=== PATIENT | male | born 1955 | race Caucasian/White ===

== ENCOUNTER → 2018-05-07 17:16 | Outpatient (CLI) | payer MEDICAID, SELFPAY ==
[2018-05-07 18:16] LABS: Basophils # 0.1 K/mm3 (0-0.2); Eosinophils # 0.3 K/mm3 (0.0-0.4); Eosinophils % 3.4 % (0.1-12.0); Hematocrit 51.7 % (42.0-52.0); Hemoglobin 16.8 g/dL (14.1-18.0); Lymphocytes # 2.5 K/mm3 (0.7-4.5); Lymphocytes % 29.7 K/mm3 (10-50); Mean Corpuscular HGB Conc 32.5 g/dL (31.8-35.4); Mean Corpuscular Volume 92.3 fl (80-94); Mean Platelet Volume 8.3 fl (7.4-10.4); Monocytes # 0.5 K/mm3 (0.1-1.0); Monocytes % 5.8 % (1.7-9.3); Neutrophils # 4.9 K/mm3 (1.8-7.8); Platelet Count 200 K/mm3 (142-424); Red Blood Count 5.61 M/mm3 (4.60-6.20); White Blood Count 8.2 K/mm3 (4.8-10.8)
[2018-05-07 18:32] LABS: Alanine Aminotransferase 47 U/L (12-78); Albumin Level 3.7 gm/dL (3.4-5.0); Albumin/Globulin Ratio 1.1 (1.1-1.8); Alkaline Phosphatase 103 U/L (46-116); Anion Gap 15.2 mEq/L (5-15); Bilirubin,Total 0.3 mg/dL (0.2-1.0); Blood Urea Nitrogen 12 mg/dL (7-18); Calcium 8.4 mg/dL (8.5-10.1); Carbon Dioxide 25 mmol/L (21.0-32.0); Chloride 104 mmol/L (98-107); Chol/HDL Ratio 7.9 (1-3.5); Cholesterol 245 mg/dL (140-200); Creatinine,Serum 0.75 mg/dL (0.70-1.30); Estimated Glomerular Filt Rate 105 ml/min (>60); Free T4 (Free Thyroxine) 0.97 ng/dl (0.76-1.46); GFR (African American) 127 ML/MIN (>60); Globulin 3.4 gm/dl (1.3-3.2); Glucose 138 mg/dL (74-106); HDL Cholesterol 31 mg/dL (27-67); Sodium 140 mmol/L (136-145); Thyroid Stimulating Hormone 1.08 uIU/ml (0.358-3.740); Total Protein,Serum 7.1 gm/dL (6.4-8.2)
[2018-05-07 18:33] LABS: Potassium 4.2 mmoL/L (3.5-5.1); Triglycerides 492 mg/dL (30-200)
[2018-05-07 18:34] LABS: Aspartate Amino Transferase 27 U/L (15-37)
== END ==
PROVIDERS: PCP Emergency Medicine; Visit Provider Emergency Medicine
DX: R10.9 Unspecified abdominal pain (principal)
CPT/HCPCS: 80053; 80061; 83880; 84439; 84443; 85025

== ENCOUNTER → 2018-05-10 10:33 | Outpatient (CLI) | payer MEDICAID, SELFPAY ==
--- NOTE | 2018-05-10 10:39 | XR_ITS ---
XR chest 2V HISTORY: Cough, smoker ITS.REASON: abdominal pain ORDERING PHYSICIAN: David Domingo MD PATIENT AGE: 62 years COMPARISON: None FINDINGS: Unremarkable cardiovascular structures. There is evidence of old granulomatous disease. No lobar consolidation or collapse. No acute bony anomalies. IMPRESSION: Old granulomatous disease, no acute finding
== END ==
PROVIDERS: PCP Emergency Medicine; Visit Provider Emergency Medicine
DX: R10.9 Unspecified abdominal pain (principal)
CPT/HCPCS: 71046

== ENCOUNTER → 2018-05-13 11:49 | Outpatient (CLI) | payer MEDICAID, SELFPAY ==
--- NOTE | 2018-05-13 11:50 | NM_ITS ---
History and Indications: Coronary artery disease, history of [place], obesity, hyperlipidemia, chronic tobacco use, family history, chest pain, shortness of breath syncope palpitations and fatigue Procedure: Patient received a 0.4 mg of intravenous Lexiscan, resting heart rate was extreme 9 bpm resting blood pressure 119/76, with Lexiscan maximum heart rate achieved was 99 bpm is less than 85% of the maximum predicted heart rate and a blood pressure was 102/60. With Lexiscan patient complained of shortness of breath and nausea Electrocardiogram: Resting electrocardiogram showed sinus rhythm inferior infarct age indeterminate, with Lexiscan less than 1.[address] segment depression noted from the baseline EKG. Occasional premature ventricular complex seen. The EKG portion of the Lexiscan Myoview is nondiagnostic. Cardiac stress and resting SPECT images: Cardiac stress and resting SPECT images were obtained using technetium 99 Myoview 30.2 mCi stress and 9.9 mCi rest, gated SPECT further analysis of segmental wall motion and calculation of the ejection fraction also done. Cardiac stress and rest SPECT images show a moderate to large size area of fixed defect involving the anterior, anteroapical, apex, anteroseptal and inferoapical wall. This is consistent with area of myocardial scarring without significant brian-infarct ischemia, computer derived ejection fraction is 26%, mild hypo to akinesis involving the anterior, anteroapical, anteroseptal and inferior apical wall. Right ventricle is normal size and contractility. Conclusion: 1. The EKG portion of the Lexiscan Myoview is nondiagnostic. 2. Scintigraphic evidence of extensive myocardial scarring involving the anterior, anteroapical, anteroseptal and inferior apical wall without significant brian-infarct ischemia, computer derived ejection fraction is 26% with multiple segmental wall motion abnormality described above, right ventricle is normal size and contractility. 3. Abnormal Lexiscan Myoview study.
--- NOTE | 2018-05-13 11:50 | CA_ITS ---
PROCEDURE: 2-D M-mode and color Doppler study INDICATIONS FOR THE TEST: Chest painX COPD Heart Murmur Tobacco SmokingX Palpitations Fatigue Syncope Edema Hypertension Diabetes Mellitus Rheumatic Fever SOBXDOE ObesityXHyperlipidemia Family History HD Additional History H/O THROMBUS HEART APPROX 5 YRS AGO H/O CAD,[place], STENT PATIENT INFORMATION HEIGHT: 72 WEIGHT:271 GENDER: Male B/P:111/76 2-D/M-MODE INTERPRETATION: 2-D MEASUREMENTS OBSERVED VALUES IN CMS Right Ventricular Dimension (RVDd) 2.6 Interventricular Septum (Thickness)(IVsd) .7 Left Ventricular Internal Dimensions(LVIDd) 6.1 Left Ventricular Posterior Wall (Thickness)(LVPWd) 1.0 Aortic Root 3.1 Aortic Cusp Separation 1.8 Left Atrial Dimensions (LAD) 3.2 2D 1. Technically difficult study because of the patient's factor and poor acoustic windows 2. The left atrium is mildly enlarged, left ventricle is mildly dilated, reduced left ventricular systolic function, visually estimated ejection fraction approximately 30%, there is marked hypokinesis involving mid to distal septum, anterior, anteroapical and apical wall. There is echodense structure seen in the apex which is likely an left ventricular apical thrombus. 3. The right atrium and right ventricle are mildly dilated with normal contractility. 4. The aortic valve is thickened and calcified leaflet continue to display mobility. 5. The mitral and tricuspid valve leaflets are minimally thickened 6. The pulmonic valve is poorly visualized 7. No significant pericardial effusion noted. DOPPLER INTERROGATION: Doppler interrogation of the aortic, mitral and tricuspid valvular presence of mild mitral and tricuspid regurgitation, tricuspid regurgitation jet velocity is inadequate for calculation of the right ventricular systolic pressure, diastolic parameters are inconclusive. CONCLUSION: 1. Technically difficult study because of the patient's factor and poor acoustic windows 2. Mildly enlarged left atrium, dilated left ventricle, severely reduced left ventricular systolic function, visually estimated ejection fraction 30% with segmental wall motion abnormality described above, there is left ventricular apical thrombus seen. 3. Mild mitral and tricuspid regurgitation 4. No significant pericardial effusion noted.
--- NOTE | 2018-05-13 15:07 | HMH.ITSHM ---
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 []LIPITOR ASA
== END ==
PROVIDERS: PCP Emergency Medicine; Visit Provider Internal Medicine
DX: R01.1 Cardiac murmur, unspecified (principal); I20.9 Angina pectoris, unspecified; I25.110 Atherosclerotic heart disease of native coronary artery with unstable angina pectoris; I25.2 Old myocardial infarction; R06.09 Other forms of dyspnea; F17.200 Nicotine dependence, unspecified, uncomplicated
CPT/HCPCS: 78452; 93017; 93306; A9502; J2785

== ENCOUNTER → 2018-06-17 10:00 | Outpatient (CLI) | payer MEDICAID, SELFPAY ==
--- NOTE | 2018-06-17 10:02 | XR_ITS ---
XR chest 2V HISTORY: ITS.REASON: burning sensation with AICD, check lead placement ORDERING PHYSICIAN: Jovita León PATIENT AGE: 62 years COMPARISON: 06/04/2018 FINDINGS: The cardiomediastinal silhouette and pulmonary vascularity are within normal limits. There has been prior insertion of a bipolar pacemaker with AICD lead which appears to be in good position. The lungs are clear without infiltrates, suspicious nodules, or pleural effusions. No acute bony abnormalities. IMPRESSION: Cardiac pacemaker device remains in place, no change with no acute finding
== END ==
PROVIDERS: PCP Emergency Medicine; Visit Provider Nurse Practitioner Family
DX: Z95.810 Presence of automatic (implantable) cardiac defibrillator (principal)
CPT/HCPCS: 71046

== ENCOUNTER → 2018-08-09 14:53 | Outpatient (CLI) | payer MEDICAID, SELFPAY ==
[2018-08-09 15:48] LABS: Alanine Aminotransferase 40 U/L (12-78); Albumin Level 3.9 gm/dL (3.4-5.0); Albumin/Globulin Ratio 1.2 (1.1-1.8); Alkaline Phosphatase 100 U/L (46-116); Anion Gap 16.1 mEq/L (5-15); Aspartate Amino Transferase 18 U/L (15-37); Bilirubin,Total 0.7 mg/dL (0.2-1.0); Blood Urea Nitrogen 17 mg/dL (7-18); Calcium 8.9 mg/dL (8.5-10.1); Carbon Dioxide 24 mmol/L (21.0-32.0); Chloride 101 mmol/L (98-107); Chol/HDL Ratio 5.1 (1-3.5); Cholesterol 188 mg/dL (140-200); Creatinine,Serum 0.99 mg/dL (0.70-1.30); Estimated Glomerular Filt Rate 76 ml/min (>60); Free T4 (Free Thyroxine) 1.02 ng/dl (0.76-1.46); GFR (African American) 92 ML/MIN (>60); Globulin 3.2 gm/dl (1.3-3.2); Glucose 194 mg/dL (74-106); HDL Cholesterol 37 mg/dL (27-67); LDL Cholesterol 108 mg/dL (0-130); Potassium 4.1 mmoL/L (3.5-5.1); Sodium 137 mmol/L (136-145); Total Protein,Serum 7.1 gm/dL (6.4-8.2); Triglycerides 217 mg/dL (30-200); VLDL Cholesterol 43 mg/dL (0-40)
[2018-08-09 16:21] LABS: Basophils # 0.1 K/mm3 (0-0.2); Basophils % 0.9 % (0.1-2.0); Eosinophils # 0.2 K/mm3 (0.0-0.4); Eosinophils % 3.2 % (0.1-12.0); Hematocrit 48.8 % (42.0-52.0); Hemoglobin 16.5 g/dL (14.1-18.0); Lymphocytes % 27.5 % (10-50); Mean Corpuscular HGB Conc 33.8 g/dL (31.8-35.4); Mean Corpuscular Hemoglobin 30.2 pg (27.0-31.2); Mean Corpuscular Volume 89.5 fl (80-94); Mean Platelet Volume 8.3 fl (7.4-10.4); Monocytes # 0.5 K/mm3 (0.1-1.0); Monocytes % 6.6 % (1.7-9.3); Neutrophils # 4.5 K/mm3 (1.8-7.8); Neutrophils % 61.8 % (37.0-80.0); Platelet Count 175 K/mm3 (142-424); Red Blood Count 5.45 M/mm3 (4.60-6.20); Red Cell Distribution Width 13.5 % (11.5-17.5); White Blood Count 7.2 K/mm3 (4.8-10.8)
[2018-08-11 08:42] LABS: Vitamin D 25 Hydroxy 17.6 ng/mL (30.0-100.0)
== END ==
PROVIDERS: Visit Provider Emergency Medicine
DX: I25.10 Atherosclerotic heart disease of native coronary artery without angina pectoris (principal)
CPT/HCPCS: 80053; 80061; 82652; 84439; 84443; 85025

== ENCOUNTER → 2018-08-20 10:04 | Outpatient (CLI) | payer MEDICAID, SELFPAY ==
[2018-08-20 14:05] LABS: Hemoglobin A1C 7.7 % (0.0-7.0)
== END ==
PROVIDERS: Visit Provider Emergency Medicine
DX: R73.9 Hyperglycemia, unspecified (principal)
CPT/HCPCS: 36415; 83036

== ENCOUNTER → 2018-09-14 08:45 | Outpatient (CLI) | payer MEDICAID, SELFPAY | PROVIDERS: PCP Physician Assistant; Visit Provider Physician Assistant | DX: Z71.3 Dietary counseling and surveillance (principal); E11.9 Type 2 diabetes mellitus without complications | CPT/HCPCS: 97802 ==

== ENCOUNTER → 2018-10-26 11:47 | Outpatient (CLI) | payer MEDICAID, SELFPAY ==
--- NOTE | 2018-10-26 11:51 | CA_ITS ---
PROCEDURE: 2-D M-mode and color Doppler study INDICATIONS FOR THE TEST: Chest pain COPD Heart Murmur Tobacco Smoking+ Palpitations Fatigue Syncope Edema Hypertension+Diabetes Mellitus Rheumatic Fever SOB+MONGE Obesity+Hyperlipidemia+ Family History HD Additional History 10/22/18 LEFT ATRIAL APPENDAGE CLIP, LV THROMBUS, AFIB, AICD, PT FLAT ON BACK DUE TO RECENT SURGERY PATIENT INFORMATION HEIGHT: 72 WEIGHT:258 GENDER: Male B/P:109/60 2-D/M-MODE INTERPRETATION: 2-D MEASUREMENTS OBSERVED VALUES IN CMS Right Ventricular Dimension (RVDd) Interventricular Septum (Thickness)(IVsd) Left Ventricular Internal Dimensions(LVIDd) Left Ventricular Posterior Wall (Thickness)(LVPWd) Aortic Root 3.4 Aortic Cusp Separation 1.9 Left Atrial Dimensions (LAD) 4.0 2D 1. Technically difficult study because of the patient's factor and poor acoustic windows 2. Left atrium is mildly enlarged, left ventricle is mildly dilated, there is severely reduced left ventricular systolic function, visually estimated ejection fraction 25-30%, there is marked hypo to akinesis involving the mid to distal septum, anterior, anteroapical, apex and inferior apical bryant. There is left ventricle apical thrombus seen. 3. The right atrium and right ventricle are normal size and contractility. There is a AICD lead seen in the right ventricle. 4. The mitral and tricuspid valve leaflets are minimally thickened 5. The aortic valve is is minimally thickened and calcified leaflet continue to display mobility. 6. No significant pericardial effusion noted. DOPPLER INTERROGATION: Doppler interrogation of the aortic, mitral and tricuspid valvular presence of mild mitral and tricuspid regurgitation, tricuspid regurgitation jet velocity is inadequate for calculation of the right ventricular systolic pressure, diastolic parameters are inconclusive. CONCLUSION: 1. Technically difficult study because of the patient's factor and poor acoustic windows 2. Mildly enlarged left atrium, mildly dilated left ventricle, severely reduced left ventricular systolic function, visually estimated ejection fraction approximately 25-30% with multiple segmental wall motion abnormality described above, there is left ventricular apical thrombus seen. Diastolic parameters are inconclusive 3. Mild mitral and tricuspid regurgitation 4. No significant pericardial effusion noted.
--- NOTE | 2018-10-26 12:26 | XR_ITS ---
XR chest 2V HISTORY: ITS.REASON: dyspnea, S/P CASSANDRA procedure ORDERING PHYSICIAN: Santana Beyer MD PATIENT AGE: 63 years COMPARISON: 1221 and 18 FINDINGS: Bipolar pacer remains in place. There has been an interval left atrial appendage clipping. Consolidation is present in the lingula which has developed in the interval. There is also some atelectasis or infiltrate in the right mid lung along the major fissure. There is mild blunting of the left CP angle. IMPRESSION: 1. Interval left atrial appendage clipping. 2. Opacification within the lingula consistent with pneumonia and/or volume loss with thickening along the right major fissure and small left pleural effusion
== END ==
PROVIDERS: PCP Emergency Medicine; Visit Provider Internal Medicine
DX: R06.02 Shortness of breath (principal); I25.10 Atherosclerotic heart disease of native coronary artery without angina pectoris; I42.0 Dilated cardiomyopathy; I50.20 Unspecified systolic (congestive) heart failure; I48.0 Paroxysmal atrial fibrillation; E11.8 Type 2 diabetes mellitus with unspecified complications; E66.09 Other obesity due to excess calories; E78.5 Hyperlipidemia, unspecified; Z95.810 Presence of automatic (implantable) cardiac defibrillator
CPT/HCPCS: 36415; 71046; 83880; 93306

== ENCOUNTER → 2018-12-28 13:43 | Outpatient (CLI) | payer MEDICAID, SELFPAY ==
[2018-12-29 14:14] LABS: Basophils # 0.1 K/mm3 (0-0.2); Basophils % 1.1 % (0.1-2.0); Eosinophils # 0.2 K/mm3 (0.0-0.4); Eosinophils % 2.6 % (0.1-12.0); Hematocrit 53.7 % (42.0-52.0); Hemoglobin 16.8 g/dL (14.1-18.0); Lymphocytes # 2.4 K/mm3 (0.7-4.5); Lymphocytes % 27.5 % (10-50); Mean Corpuscular HGB Conc 31.2 g/dL (31.8-35.4); Mean Corpuscular Hemoglobin 29.6 pg (27.0-31.2); Mean Corpuscular Volume 94.8 fl (80-94); Monocytes # 0.6 K/mm3 (0.1-1.0); Neutrophils # 5.3 K/mm3 (1.8-7.8); Neutrophils % 61.8 % (37.0-80.0); Platelet Count 226 K/mm3 (142-424); Red Blood Count 5.67 M/mm3 (4.60-6.20); Red Cell Distribution Width 13.8 % (11.5-17.5); White Blood Count 8.6 K/mm3 (4.8-10.8)
[2018-12-29 14:37] LABS: Alanine Aminotransferase 42 U/L (12-78); Albumin Level 3.9 gm/dL (3.4-5.0); Albumin/Globulin Ratio 1.3 (1.1-1.8); Alkaline Phosphatase 105 U/L (46-116); Anion Gap 15.4 mEq/L (5-15); Aspartate Amino Transferase 27 U/L (15-37); Bilirubin,Total 0.5 mg/dL (0.2-1.0); Blood Urea Nitrogen 12 mg/dL (7-18); Calcium 8.8 mg/dL (8.5-10.1); Carbon Dioxide 25 mmol/L (21.0-32.0); Chloride 104 mmol/L (98-107); Chol/HDL Ratio 4.1 (1-3.5); Cholesterol 149 mg/dL (140-200); Creatinine,Serum 0.94 mg/dL (0.70-1.30); Estimated Glomerular Filt Rate 81 ml/min (>60); GFR (African American) 98 ML/MIN (>60); Glucose 94 mg/dL (74-106); HDL Cholesterol 36 mg/dL (27-67); LDL Cholesterol 87 mg/dL (0-130); Potassium 4.4 mmoL/L (3.5-5.1); Sodium 140 mmol/L (136-145); T4 (Thyroxine) 7.1 ug/dl (4.7-13.3); Thyroid Stimulating Hormone 1.04 uIU/ml (0.358-3.740); Total Protein,Serum 6.9 gm/dL (6.4-8.2); Triglycerides 128 mg/dL (30-200); VLDL Cholesterol 26 mg/dL (0-40)
[2019-01-17 23:09] LABS: 1,25-Dihydroxy, Vitamin D-2 37 pg/mL (.)
[2019-01-21 17:41] LABS: 1,25 Dihydroxy Vitamin D 59 pg/mL (.); 1,25-Dihydroxy, Vitamin D-3 22 pg/mL (.)
== END ==
PROVIDERS: Visit Provider Emergency Medicine
DX: E11.9 Type 2 diabetes mellitus without complications (principal)
CPT/HCPCS: 80053; 80061; 82652; 83036; 84436; 84443; 85025

== ENCOUNTER → 2018-12-30 10:58 | Outpatient (CLI) | payer MEDICAID, SELFPAY ==
--- NOTE | 2018-12-30 11:04 | XR_ITS ---
XR foot wt bearing LT 3V HISTORY: ITS.REASON: pain ORDERING PHYSICIAN: Evonne Chanel DPM PATIENT AGE: 63 years COMPARISON: None FINDINGS: Bone density, joint spaces and alignment are normal. There is no acute fracture. There are small plantar spur and linear calcification related to the distal Achilles tendon near the attachment to the calcaneus. Impression: No acute process. Plantar small calcaneal spur. Probable Achilles calcific tendinosis.
--- NOTE | 2018-12-30 11:04 | XR_ITS ---
XR foot wt bearing RT 3V HISTORY: ITS.REASON: pain ORDERING PHYSICIAN: Evonne Chanel DPM PATIENT AGE: 63 years COMPARISON: None FINDINGS: No fracture or dislocation. No lytic or blastic change. There is normal mineralization.. The joint spaces are well-preserved. No significant degenerative/arthritic changes. No erosive changes evident. There is a 2 mm plantar calcaneal spur. IMPRESSION: No acute process. Small plantar calcaneal spur.
== END ==
PROVIDERS: PCP Emergency Medicine; Visit Provider Podiatrist
DX: M79.672 Pain in left foot (principal); M79.671 Pain in right foot
CPT/HCPCS: 73630

== ENCOUNTER → 2019-01-10 10:17 | Outpatient (CLI) | payer MEDICAID, SELFPAY ==
--- NOTE | 2019-01-10 10:20 | US_ITS ---
US Arterial Lower Ext Rest History: Claudication, skin changes, smoker ORDERING PHYSICIAN: David Domingo MD PATIENT AGE: 63 years TECHNIQUE: Segmental pressures obtained of both right and left leg. These are compared to brachial blood pressure to yield index at each level sampled including summary NISHI. The data sheets from the procedure are available in PACS FINDINGS Rest study only performed today No prior studies available for comparison. Blood pressures reported are in millimeters mercury. RIGHT LEG NISHI = 1.3. RIGHT LEG TBI=.8 Brachial BP: 88 Thigh BP: 104 Calf BP: 112 Ankle PT: 126 Ankle DP : 125 Digit =81 LEFT LEG NISHI = .7 LEFT LEG TBI= .4 Brachial BPD: 99 Thigh BP: 112 Calf BP: 64 Ankle PT:66 Ankle DP: 73 Digit = 44 Pulses and waveforms: Decreased pulses and waveforms on the left IMPRESSION: 1. Normal right NISHI. 2. Low left NISHI of 0.7 consistent with moderate peripheral vascular disease. The drop in pressures between the thigh and calf suggesting a stenosis in the left SFA or popliteal artery which may be confirmed with CT angiogram if clinically desired..
[2019-01-12 14:41] LABS: Folate 7.9 ng/mL (>3.0)
[2019-01-12 14:44] LABS: Vitamin B12 603 pg/mL (232-1245)
== END ==
PROVIDERS: Physician Assistant; PCP Emergency Medicine; Visit Provider Emergency Medicine
DX: R09.89 Other specified symptoms and signs involving the circulatory and respiratory systems (principal); R53.83 Other fatigue; R68.89 Other general symptoms and signs
CPT/HCPCS: 36415; 82607; 82746; 93923

== ENCOUNTER → 2019-01-10 10:54 | Outpatient (CLI) | payer MEDICAID, SELFPAY | PROVIDERS: Visit Provider Physician Assistant | DX: R53.83 Other fatigue (principal) | CPT/HCPCS: 36415; 82607; 82746 ==

== ENCOUNTER → 2019-01-31 12:41 | Outpatient (CLI) | payer MEDICAID, SELFPAY ==
--- NOTE | 2019-01-31 12:50 | XR_ITS ---
XR chest 2V HISTORY: ITS.REASON: dyspnea/tachy ORDERING PHYSICIAN: Santana Beyer MD PATIENT AGE: 63 years COMPARISON: 10/26/2018 FINDINGS: The cardiomediastinal silhouette and pulmonary vascularity are within normal limits. Bipolar pacemaker is present from left subclavian approach. Prior atrial appendage clipping. Atelectatic or fibrotic changes are present in the left lung base. Previously noted lingular pneumonia has shown improvement. Mild atelectatic or fibrotic changes are present in the right midlung. No acute bony findings. IMPRESSION: Atelectasis or fibrosis in the left lung base and right midlung
[2019-01-31 12:58] LABS: Basophils # 0.1 K/mm3 (0-0.2); Basophils % 0.7 % (0.1-2.0); Eosinophils # 0.2 K/mm3 (0.0-0.4); Hematocrit 55.5 % (42.0-52.0); Hemoglobin 17.7 g/dL (14.1-18.0); Lymphocytes # 2.3 K/mm3 (0.7-4.5); Lymphocytes % 20.8 % (10-50); Mean Corpuscular Hemoglobin 28.9 pg (27.0-31.2); Mean Corpuscular Volume 90.4 fl (80-94); Mean Platelet Volume 7.6 fl (7.4-10.4); Monocytes # 0.8 K/mm3 (0.1-1.0); Monocytes % 7.2 % (1.7-9.3); Neutrophils # 7.5 K/mm3 (1.8-7.8); Neutrophils % 69.2 % (37.0-80.0); Platelet Count 251 K/mm3 (142-424); Red Blood Count 6.14 M/mm3 (4.60-6.20); Red Cell Distribution Width 13.4 % (11.5-17.5); White Blood Count 10.9 K/mm3 (4.8-10.8)
[2019-01-31 13:15] LABS: Anion Gap 11.4 mEq/L (5-15); Blood Urea Nitrogen 14 mg/dL (7-18); Calcium 9.4 mg/dL (8.5-10.1); Carbon Dioxide 31 mmol/L (21.0-32.0); Chloride 100 mmol/L (98-107); Creatinine,Serum 1.12 mg/dL (0.70-1.30); Estimated Glomerular Filt Rate 66 ml/min (>60); GFR (African American) 80 ML/MIN (>60); Glucose 131 mg/dL (74-106); Potassium 4.4 mmoL/L (3.5-5.1); Sodium 138 mmol/L (136-145); Troponin I < 0.02 ng/ml (0.00-0.06)
[2019-01-31 13:18] LABS: D-Dimer 464 ng/mL (0-400)
--- NOTE | 2019-01-31 13:55 | CA_ITS ---
PROCEDURE: 2-D M-mode and color Doppler study INDICATIONS FOR THE TEST: Chest pain X COPDX Heart Murmur Tobacco SmokingX Palpitations Fatigue Syncope Edema HypertensionXDiabetes Mellitus Rheumatic Fever SOBXDOEXObesityXHyperlipidemiaX Family History HD Additional History AICD,KNOWN LV THROMBUS,LA APPENDAGE CLIP,AF,CAD,CM PATIENT INFORMATION HEIGHT: 72 WEIGHT:247 GENDER: Male B/P:98/62 2-D/M-MODE INTERPRETATION: 2-D MEASUREMENTS OBSERVED VALUES IN CMS Right Ventricular Dimension (RVDd) 3.4 Interventricular Septum (Thickness)(IVsd) .9 Left Ventricular Internal Dimensions(LVIDd) 6.0 Left Ventricular Posterior Wall (Thickness)(LVPWd) .9 Aortic Root 3.0 Aortic Cusp Separation 1.8 Left Atrial Dimensions (LAD) 3.7 2D 1. Left atrium is mildly enlarged, left ventricle is mildly dilated, there is no concentric left ventricular hypertrophy, visually estimated 30%, there is marked hypo to akinesis involving mid to distal septum, anterior, anterior anteroapical and apical wall. 2. The right atrium and right ventricle are mildly enlarged with normal contractility, there is an AICD lead seen in the right ventricle. 3. The aortic valve is minimally thickened and fibrosed. 4. The mitral and tricuspid valve leaflets are minimally thickened. 5. The pulmonic valve is poorly visualized. 6. No significant pericardial effusion noted. DOPPLER INTERROGATION: Doppler interrogation of the aortic, mitral and tricuspid valvular presence of mild mitral and tricuspid regurgitation, tricuspid regurgitation jet velocity is inadequate for calculation of the right ventricular systolic pressure, diastolic parameters are inconclusive. CONCLUSION: 1. Mildly enlarged left atrium, mildly dilated left ventricle, there is no concentric left ventricular hypertrophy, visually estimated ejection fraction 30% with multiple segmental wall motion abnormality described above, diastolic parameters are inconclusive. 2. Mild mitral and tricuspid regurgitation. 3. No significant pericardial effusion noted.
== END ==
PROVIDERS: PCP Emergency Medicine; Visit Provider Internal Medicine
DX: R06.00 Dyspnea, unspecified (principal); I20.9 Angina pectoris, unspecified; R00.0 Tachycardia, unspecified
CPT/HCPCS: 36415; 71046; 80048; 83880; 84484; 85025; 85378; 93306

== ENCOUNTER → 2019-02-01 09:52 | Outpatient (CLI) | payer MEDICAID, SELFPAY ==
--- NOTE | 2019-02-01 09:56 | CT_ITS ---
CT chest wo con HISTORY: Shortness of air, smoker, tobacco use ITS.REASON: high resolution CT of the chest ORDERING PHYSICIAN: Santana Beyer MD PATIENT AGE: 63 years COMPARISON: None Technique: Axial images were obtained. Sagittal, and coronal reformatted images are also generated and reviewed. All CT scans at the facility use one or more dose reduction, viz: automated exposure control, ma/kV adjustment per patient size (including targeted exams where dose is matched to indication, i.e. head), or iterative reconstruction technique. FINDINGS: Coronary artery calcification and/or stents noted. Cardiac pacemaker device is present. Normal heart size. There is minimal thickening of the pericardium. There are few scattered small lymph nodes in the mediastinum and ezekiel some of which are calcified. Calcified granuloma is present in the right lower lobe. There are mild paraseptal emphysematous changes with some hyperinflation and mild bronchial thickening consistent with obstructive chronic bronchitis. No suspicious pulmonary nodules are evident. There are some scattered linear areas of fibrotic change noted in both upper lobes. High-resolution images DO NOT demonstrate interlobular septal thickening or evidence of diffuse pulmonary fibrosis. There is trace left-sided effusion. There has been prior left atrial appendage clipping. No acute bony findings. Upper abdominal images are unremarkable. IMPRESSION: 1. Mild paraseptal emphysematous change with obstructive chronic bronchitis and scattered areas of scarring/fibrotic change 2. No evidence of interstitial pneumonitis or diffuse pulmonary fibrosis. 3. Trace left-sided effusion
== END ==
PROVIDERS: PCP Emergency Medicine; Visit Provider Internal Medicine
DX: J84.10 Pulmonary fibrosis, unspecified (principal); R06.02 Shortness of breath; R07.9 Chest pain, unspecified; R93.89 Abnormal findings on diagnostic imaging of other specified body structures
CPT/HCPCS: 71250

== ENCOUNTER → 2019-02-22 11:28 | Outpatient (CLI) | payer MEDICAID, SELFPAY ==
[2019-02-22 11:50] VITALS: PULSE 69; PULSE 74
== END ==
PROVIDERS: PCP Emergency Medicine; Visit Provider Emergency Medicine
DX: J18.9 Pneumonia, unspecified organism (principal); J44.9 Chronic obstructive pulmonary disease, unspecified; R06.02 Shortness of breath; R09.1 Pleurisy
CPT/HCPCS: 94060; 94618; 94640

== ENCOUNTER → 2019-11-14 09:39 | Outpatient (CLI) | payer OTHER, SELFPAY ==
[2019-11-14 10:03] LABS: Basophils # 0.1 K/mm3 (0-0.2); Basophils % 0.7 % (0.1-2.0); Eosinophils # 0.3 K/mm3 (0.0-0.4); Eosinophils % 3.6 % (0.1-12.0); Hematocrit 49.1 % (42.0-52.0); Hemoglobin 16.5 g/dL (14.1-18.0); Lymphocytes # 2.1 K/mm3 (0.7-4.5); Lymphocytes % 29.3 % (10-50); Mean Corpuscular HGB Conc 33.6 g/dL (31.8-35.4); Mean Corpuscular Hemoglobin 29.2 pg (27.0-31.2); Mean Corpuscular Volume 86.9 fl (80-94); Mean Platelet Volume 7.2 fl (7.4-10.4); Monocytes # 0.6 K/mm3 (0.1-1.0); Neutrophils % 57.5 % (37.0-80.0); Platelet Count 189 K/mm3 (142-424); Red Blood Count 5.65 M/mm3 (4.60-6.20); Red Cell Distribution Width 13.4 % (11.5-17.5)
[2019-11-14 10:35] LABS: Alanine Aminotransferase 32 U/L (12-78); Albumin Level 4.2 g/dl (3.5-5.0); Albumin/Globulin Ratio 1.6 (1.1-1.8); Alkaline Phosphatase 97 U/L (38-126); Anion Gap 8.2 mEq/L (5-15); Aspartate Amino Transferase 29 U/L (17-59); Bilirubin,Total 0.6 mg/dl (0.2-1.3); Blood Urea Nitrogen 13 mg/dl (9-20); Calcium 9.6 mg/dl (8.4-10.2); Carbon Dioxide 27 mmol/L (22.0-30.0); Chloride 106 mmol/L (98-107); Chol/HDL Ratio 3.1 (1-3.5); Cholesterol 137 mg/dl (140-200); Estimated Glomerular Filt Rate 113 ml/min (>60); GFR (African American) 137 ML/MIN (>60); Globulin 2.7 g/dL (1.3-3.2); Glucose 144 mg/dl (74-100); HDL Cholesterol 44 mg/dl (40-60); Potassium 4.2 mmoL/L (3.5-5.1); Sodium 137 mmol/L (136-145); Total Protein,Serum 6.9 g/dl (6.3-8.2); Triglycerides 156 mg/dl (30-150); VLDL Cholesterol 31 mg/dL (0-40)
[2019-11-14 10:51] LABS: Free T4 (Free Thyroxine) 1.73 ng/dl (0.78-2.19)
[2019-11-14 10:58] LABS: Hemoglobin A1C 6.3 % (4.0-6.0)
[2019-11-14 11:06] LABS: Thyroid Stimulating Hormone < 0.02 uIU/mL (0.465-4.68)
[2019-11-15 15:23] LABS: Vitamin D 25 Hydroxy 35.4 ng/mL (30.0-100.0)
== END ==
PROVIDERS: Visit Provider Emergency Medicine
DX: E11.9 Type 2 diabetes mellitus without complications (principal); E55.9 Vitamin D deficiency, unspecified; E78.5 Hyperlipidemia, unspecified; J44.9 Chronic obstructive pulmonary disease, unspecified; R06.00 Dyspnea, unspecified; Z79.84 Long term (current) use of oral hypoglycemic drugs
CPT/HCPCS: 36415; 80053; 80061; 82652; 83036; 84439; 84443; 85025

== ENCOUNTER → 2019-12-01 08:30 | Outpatient (CLI) | payer MEDICARE, OTHER, SELFPAY ==
[2019-12-01 10:55] LABS: Thyroid Stimulating Hormone < 0.02 uIU/mL (0.465-4.68)
== END ==
PROVIDERS: Visit Provider Emergency Medicine
DX: R79.89 Other specified abnormal findings of blood chemistry (principal); Z79.899 Other long term (current) drug therapy
CPT/HCPCS: 36415; 84443

== ENCOUNTER → 2019-12-19 14:52 | Outpatient (CLI) | payer MEDICARE, OTHER, SELFPAY ==
[2019-12-21 11:14] LABS: Thyroid Peroxidase Antibodies 355 IU/mL (0-34)
[2019-12-22 10:13] LABS: Thyroid Stimulating Immunoglob 3.08 IU/L (0.00-0.55)
== END ==
PROVIDERS: Visit Provider Otolaryngology
DX: E05.90 Thyrotoxicosis, unspecified without thyrotoxic crisis or storm (principal)
CPT/HCPCS: 36415; 84445; 84481; 86376

== ENCOUNTER 2019-12-27 10:43 | Emergency (ER) | payer MEDICARE, OTHER, SELFPAY ==
[2019-12-27] VITALS (10 sets, daily range): BP systolic 80–102; BP diastolic 52–71; PULSE 64–83; RESP 16–18; TEMP 36.6; O2SAT 92–97; BMI 32.8
--- NOTE | 2019-12-27 10:39 | ECG_ITS ---
APPROVED REPORT Exam: Resting ECG HR:74 bpm ECG Measurements Heart Rate 74 AXES QRSd 88 QRS 56 QT 384 T 92 QTc 426 <Conclusion> Demand pacemaker, interpretation is based on intrinsic rhythm Atrial flutter with variable AV block with premature ventricular or aberrantly conducted complexes Low voltage QRS Cannot rule out Anterior infarct, age undetermined Abnormal ECG Electronically signed by : Timothy Mireles, 01/02/2020 12:08:22
--- NOTE | 2019-12-27 10:55 | XR_ITS ---
PROCEDURE: XR CHEST PORTABLE CLINICAL HISTORY: chest pain COMPARISON: [id number] XR chest portable from 06/04/2018 CXR2V XR chest 2V from 06/17/2018 CXR2V XR chest 2V from 06/25/[address] chest wo con from 02/01/2019 FINDINGS: There is a stable 8 millimeter calcified granuloma within the right midlung field. Multi lead trans venous pacemaker is present. Cardiac silhouette and soft tissues are intact IMPRESSION: Stable right mid lung field calcified granuloma, pacemaker Dictated by: Gamaliel Ramos 12/27/2019 11:19 Electronically signed by Gamaliel Ramos in [facility] 12/27/2019 11:19
--- NOTE | 2019-12-27 11:03 | PC.NURSE ---
Rad at bedside
[2019-12-27 11:14] LABS: Basophils # 0.1 K/mm3 (0-0.2); Basophils % 0.5 % (0.1-2.0); Eosinophils # 0.2 K/mm3 (0.0-0.4); Eosinophils % 2.1 % (0.1-12.0); Hematocrit 46.6 % (42.0-52.0); Hemoglobin 15.9 g/dL (14.1-18.0); Lymphocytes # 1.8 K/mm3 (0.7-4.5); Mean Corpuscular HGB Conc 34.1 g/dL (31.8-35.4); Mean Corpuscular Hemoglobin 30.3 pg (27.0-31.2); Mean Platelet Volume 7.8 fl (7.4-10.4); Monocytes # 0.9 K/mm3 (0.1-1.0); Monocytes % 9.4 % (1.7-9.3); Neutrophils # 6.2 K/mm3 (1.8-7.8); Platelet Count 186 K/mm3 (142-424); Red Blood Count 5.24 M/mm3 (4.60-6.20); Red Cell Distribution Width 12.8 % (11.5-17.5); White Blood Count 9.1 K/mm3 (4.8-10.8)
[2019-12-27 11:17] LABS: Chloride 97 mmol/L (98-107); Potassium 4.1 mmoL/L (3.5-5.1); Sodium 137 mmol/L (136-145)
[2019-12-27 11:20] LABS: Anion Gap 14.1 mEq/L (5-15); Blood Urea Nitrogen 17 mg/dl (9-20); Carbon Dioxide 30 mmol/L (22.0-30.0); Creatinine Clearance Estimated 114 mL/min (50-200); Estimated Glomerular Filt Rate 85 ml/min (>60); GFR (African American) 102 ML/MIN (>60); Glucose 183 mg/dl (74-100)
--- NOTE | 2019-12-27 11:22 | PC.NURSE ---
Pt states he generally has low blood pressure but not normally as low as it currently is. Riki Jordan, promotional representative is starting IV fluids at this time.
[2019-12-27 11:33] LABS: Troponin I 0.02 ng/ml (0.00-0.034)
--- NOTE | 2019-12-27 12:42 | PC.NURSE ---
Walter Esquivel at bedside
--- NOTE | 2019-12-27 12:52 | PC.NURSE ---
Walter Esquivel with pt at this time
--- NOTE | 2019-12-27 12:57 | PC.NURSE ---
Dr Linder at bedside
--- NOTE | 2019-12-27 13:03 | HMH.CNCARD ---
History of Present Illness Consult date: 12/27/19 Requesting physician: Rafita Linder Consult reason: chest pain Chief complaint: chest pain, left arm pain/numbness Additional Medical History:: 1. CAD A. History of STEMI, s/p ELAINE to LAD B. Cardiac cath, 05/2018, ANGIOGRAPHIC RESULTS: 1. The left main artery normal 2. The left anterior descending artery has very proximal mild aneurysmal dilatation followed by 20-30% stenoses. Distal to the first septal carbon paper interleafer and first diagonal artery stent is widely patent free of in-stent restenosis. Distal to the stent there is an anatomical step down with no focal stenosis greater than 20%. 3. The circumflex artery is nondominant yet still is rise to a large first obtuse marginal artery which is normal 4. The right coronary artery is a dominant vessel and has mild vascular ectasia throughout the proximal segment followed by a mid vessel smooth 20% stenosis. 5. The VIVEROS ventriculogram reveals left ventricular dilatation with a large anterior apical and inferior apical akinetic aneurysmal section estimated ejection fraction of 20% 6. The left ventricular end-diastolic pressure 20 mmHg IMPRESSION: 1. Akinetic anterior apical and inferior apical left ventricle likely from a previous STEMI which is supplied by a widely patent left anterior descending artery. 2. Severe left ventricular dysfunction with an estimated ejection fraction of 20% 3. Mildly elevated LVEDP PLAN: 1. Medical management for coronary disease 2. Standard therapy for systolic heart failure 3. Patient should be evaluated for an AICD and possible LIFEGUARD-D therapy if a candidate 2. DM 3. Ischemic cardiomyopathy A. [facility] AICD, implanted 06/04/2018 B. Chronic systolic CHF C. Echo, 01/2019, mildly enlarged left atrium, mild left ventricular dilatation, no concentric LVH. EF 30% with multiple segmental wall motion abnormalities (hypo-to akinesis involving mid to distal septum, anterior, anterior apical and apical bryant), diastolic parameters inconclusive. Mild MR and TR. 4. Hyperthyroidism, diagnosed, 11/[address] Dey, ENT, 12/2019 5. History of atrial fibrillation/atrial flutter A. History of left atrial appendage clipping 6. History of low BP due to med for ischemic cardiomyopathy 7. Hyperlipidemia 8. COPD 9. GERD History of present illness: 64-year-old white male with known history of ischemic cardiomyopathy and coronary artery disease with prior ST elevation [place] and coronary stenting many years ago presented to the emergency department for evaluation of left arm discomfort/numbness along with chest pain that has increased in intensity over the last 4 days. Patient does relate history of congestive heart failure and intermittent use of Lasix due to borderline low blood pressure. Due to the current symptoms he did take his Lasix for couple of days earlier this week without any change in his symptoms. The discomfort in his arm today increased to the point that he wanted to obtain further evaluation. Patient does relate taking 2 powdered aspirin earlier in the week without change in symptoms. Initial evaluation in the ER included a troponin which was normal and EKG showing underlying atrial fibrillation without acute ST segment changes. [facility] History Medical History: Reports:: Atrial Fibrillation, Cardiomyopathy, Congestive Heart Failure, Coronary Artery Disease, Gastroesophageal Reflux Disease(GERD), Hyperlipidemia, Hypertension, Internal Pacemaker, Myocardial Infarction, Pulmonary Embolism Denies:: Cancer, Diabetes Mellitus Type 1, Diabetes Mellitus Type 2, Kidney Stones, MRSA, Seizures *Have you ever received a pneumonia vaccine?: No *Have you received a flu vaccine this season?: Yes Other Medical History: Denies: Blood Transfusion Reaction Laterality Cases: Bilateral: Tonsillectomy, Other Other Surgeries: Yes: Cardiac Catheterization, Cardiac Surgery, Coronary Stent,
--- NOTE | 2019-12-27 13:47 | PC.NURSE ---
Pepito[employer] office staff at bedside interrogating pacemaker
--- NOTE | 2019-12-27 13:48 | PC.NURSE ---
Walter Esquivel at bedside again at this time.
--- NOTE | 2019-12-27 13:50 | CT_ITS ---
PROCEDURE: CT HEAD/BRAIN WO CON CLINICAL INDICATION: numbness in arm COMPARISON: No exams were available for comparison TECHNIQUE: Axial images obtained. All CT scans at the facility use one or more dose reduction, viz: automated exposure control, ma/kV adjustment per patient size (including targeted exams where dose is matched to indication, i.e. head), or iterative reconstruction technique. FINDINGS: No midline shift, mass effect, intracranial hemorrhage, hydrocephalus, or extra-axial fluid collection is evident. The calvarium has an unremarkable appearance. No mastoid effusion. No sinus air-fluid level. IMPRESSION: No acute intracranial finding. Note: If a subtle CVA is suspected than a MR scan recommended. Dictated by: Gamaliel Ramos 12/27/2019 15:08 Electronically signed by Gamaliel Ramos in [facility] 12/27/2019 15:08
--- NOTE | 2019-12-27 13:50 | CT_ITS ---
PROCEDURE: CT CERVICAL SPINE WO CON CLINICAL INDICATION: numbness in arm COMPARISON: No exams were available for comparison TECHNIQUE: Axial images obtained with sagittal and coronal reformats. All CT scans at the facility use one or more dose reduction, viz: automated exposure control, ma/kV adjustment per patient size (including targeted exams where dose is matched to indication, i.e. head), or iterative reconstruction technique. Axial spiral CT scanning performed of the cervical spine beginning at the base of the skull and continuing to the upper T-spine. 3-D multiplanar reconstruction with 3-D manipulation of volumetric data set in image rendering was completed by the radiologist and/or technologist with the supervision of the radiologist on independent workstation. FINDINGS: No fracture nor subluxation is evident. Normal prevertebral soft tissues. Facets, neural foramen and vertebral bodies intact and unremarkable. Normal C1/C2 relationships. Apices of lungs are clear with no acute findings. IMPRESSION: Cervical spine intact with no fracture nor subluxation. Dictated by: Gamaliel Ramos 12/27/2019 15:11 Electronically signed by Gamaliel Ramos in [facility] 12/27/2019 15:11
--- NOTE | 2019-12-27 13:59 | PC.NURSE ---
Pt to rad for CT
--- NOTE | 2019-12-27 14:24 | PC.NURSE ---
Pt returned from rad.
[2019-12-27 15:08] LABS: Troponin I 0.01 ng/ml (0.00-0.034)
--- NOTE | 2019-12-27 15:24 | HMH.EDCP ---
ED Disposition Clinical Impression: Atypical chest pain Disposition: Home, Self-Care Condition on Discharge: Good Referrals: David Domingo MD [Primary Care Provider] - - Critical Care Critical Care Time: No Attestation: On 12/27/19, the high probability of a clinically significant, sudden or life threatening deterioration of the following system(s) required my full and direct attention, intervention and personal management. The time I documented below is in addition to time spent performing reported procedures but includes the following listed in this critical care notation. Medical Decision Making - Medical Records Medical records reviewed: Yes: I reviewed the patient's medical records. - Sherman Inquiry Pt receiving controlled substance: No Vital Signs: 12/27/19 11:08 12/27/19 11:21 12/27/19 11:44 Pulse Rate [Right Radial] 80 73 68 Respiratory Rate 16 18 Blood Pressure [Right Arm] 92/53 L 80/52 L 96/62 L Blood Pressure Mean [Right Arm] 66 61 73 Blood Pressure Source [Right Arm] Automatic Cuff Manual Cuff/ Auscultation Automatic Cuff Blood Pressure Position [Right Arm] Sitting Sitting Sitting 02 Sat by Pulse Oximetry 92 L 95 93 L Oxygen Delivery Method Room Air Room Air 12/27/19 12:22 12/27/19 12:25 12/27/19 13:31 Pulse Rate [Right Radial] 70 65 65 Respiratory Rate Blood Pressure [Right Arm] 96/61 L 96/61 L 92/65 L Blood Pressure Mean [Right Arm] 72 72 74 Blood Pressure Source [Right Arm] Automatic Cuff Automatic Cuff Automatic Cuff Blood Pressure Position [Right Arm] Sitting Sitting Sitting 02 Sat by Pulse Oximetry 94 L 94 L 96 Oxygen Delivery Method Room Air Room Air Room Air 12/27/19 14:24 12/27/19 14:52 Pulse Rate [Right Radial] 73 67 Respiratory Rate Blood Pressure [Right Arm] 91/64 L 101/71 L Blood Pressure Mean [Right Arm] 73 81 Blood Pressure Source [Right Arm] Automatic Cuff Automatic Cuff Blood Pressure Position [Right Arm] Sitting Sitting 02 Sat by Pulse Oximetry 92 L 93 L Oxygen Delivery Method Room Air Room Air - Lab Data Lab results reviewed: Yes: I reviewed the patient's lab results. Lab Results 12/27/19 11:05: WBC 9.1, RBC 5.24, Hgb 15.9, Hct 46.6, MCV 89.0, MCH 30.3, MCHC 34.1, RDW 12.8, Plt Count 186, MPV 7.8, Neut % (Auto) 68.0, Lymph % (Auto) 20.0, [place] % (Auto) 9.4 H, Eos % (Auto) 2.1, Baso % (Auto) 0.5, Neut # (Auto) 6.2, Lymph # (Auto) 1.8, [place] # (Auto) 0.9, Eos # (Auto) 0.2, Baso # (Auto) 0.1 12/27/19 11:05: Sodium 137, Potassium 4.1, Chloride 97 L, Carbon Dioxide 30, Anion Gap 14.1, BUN 17, Creatinine 0.90, Estimated Creat Clear 114, Estimated GFR 85, Est GFR ( Amer) 102, Glucose 183 H, Calcium 9.0, Troponin I 0.02 12/27/19 14:27: Troponin I 0.01 Result diagrams: 12/27/19 11:05 12/27/19 11:05 Orders (Tests/Meds): ED MEDICATIONS Discontinued Medications Generic Name Dose Route Start Last Admin Trade Name Freq PRN Reason Stop Dose Admin Sodium Chloride 1,000 mls @ 999 mls/hr 12/27/19 11:40 12/27/19 11:40 Sod Chlor 0.9% 1000ml Bag IV 12/27/19 12:40 999 mls/hr .Q1H1M ONE Administration ORDERS Category Date Time Status Troponin I Q3H Lab 12/27/19 17:00 Ordered - CT Data CT Scan: Head, C-Spine, Chest Time Received: 13:[address] Reviewed: Yes: I have viewed the radiologist's interpretation Preliminary Findings: Normal/NAD - ECG Data Tracing #1 I reviewed this ECG and interpreted as documented below: Normal Sinus Rhythm: Yes - DAK[place] Score for Non-Stemi Age of Patient: 60-69 years old Heart Rate: 50-69 bpm Systolic Blood Pressure: 120-139 mmhg Serum Creatinine: <0.40 mg/dl CHF Kill[place] Class: I-No CHF Other Risk Factors: None Non-Stemi Risk Score: 96 Risk Stratification: 1-108 = Low Risk Chest Pain HPI - General Chief Complaint: Chest Pain Stated Complaint: chest pain Time Seen by Provider: 12/27/19 13:00 Source of Information: Patient - History of Present Illness MD complaint: chest pain
== END 2019-12-27 15:47 | disposition home or self-care (01) ==
PROVIDERS: Emergency Provider Family Medicine; PCP Emergency Medicine
DX: R07.89 Other chest pain (principal); E78.5 Hyperlipidemia, unspecified; I48.20 Chronic atrial fibrillation, unspecified; Z95.0 Presence of cardiac pacemaker; I10 Essential (primary) hypertension; I25.2 Old myocardial infarction; K21.9 Gastro-esophageal reflux disease without esophagitis; I25.10 Atherosclerotic heart disease of native coronary artery without angina pectoris; E05.90 Thyrotoxicosis, unspecified without thyrotoxic crisis or storm; Z90.09 Acquired absence of other part of head and neck; E11.65 Type 2 diabetes mellitus with hyperglycemia; F17.210 Nicotine dependence, cigarettes, uncomplicated; Z88.8 Allergy status to other drugs, medicaments and biological substances
CPT/HCPCS: 36415; 70450; 71045; 72125; 80048; 84484; 85025; 93005; 96365; 99283

== ENCOUNTER → 2019-12-28 12:55 | Outpatient (CLI) | payer MEDICARE, OTHER, SELFPAY ==
--- NOTE | 2019-12-28 12:55 | US_ITS ---
PROCEDURE: US THYROID CLINICAL INDICATION: hyperthyroid COMPARISON: No exams were available for comparison FINDINGS: Both thyroid glands are of normal size and echogenicity. The right thyroid gland measures 24 millimeters x 50 millimeters x 17 millimeters. There is a 13 millimeter x 14 millimeter X 11 millimeter complex nodule in the interpolar region. It is wider than tall and there are no microcalcifications. The left thyroid lobe measures 23 millimeters x 45 millimeters x 16 millimeters. There is a 14 millimeter X 9 millimeter complex nodule, wider than tall, in the interpolar region. There is a 9 millimeter X 10 millimeter X 6 millimeter solid nodule in the upper pole. The isthmus measures 2.8 millimeters. IMPRESSION: Bilateral TR 2 thyroid nodules Dictated by: Gamaliel Ramos 12/28/2019 14:05 Electronically signed by Gamaliel Ramos in [place] 12/28/2019 14:05
== END ==
PROVIDERS: PCP Emergency Medicine; Visit Provider Otolaryngology
DX: E05.90 Thyrotoxicosis, unspecified without thyrotoxic crisis or storm (principal)
CPT/HCPCS: 76536

== ENCOUNTER → 2020-06-28 08:20 | Outpatient (CLI) | payer MEDICARE, OTHER, SELFPAY ==
--- NOTE | 2020-06-28 08:21 | CA_ITS ---
APPROVED REPORT EXAM: Comprehensive 2D, Doppler, and color-flow Echocardiogram Nuts And Bolts Assembler: Allison Baum CRT Ht: 6 ft 0 in Wt: 251lbs BSA: 2.35 BP: 114/86 mmHg Indications: Chest Pain, COPD, Shortness of Breath, Diabetes, Obesity, Hyperlipidemia, Hypertension/HDD, AICD, known thrombus previously, CASSANDRA clip, AF, CAD, CM 2D Dimensions Aortic Root 3.42 cm LVOT 1.94 cm (M/F) 1.5-2.5 M-Mode Dimensions RVDd 4.09 cm (0.9-2.6) LA Diam 4.80 cm (1.9-4.0) LVDd 4.80 cm (3.5-5.7) Ao Diam 3.23 cm (2.0-3.7) LVDs 3.79 cm (3.5-5.7) IVSd 1.62 cm (0.6-1.1) PWd 0.97 cm (0.6-1.1) EF (Teich) 42.70% FS 21.00% EDV (Teich) 107.50 mL ESV (Teich) 61.60 mL Aortic Valve AO Peak GR. 3.00 mmHg Pulmonary Valve PV Peak Velocity 28.00 (50-150 cm/s) Tricuspid Valve TR P. Velocity 262.00 cm/s RAP Estimate 10.00 mmHg RVSP 37.40 mmHg Left Ventricle Technically very difficult study because of the patient factors and poor acoustic windows, a repeat study with Definity contrast is recommended. Left atrium is moderately enlarged, left ventricle is mildly dilated, severely reduced left ventricular systolic function, visually estimated ejection fraction approximately 25%, there is mild hypo to akinesis involving mid to distal septum, anterior, anterior apical and apical wall, possibility of apical thrombus cannot be excluded, a repeat study with contrast is recommended. Diastolic parameters are inconclusive. Right Ventricle Right atrium and right ventricle are moderately enlarged with normal contractility, there is an AICD lead seen in the right ventricle. Aortic Valve Aortic valve is minimally thickened and fibrosed. There is no aortic stenosis or aortic insufficiency. Mitral Valve Mitral valve leaflets are minimally thickened, there is mild mitral regurgitation Tricuspid Valve Tricuspid valve is grossly normal, there is mild tricuspid regurgitation, calculated right ventricular systolic pressure is 37 mmHg. Pulmonic Valve Pulmonic valve is poorly visualized. Great Vessels Aortic root is normal size. Pericardium No significant pericardial effusion noted. Conclusion 1. Technically very difficult study, repeat study with Definity contrast is recommended. 2. Biatrial enlargement, dilated left ventricle, severe reduced left ventricular systolic function, visually estimated ejection fraction 25% with multiple segmental wall motion abnormality described above, presence of apical thrombus cannot be excluded, repeat study with contrast is recommended. Diastolic parameters are inconclusive. 3. Moderately enlarged right ventricle with normal contractility. 4. Mild mitral and tricuspid regurgitation, calculated right ventricular systolic pressure 37 mmHg. 5. No significant pericardial effusion noted. Electronically signed by : Jesse Huitron, 06/28/2020 13:00:41
== END ==
PROVIDERS: PCP Emergency Medicine; Visit Provider Nurse Practitioner Family
DX: R06.02 Shortness of breath (principal)
CPT/HCPCS: 93306; 94060; 94618; 94726; 94729

== ENCOUNTER → 2020-07-18 07:13 | Outpatient (CLI) | payer MEDICARE, OTHER, SELFPAY ==
--- NOTE | 2020-07-18 | CA_ITS ---
APPROVED REPORT Exam: Pharmacologic Technologist: Lilly Daniel Ht: 6 ft 0 in Wt: 258 lbs BSA: 2.37 m2 HR: 63 bpm BP: 127/74 mmHg Indications: CAD Medical History Medications: Furosemide (LASIX),,,,, Aspirin,,,,, Pantoprazole,,,,, Atorvastatin,,,,, Albuterol,,,,, BisOPROLOL,,,,, Stress Test Details Test: LEXISCAN HR Resting HR: 48 bpm Max Heart Rate (APMHR): 155 bpm Max HR Achieved: 91 bpm Target HR (85% APMHR): 131 bpm % of APMHR: 58 Recovery HR: 58 bpm BP Resting BP: 127.0/74.0 mmHg Max BP: 127.0/74.0 mmHg Recovery BP: 106.0/72.0 mmHg ECG Clinical Exercise duration: 04:00 min Highest Stage Achieved: Stress ECG Conclusion Resting EKG: Demand pacemaker, Atrial fibrillation with PVCs vs aberrant beats, old anterior TN. Symptoms: Shortness of air, mild nausea, mild malaise. No chest pain. Arrhythmias/Ectopy: Some apparant atrial flutter with variable AV block. Occasional premature ventricular or aberrant beats. ST-T Changes: NS ST-T changes. Conclusion: Non-diagnostic lexiscan stress. Myoview images reported separately. Electronically signed by : Jesse Huitron, 07/19/2020 13:13:17
--- NOTE | 2020-07-18 07:13 | NM_ITS ---
APPROVED REPORT Exam: Nuclear Stress Test Indication: CAD, D.M, HYPERLIPIDEMIA, FM HX., C.P., SOB Patient Location: Outpatient Stress Tech: Lilly Daniel SC Tech:Debbie Miller, ARRT, RT (R)(N) Ht: 6 ft 0 in Wt: 242 lbs HR: 63 bpm BP: 127/74 mmHg BSA: 2.31 m2 History: CAD, D.M, HYPERLIPIDEMIA, FM HX., C.P., SOB Procedure: Patient received a 0.4 mg of intravenous Lexiscan, resting heart rate 63 bpm, resting blood pressure 127/74 mmHg, with Lexiscan maximum heart rate achived was 81 bpm which is Less than 85 % of the maximum predicted heart rate and blood pressure was 109/65 mmHg. With Lexiscan, patient denied any complaint of chest pain. Electrocardiogram Resting electrocardiogram showed atrial fibrillation anterior infarct age-indeterminate, with Lexiscan there is less than 1.[address] segment depression noted from the baseline EKG. The EKG portion of the Lexiscan is nondiagnostic. Cardiac Stress and Resting SPECT Images: Cardiac Stress and Resting SPECT images were obtained using technetium 99m Myoview 31.8 mCi stress and 10.93 mCi at rest. Gated SPECT for analysis of segmental wall motion and calculation of the ejection fraction also done. Prone images were also obtained. Cardiac stress and resting SPECT images show large sized area of severely reduced tracer activity involving the anterior, anterior apical, apex, anteroseptal and inferior apical wall in a fixed pattern consistent with extensive area of myocardial scarring without significant brian-infarct ischemia. Computer derived ejection fraction is 35% with marked hypokinesis involving the anterior, anterior apical, apex, anteroseptal and inferior apical wall. Left ventricle is dilated both stress and rest, right ventricle is mildly enlarged with normal contractility. Conclusion: 1. The EKG portion of the Lexiscan is nondiagnostic. 2. Scintigraphic evidence of extensive myocardial scarring involving the anterior, anterior apical, apex, anteroseptal and inferior apical wall. There is no significant brian-infarct ischemia. Computer derived ejection fraction is 35% with segmental wall motion abnormality described above, left ventricle is dilated with stress and rest, right ventricle is mildly enlarged with normal contractility. 3. Abnormal Lexiscan Myoview study. Electronically signed by : Jesse Huitron, 07/19/2020 13:18:00
--- NOTE | 2020-07-18 09:21 | CA_ITS ---
APPROVED REPORT EXAM: Limited 2D Echocardiogram Sports Therapist: Rosalina Jesus RVT Ht: 6 ft 0 in Wt: 242lbs BSA: 2.31 BP: 134/78 mmHg Indications: DEFINITY ONLY,PREVIOUS THROMBUS,LLA CLIP,A-FIB,CAD,CM,EF-25% Echo Enhancing Agent Indication: Rule out thrombus Agent(s) / Amount(s) Used: Definity cc Conclusion 1. Definity contrast study was performed to evaluate left ventricular systolic function as well as to evaluate for left ventricular thrombus. 2. Definity contrast study suboptimal, visually estimated ejection fraction is approximately 30%, there is marked hypokinesis involving mid to distal septum, anterior, anterior apical and apical wall. 3. There is a filling defect seen in the left ventricular apex which likely represents left ventricular apical thrombus. Electronically signed by : Jesse Huitron, 07/19/2020 14:48:48
== END ==
PROVIDERS: PCP Emergency Medicine; Visit Provider Nurse Practitioner Family
DX: E11.8 Type 2 diabetes mellitus with unspecified complications (principal); E66.09 Other obesity due to excess calories; E66.9 Obesity, unspecified; E78.2 Mixed hyperlipidemia; I11.0 Hypertensive heart disease with heart failure; I25.10 Atherosclerotic heart disease of native coronary artery without angina pectoris; I42.0 Dilated cardiomyopathy; I48.0 Paroxysmal atrial fibrillation; I50.20 Unspecified systolic (congestive) heart failure; I51.3 Intracardiac thrombosis, not elsewhere classified; J44.9 Chronic obstructive pulmonary disease, unspecified; R06.02 Shortness of breath; Z95.810 Presence of automatic (implantable) cardiac defibrillator; Z98.890 Other specified postprocedural states; Z68.33 Body mass index [BMI] 33.0-33.9, adult
CPT/HCPCS: 78452; 93017; 93308; A9502; J2785; Q9957

== ENCOUNTER → 2020-07-20 09:55 | Outpatient (CLI) | payer MEDICARE, OTHER, SELFPAY ==
[2020-07-20 10:00] LABS: Adenovirus F 40/41, stool Not Detected (NotDetected); Astrovirus Not Detected (NotDetected); Campylobacter Not Detected (NotDetected); Clostridium Difficile A/B, PCR Not Detected (NotDetected); Cryptosporidium Not Detected (NotDetected); Cyclospora Cayetanesis Not Detected (NotDetected); Entamoeba histolytica Not Detected (NotDetected); Enteroaggregative E coli Not Detected (NotDetected); Enteropathogenic E coli Not Detected (NotDetected); Enterotoxigenic E coli Not Detected (NotDetected); Giardia lamblia Not Detected (NotDetected); Norovirus Not Detected (NotDetected); Plesimonas Shigalloides, PCR Not Detected (NotDetected); Rotavirus A Not Detected (NotDetected); Salmonella, PCR Not Detected (NotDetected); Sapovirus Not Detected (NotDetected); Shiga-like toxin E coli Not Detected (NotDetected); Shigella Enterovasive E coli Not Detected (NotDetected); Vibrio Cholerae Not Detected (NotDetected); Vibrio, PCR Not Detected (NotDetected); Yersinia Entercolitica, PCR Not Detected (NotDetected)
[2020-07-20 10:33] LABS: Occult Blood,Stool Negative (Negative)
[2020-07-20 10:43] LABS: Basophils % 0.5 % (0.1-2.0); Eosinophils # 0.3 K/mm3 (0.0-0.4); Eosinophils % 3.3 % (0.1-12.0); Hematocrit 46.1 % (42.0-52.0); Hemoglobin 14.9 g/dL (14.1-18.0); Lymphocytes # 1.8 K/mm3 (0.7-4.5); Lymphocytes % 23.6 % (10-50); Mean Corpuscular HGB Conc 32.2 g/dL (31.8-35.4); Mean Corpuscular Hemoglobin 29.1 pg (27.0-31.2); Mean Corpuscular Volume 90.4 fl (80-94); Mean Platelet Volume 9.5 fl (7.4-10.4); Monocytes # 0.8 K/mm3 (0.1-1.0); Monocytes % 10.2 % (1.7-9.3); Neutrophils # 4.8 K/mm3 (1.8-7.8); Neutrophils % 62.3 % (37.0-80.0); Platelet Count 77 K/mm3 (142-424); Red Cell Distribution Width 15.4 % (11.5-17.5); White Blood Count 7.7 K/mm3 (4.8-10.8)
[2020-07-20 11:09] LABS: Chloride 106 mmol/L (98-107); Sodium 139 mmol/L (136-145)
[2020-07-20 11:12] LABS: Alanine Aminotransferase 23 U/L (12-78); Albumin Level 3.8 g/dl (3.5-5.0); Albumin/Globulin Ratio 1.2 (1.1-1.8); Alkaline Phosphatase 215 U/L (38-126); Aspartate Amino Transferase 39 U/L (17-59); Bilirubin,Total 1.9 mg/dl (0.2-1.3); Blood Urea Nitrogen 16 mg/dl (9-20); Calcium 9.3 mg/dl (8.4-10.2); Carbon Dioxide 25 mmol/L (22.0-30.0); Estimated Glomerular Filt Rate 135 ml/min (>60); GFR (African American) 164 ML/MIN (>60); Globulin 3.2 g/dL (1.3-3.2); Glucose 209 mg/dl (74-100); Lipase 91 U/L (23-300)
== END ==
PROVIDERS: Visit Provider Family Medicine
DX: R19.7 Diarrhea, unspecified
CPT/HCPCS: 36415; 80053; 82272; 83690; 85025; 87045; 87506; G0328

== ENCOUNTER → 2020-07-30 13:37 | Outpatient (CLI) | payer MEDICARE, OTHER, SELFPAY ==
--- NOTE | 2020-07-30 13:38 | CT_ITS ---
PROCEDURE: CT LUNG SCREENING CLINICAL INDICATION: LDCT Former smoker Quit 1 year ago 40 pack year smoking history chf No prior COMPARISON: CT CHESTWO CT chest wo con from 02/01/2019 TECHNIQUE: The exam was performed on a GE Light Speed [address] scanner using 2.90 mGy CTDI. A low dose helical CT CHEST was performed on a multi-detector scanner. All CT scans at the facility use one or more dose reduction, viz: automated exposure control, ma/kV adjustment per patient size (including targeted exams where dose is matched to indication, i.e. head), or iterative reconstruction technique. The LDCT was performed in a facility that meets the criteria for the screening program. Data regarding this exam was submitted to ACR which is an approved registry. The order for this exam indicates that it came as a result of a lung cancer screening counseling shard decision-making visit that included all the elements required of such a visit including smoking cessation. The radiologist interpreting this exam meets the CMS criteria for the LDCT lung cancer screening program. The exam is reported using the Lung-RADS classification scale and reported to the ACR registry. NOTE: This study was performed for the specific purposes of lung cancer screening and is not an alternative to diagnostic chest CT. RADIATION DOSE: CTDI vol(CT dose Index-volume) = 2.90mG DLP (Dose Length Product) = 106.03 mGcm FINDINGS: Artifact is present from pacemaker device. Paraseptal emphysematous changes with COPD. Calcified granuloma right lower lobe. No suspicious pulmonary nodules demonstrated. Trace right-sided pleural effusion. OTHER FINDINGS: There are scattered mildly prominent mediastinal lymph nodes some of which contain calcium. Coronary artery calcifications are present and there has been prior left atrial appendage clipping. There is a small amount of perihepatic and perisplenic fluid. IMPRESSION: Lung-RADS Category 1 Negative Follow-up: Continue annual screening with LDCT in 12 months Trace right pleural effusion with mild amount of perihepatic and perisplenic fluid Dictated by: Marv Duran MD 08/06/2020 06:52 Marv Duran MD in [place] 08/06/2020 06:52
== END ==
PROVIDERS: PCP Emergency Medicine; Visit Provider Internal Medicine Pulmonary Disease
DX: Z87.891 Personal history of nicotine dependence (principal); Z12.2 Encounter for screening for malignant neoplasm of respiratory organs
CPT/HCPCS: 71271

== ENCOUNTER → 2020-08-03 08:19 | Outpatient (CLI) | payer MEDICARE, OTHER, SELFPAY ==
--- NOTE | 2020-08-03 08:20 | CT_ITS ---
PROCEDURE: CT ABDOMEN PELVIS WO CON CLINICAL INDICATION: Abd pain with diarrhea x 5weeks Prior 01/31/18 COMPARISON: CT ABDPELW CT abdomen pelvis w con from 01/31/2018 TECHNIQUE: Axial images obtained with sagittal and coronal reformats. All CT scans at the facility use one or more dose reduction, viz: automated exposure control, ma/kV adjustment per patient size (including targeted exams where dose is matched to indication, i.e. head), or iterative reconstruction technique. FINDINGS: LOWER THORAX: There is trace right-sided effusion. Artifact is present from an RV pacemaker. ABDOMEN & PELVIS: There is some minimal nodular contour of the liver surface which may be seen with cirrhosis. There is a small amount of perihepatic and perisplenic fluid. No focal liver lesion is demonstrated on this unenhanced exam. The spleen, adrenal glands, and pancreas and gallbladder and kidneys all have an unremarkable unenhanced CT appearance. There is some mild haziness of the peritoneal fat nonspecific but may be seen with ascites/cirrhosis/portal hypertension. No intestinal obstruction or free air. No evidence of appendicitis. Colonic diverticulosis is present but no evidence of diverticulitis. There is a small amount fluid in the pelvis. There are small bilateral inguinal hernias containing fat and a small umbilical hernia containing fat. No acute bony findings. IMPRESSION: Nodular contour of the liver suggesting cirrhosis with small amount of ascites. Colonic diverticulosis without diverticulitis. Dictated by: Mrav Duran MD 08/04/2020 10:38 Marv Duran MD in [place] 08/04/2020 10:38
== END ==
PROVIDERS: PCP Emergency Medicine; Visit Provider Family Medicine
DX: R10.9 Unspecified abdominal pain (principal); R19.7 Diarrhea, unspecified
CPT/HCPCS: 74176

== ENCOUNTER 2020-10-17 09:04 | Emergency (ER) | payer MEDICARE, OTHER, SELFPAY ==
[2020-10-17 09:05] VITALS: BP 129/65; PULSE 102; RESP 18; TEMP 37.3; O2SAT 98; BMI 33.3
--- NOTE | 2020-10-17 09:14 | PC.NURSE ---
lab at bedside
--- NOTE | 2020-10-17 09:19 | PC.NURSE ---
Calling [facility] for records from EGD done on previous date.
--- NOTE | 2020-10-17 09:23 | HMH.EDGENADL ---
ED Disposition Clinical Impression: PUD (peptic ulcer disease) GI bleed Qualifiers: GI bleed type/associated pathology: unspecified gastrointestinal hemorrhage type Qualified Code(s): K92.2 - Gastrointestinal hemorrhage, unspecified Disposition: Home, Self-Care Condition on Discharge: Good Referrals: David Domingo MD [Primary Care Provider] - 3 days CaseAnirudh [Referring] - 10/18/20 Time of Disposition: 10:18 - Critical Care Critical Care Time: No Attestation: On 10/17/20, the high probability of a clinically significant, sudden or life threatening deterioration of the following system(s) required my full and direct attention, intervention and personal management. The time I documented below is in addition to time spent performing reported procedures but includes the following listed in this critical care notation. Medical Decision Making - Medical Records Medical records reviewed: Yes: I reviewed the patient's medical records. - Sherman Inquiry Pt receiving controlled substance: No Vital Signs: 10/17/20 09:05 Temperature 99.1 F Temperature Source Oral Pulse Rate [Left Radial] 102 H Respiratory Rate 18 Blood Pressure [Right Arm] 129/65 Blood Pressure Mean [Right Arm] 86 Blood Pressure Source [Right Arm] Automatic Cuff Blood Pressure Position [Right Arm] Sitting 02 Sat by Pulse Oximetry 98 Oxygen Delivery Method Room Air - Lab Data Lab results reviewed: Yes: I reviewed the patient's lab results. Lab Results 10/17/20 09:17: WBC 11.0 H, RBC 3.92 L, Hgb 11.2 L, Hct 35.0 L, MCV 89.3, MCH 28.5, MCHC 31.8, RDW 16.2, Plt Count 152, MPV 8.2, Neut % (Auto) 71.4, Lymph % (Auto) 19.5, [place] % (Auto) 6.9, Eos % (Auto) 1.8, Baso % (Auto) 0.5, Neut # (Auto) 7.8, Lymph # (Auto) 2.1, [place] # (Auto) 0.8, Eos # (Auto) 0.2, Baso # (Auto) 0.1 10/17/20 09:17: Sodium 142, Potassium 3.7, Chloride 109 H, Carbon Dioxide 25, Anion Gap 11.7, BUN 25 H, Creatinine 0.50 L, Estimated Creat Clear 115, Estimated GFR 166, Est GFR ( Amer) 201, Glucose 106 H, Calcium 8.8, Total Bilirubin 3.0 H, AST 40, ALT 23, Alkaline Phosphatase 150 H, Total Protein 6.1 L, Albumin 3.1 L, Globulin 3.0, Albumin/Globulin Ratio 1.0 L 10/17/20 09:55: Stool Occult Blood Positive A Result diagrams: 10/17/20 09:17 10/17/20 09:17 Orders (Tests/Meds): ORDERS Category Date Time Status Type and Screen Stat BBK 10/17/20 09:17 Results Medical Decision Narrative: 65yo M evaluated with concern for GI bleed. Patient has known peptic ulcer disease. Patient is in no acute distress on initial evaluation. His vital signs are unremarkable. Hemoccult was performed at bedside and is positive. Patient is very medically noncompliant. Reports has not been taking his medications as directed. I was able to contact the patient's sheriff officer in [place] who stated the patient could receive a dose of IV Protonix and they would call him to establish a follow-up appointment in the office tomorrow. General Adult HPI - General Stated complaint: blood in stool Time Seen by Provider: 10/17/20 09:23 Mode of Arrival: Ambulatory Source of Information: Patient - History of Present Illness HPI narrative: 65yo M presents to the emergency department secondary to mild abdominal pain with p.o. intake and black tarry stools. Patient also endorses occasional coffee-ground emesis. Patient has known peptic ulcer disease. He underwent upper endoscopy and colonoscopy on Thursday in [place]. Patient states his GI bleeding symptoms began yesterday evening. He denies any lightheadedness or shortness of breath. Patient states he has quit smoking. - Related Data Previous Rx's Medication Instructions Recorded aspirin 81 mg tablet,delayed 81 mg PO DAILY #90 tab 01/03/19 release atorvastatin 10 mg tablet 10 mg PO QHS #90 tab 11/23/19 furosemide 20 mg tablet 20 mg PO DAILY #30 tab 02/15/20 bisoprolol fumarate 10 mg tablet 10 mg PO DAILY #30 tab 05/14/20 al
[2020-10-17 09:42] LABS: Chloride 109 mmol/L (98-107); Sodium 142 mmol/L (136-145)
[2020-10-17 09:43] LABS: Potassium 3.7 mmoL/L (3.5-5.1)
[2020-10-17 09:45] LABS: Alanine Aminotransferase 23 U/L (12-78); Albumin Level 3.1 g/dl (3.5-5.0); Alkaline Phosphatase 150 U/L (38-126); Anion Gap 11.7 mEq/L (5-15); Aspartate Amino Transferase 40 U/L (17-59); Blood Urea Nitrogen 25 mg/dl (9-20); Calcium 8.8 mg/dl (8.4-10.2); Carbon Dioxide 25 mmol/L (22.0-30.0); Creatinine Clearance Estimated 115 mL/min (50-200); Estimated Glomerular Filt Rate 166 ml/min (>60); GFR (African American) 201 ML/MIN (>60); Glucose 106 mg/dl (74-100); Total Protein,Serum 6.1 g/dl (6.3-8.2)
[2020-10-17 09:48] LABS: Basophils # 0.1 K/mm3 (0-0.2); Basophils % 0.5 % (0.1-2.0); Eosinophils # 0.2 K/mm3 (0.0-0.4); Eosinophils % 1.8 % (0.1-12.0); Hemoglobin 11.2 g/dL (14.1-18.0); Lymphocytes # 2.1 K/mm3 (0.7-4.5); Lymphocytes % 19.5 % (10-50); Mean Corpuscular HGB Conc 31.8 g/dL (31.8-35.4); Mean Corpuscular Hemoglobin 28.5 pg (27.0-31.2); Mean Corpuscular Volume 89.3 fl (80-94); Mean Platelet Volume 8.2 fl (7.4-10.4); Monocytes # 0.8 K/mm3 (0.1-1.0); Monocytes % 6.9 % (1.7-9.3); Neutrophils # 7.8 K/mm3 (1.8-7.8); Neutrophils % 71.4 % (37.0-80.0); Platelet Count 152 K/mm3 (142-424); Red Blood Count 3.92 M/mm3 (4.60-6.20); Red Cell Distribution Width 16.2 % (11.5-17.5)
[2020-10-17 10:00] LABS: Occult Blood,Stool Positive (Negative)
[2020-10-17 10:32] VITALS: BP 112/70; PULSE 108; RESP 16; TEMP 37.3; O2SAT 98
== END 2020-10-17 10:35 | disposition home or self-care (01) ==
PROVIDERS: Emergency Provider Family Medicine; PCP Emergency Medicine
DX: K27.9 Peptic ulcer, site unspecified, unspecified as acute or chronic, without hemorrhage or perforation (principal); K92.2 Gastrointestinal hemorrhage, unspecified; I48.91 Unspecified atrial fibrillation; I50.9 Heart failure, unspecified; E11.9 Type 2 diabetes mellitus without complications; I25.2 Old myocardial infarction; K21.9 Gastro-esophageal reflux disease without esophagitis; E78.5 Hyperlipidemia, unspecified; I10 Essential (primary) hypertension; Z95.0 Presence of cardiac pacemaker; Z87.891 Personal history of nicotine dependence; Z79.899 Other long term (current) drug therapy
CPT/HCPCS: 80053; 82272; 85025; 86850; 96374; 99282; G0328

== ENCOUNTER → 2020-10-22 10:07 | Outpatient (CLI) | payer MEDICARE, OTHER, SELFPAY ==
[2020-10-22 11:08] LABS: Hematocrit 29.9 % (42.0-52.0); Hemoglobin 9.6 g/dL (14.1-18.0); Mean Corpuscular HGB Conc 32.2 g/dL (31.8-35.4); Mean Corpuscular Hemoglobin 29.3 pg (27.0-31.2); Platelet Count 162 K/mm3 (142-424); Red Blood Count 3.29 M/mm3 (4.60-6.20); White Blood Count 6.5 K/mm3 (4.8-10.8)
[2020-10-22 11:44] LABS: Chloride 103 mmol/L (98-107); Potassium 3.3 mmoL/L (3.5-5.1); Sodium 137 mmol/L (136-145)
[2020-10-22 11:46] LABS: Alanine Aminotransferase 15 U/L (12-78); Alkaline Phosphatase 149 U/L (38-126); Aspartate Amino Transferase 30 U/L (17-59); Bilirubin,Total 1.7 mg/dl (0.2-1.3); Blood Urea Nitrogen 14 mg/dl (9-20); Estimated Glomerular Filt Rate 135 ml/min (>60); GFR (African American) 163 ML/MIN (>60)
[2020-10-22 11:47] LABS: Albumin Level 2.9 g/dl (3.5-5.0); Anion Gap 9.3 mEq/L (5-15); Calcium 8.5 mg/dl (8.4-10.2); Carbon Dioxide 28 mmol/L (22.0-30.0); Globulin 2.9 g/dL (1.3-3.2); Glucose 154 mg/dl (74-100); Iron 37 ug/dL (49-181); Total Protein,Serum 5.8 g/dl (6.3-8.2)
[2020-10-22 11:56] LABS: Total Iron Binding Capacity 242 ug/dL (261-462)
[2020-10-22 12:22] LABS: Ferritin 313 ng/ml (17.9-464)
[2020-10-22 14:45] LABS: Prothrombin Time 15.1 seconds (10.1-12.5)
[2020-10-23 08:16] LABS: Hep B Core Ab, Total Negative (Negative); Hepatitis B Surface Antigen Negative (Negative)
[2020-10-23 12:33] LABS: AFP, Tumor Marker <0.9 ng/mL (0.0-8.3); Hep A Ab, Total Negative (Negative); Hepatitis B Surf Ab Quant <3.1 mIU/mL (Immunity>9.9)
[2020-10-23 17:06] LABS: Actin (Smooth Muscle) Antibody 6 Units (0-19); Immunoglobulin G, Qn 1118 mg/dL (603-1613); Liver-Kidney Microsomal Ab <1.0 Units (0.0-20.0); Mitochondrial (M2) Antibody <20.0 Units (0.0-20.0)
[2020-10-26 14:12] LABS: Alpha-1-Antitrypsin 232 mg/dL (101-187)
[2020-11-02 16:22] LABS: Antinuclear Antibodies (ANA) NEGATIVE
== END ==
PROVIDERS: Visit Provider Physician Assistant
DX: R10.30 Lower abdominal pain, unspecified (principal); K74.60 Unspecified cirrhosis of liver
CPT/HCPCS: 36415; 80053; 81256; 82103; 82104; 82105; 82728; 82784; 83540; 83550; 85014; 85018; 85048; 85049; 85610; 86038; 86225; 86235; 86255; 86256; 86376; 86704; 86706; 86708; 87340

== ENCOUNTER → 2020-10-25 15:38 | Outpatient (CLI) | payer MEDICARE, OTHER, SELFPAY ==
--- NOTE | 2020-10-25 15:40 | CA_ITS ---
APPROVED REPORT Bilateral Lower Extremity Venous Study for Colon Therapist: JANELL/REBEKAH Indications Shortness of breath History of Smoking CAD pain and swelling Risk Factors Cardiac Disease Current Smoker Vein Imaging CFV (L): compressive, spontaneous, phasic, augmentation FEM (L): compressive, spontaneous, phasic, augmentation POP (L): compressive, spontaneous, phasic, augmentation DFV (L): compressive, spontaneous, phasic, augmentation PTV (L): compressive, spontaneous, phasic, augmentation GSV (L): compressive, spontaneous, phasic, augmentation SSV (L): compressive, spontaneous, phasic, augmentation Peroneals (L):compressive, spontaneous, phasic, augmentation GAS (L): compressive, spontaneous, phasic, augmentation Findings Color flow duplex demonstrates no evidence of DVT of the following left lower extremity Veins:, Femoral Vein, Popliteal Vein, Posterior Tibial Veins, Peroneal Veins. No evidence of DVT or superficial thrombophlebitis in the veins scanned of the left lower extremity. Conclusion Color flow duplex demonstrates no evidence of DVT of the following left lower extremity Veins:, Femoral Vein, Popliteal Vein, Posterior Tibial Veins, Peroneal Veins. No evidence of DVT or superficial thrombophlebitis in the veins scanned of the left lower extremity. Electronically signed by : Marv Duran MD 10/25/2020 16:50:36
== END ==
PROVIDERS: PCP Emergency Medicine; Visit Provider Family Medicine
DX: R60.0 Localized edema (principal)
CPT/HCPCS: 93971

== ENCOUNTER → 2020-10-30 08:56 | Outpatient (CLI) | payer MEDICARE, OTHER, SELFPAY | PROVIDERS: PCP Emergency Medicine; Visit Provider Urology | DX: Z20.822 Contact with and (suspected) exposure to COVID-19 (principal) | CPT/HCPCS: U0003 ==

== ENCOUNTER 2020-10-31 08:38 | Day surgery (SDC) | payer MEDICARE, OTHER, SELFPAY ==
[2020-10-31] VITALS (13 sets, daily range): BP systolic 97–120; BP diastolic 57–77; PULSE 60–80; RESP 16–20; TEMP 36.7; O2SAT 93–96; BMI 33.6
--- NOTE | 2020-10-31 07:08 | IR_ITS ---
APPROVED REPORT Patient Location: Outpatient [place] Attendant: ERNIE Lozano RT (R) PROCEDURES Right heart catheterization Left heart catheterization Left ventriculogram Selective coronary angiogram INDICATION High risk abnormal Myoview, Systolic congestive heart failure ejection fraction 35%, Pulmonary hypertension, Informed consent was obtained prior to the procedure. COMPLICATIONS None Estimated Blood Loss: Less than 10 mls TECHNIQUE One percent lidocaine used to anesthetize the right anterior aspect of the wrist. The right radial artery was accessed via the Seldinger technique. A 6 [place] sheath was placed in the right radial artery. 2.5 mg of verapamil, 800 mcg of nitroglycerin, 1mg Lidocaine and 5000 U Heparin were given through the arterial sheath. The trap catheter was also used to perform left heart catheterization, left ventriculogram and selective coronary angiogram. 1% lidocaine was used anesthetize the right anterior aspect of the neck and the right internal jugular vein was accessed via the Salinger technique. A 7 [place] sheath was placed in the right internal jugular vein. A [place] catheter was then floated into the pulmonary artery and right heart catheterization was performed. At the end of the procedure the apparatus was removed the patient was transferred to the postop holding in stable addition for sheath removal ANGIOGRAPHIC RESULTS The left main artery Normal The left anterior descending artery Has stents in the proximal segment which is widely patent free of in-stent restenosis. Transitioning tapers into a 30% mid LAD stenosis. ESTELLA II flow was present down the LAD The circumflex artery Is a nondominant yet still large vessel with mild luminal irregularities nothing greater than 10% The right coronary artery Is a dominant vessel with mild mid vessel 10% luminal irregularities The VIVEROS ventriculogram reveals Not performed The left ventricular end-diastolic pressure Not measured Right atrial pressure 30 mmHg Pulmonary artery pressure 60/32 mmHg Pulmonary occlusion pressure 28 mmHg Right atrial saturation 62% Pulmonary artery saturation 65% IMPRESSION Adequate coronary artery revascularization as described above Severe pulmonary hypertension Severely elevated intracardial pulmonary filling pressures consistent with biventricular heart failure PLAN 1. Patient requires additional diuretics 2. Medical management for coronary disease 3. If QRS is widened greater than 120 ms consider cardiac resynchronization therapy Electronically signed by : Santana Beyer, 10/31/2020 12:36:45
[2020-10-31 09:49] LABS: Basophils # 0.1 K/mm3 (0-0.2); Basophils % 0.9 % (0.1-2.0); Chloride 101 mmol/L (98-107); Eosinophils # 0.4 K/mm3 (0.0-0.4); Hematocrit 33.3 % (42.0-52.0); Hemoglobin 10.4 g/dL (14.1-18.0); Lymphocytes # 1.4 K/mm3 (0.7-4.5); Lymphocytes % 15.6 % (10-50); Mean Corpuscular HGB Conc 31.2 g/dL (31.8-35.4); Mean Corpuscular Hemoglobin 28.7 pg (27.0-31.2); Mean Corpuscular Volume 92.2 fl (80-94); Mean Platelet Volume 8.1 fl (7.4-10.4); Monocytes # 0.7 K/mm3 (0.1-1.0); Monocytes % 7.6 % (1.7-9.3); Neutrophils # 6.2 K/mm3 (1.8-7.8); Neutrophils % 70.9 % (37.0-80.0); Platelet Count 238 K/mm3 (142-424); Potassium 3.3 mmoL/L (3.5-5.1); Red Blood Count 3.62 M/mm3 (4.60-6.20); Red Cell Distribution Width 17.1 % (11.5-17.5); Sodium 136 mmol/L (136-145); White Blood Count 8.7 K/mm3 (4.8-10.8)
[2020-10-31 09:52] LABS: Anion Gap 10.3 mEq/L (5-15); Blood Urea Nitrogen 14 mg/dl (9-20); Carbon Dioxide 28 mmol/L (22.0-30.0); Creatinine Clearance Estimated 116 mL/min (50-200); Estimated Glomerular Filt Rate 135 ml/min (>60); GFR (African American) 163 ML/MIN (>60)
[2020-10-31 09:53] LABS: Calcium 8.5 mg/dl (8.4-10.2); Glucose 111 mg/dl (74-100)
[2020-10-31 15:03] LABS: CATHL Arterial O2 SAT 65 % (90-100); CATHL Venous O2 SAT 62 % (75-80)
== END 2020-10-31 15:14 | disposition home or self-care (01) ==
LOC: CATHLAB 08:40
PROVIDERS: PCP Emergency Medicine; Visit Provider Internal Medicine
DX: I25.118 Atherosclerotic heart disease of native coronary artery with other forms of angina pectoris (principal); I11.0 Hypertensive heart disease with heart failure; I50.20 Unspecified systolic (congestive) heart failure; R06.00 Dyspnea, unspecified; R94.30 Abnormal result of cardiovascular function study, unspecified; Z95.810 Presence of automatic (implantable) cardiac defibrillator; Z98.890 Other specified postprocedural states; E78.2 Mixed hyperlipidemia; I27.20 Pulmonary hypertension, unspecified; I42.0 Dilated cardiomyopathy; R42 Dizziness and giddiness; E11.9 Type 2 diabetes mellitus without complications; J44.9 Chronic obstructive pulmonary disease, unspecified; I48.20 Chronic atrial fibrillation, unspecified; I42.9 Cardiomyopathy, unspecified; F17.210 Nicotine dependence, cigarettes, uncomplicated; Z82.49 Family history of ischemic heart disease and other diseases of the circulatory system; Z88.8 Allergy status to other drugs, medicaments and biological substances
CPT/HCPCS: 80048; 82810; 85025; 93460; 99152; C1725; C1760; C1769; C1894; J1644; Q9967

== ENCOUNTER → 2020-11-07 14:48 | Outpatient (CLI) | payer MEDICARE, OTHER, SELFPAY ==
[2020-11-07 15:18] LABS: Basophils # 0.1 K/mm3 (0-0.2); Basophils % 1.1 % (0.1-2.0); Eosinophils # 0.5 K/mm3 (0.0-0.4); Eosinophils % 5.2 % (0.1-12.0); Lymphocytes # 1.4 K/mm3 (0.7-4.5); Mean Corpuscular HGB Conc 30.6 g/dL (31.8-35.4); Mean Corpuscular Volume 91.3 fl (80-94); Monocytes # 0.8 K/mm3 (0.1-1.0); Monocytes % 8.8 % (1.7-9.3); Neutrophils # 6.1 K/mm3 (1.8-7.8); Neutrophils % 68.9 % (37.0-80.0); Platelet Count 219 K/mm3 (142-424); Red Blood Count 3.94 M/mm3 (4.60-6.20); Red Cell Distribution Width 16.4 % (11.5-17.5); White Blood Count 8.8 K/mm3 (4.8-10.8)
[2020-11-07 15:46] LABS: Blood Urea Nitrogen 10 mg/dl (9-20); Calcium 8.8 mg/dl (8.4-10.2); Carbon Dioxide 34 mmol/L (22.0-30.0); Chloride 100 mmol/L (98-107); Estimated Glomerular Filt Rate 97 ml/min (>60); GFR (African American) 117 ML/MIN (>60); Glucose 101 mg/dl (74-100); Sodium 138 mmol/L (136-145)
== END ==
PROVIDERS: Urology; Visit Provider Nurse Practitioner Family
DX: R06.00 Dyspnea, unspecified; R94.30 Abnormal result of cardiovascular function study, unspecified; E66.9 Obesity, unspecified; E78.5 Hyperlipidemia, unspecified; I11.9 Hypertensive heart disease without heart failure; I27.20 Pulmonary hypertension, unspecified; I42.9 Cardiomyopathy, unspecified; J44.9 Chronic obstructive pulmonary disease, unspecified; R10.9 Unspecified abdominal pain; R60.0 Localized edema; Z98.890 Other specified postprocedural states; I48.91 Unspecified atrial fibrillation; I50.20 Unspecified systolic (congestive) heart failure; Z95.810 Presence of automatic (implantable) cardiac defibrillator
CPT/HCPCS: 36415; 80048; 85025

== ENCOUNTER → 2020-11-30 13:54 | Outpatient (CLI) | payer MEDICARE, OTHER, SELFPAY | PROVIDERS: PCP Emergency Medicine; Visit Provider Nurse Practitioner Family | DX: G47.33 Obstructive sleep apnea (adult) (pediatric) (principal) | CPT/HCPCS: G0399 ==

== ENCOUNTER → 2020-12-18 09:47 | Outpatient (CLI) | payer MEDICARE, OTHER, SELFPAY ==
[2020-12-18 10:50] LABS: Basophils # 0.1 K/mm3 (0-0.2); Basophils % 1.1 % (0.1-2.0); Eosinophils # 0.4 K/mm3 (0.0-0.4); Eosinophils % 5.3 % (0.1-12.0); Hematocrit 39.4 % (42.0-52.0); Hemoglobin 12.5 g/dL (14.1-18.0); Lymphocytes # 1.5 K/mm3 (0.7-4.5); Lymphocytes % 21.6 % (10-50); Mean Corpuscular HGB Conc 31.6 g/dL (31.8-35.4); Mean Corpuscular Hemoglobin 27.5 pg (27.0-31.2); Mean Platelet Volume 8.8 fl (7.4-10.4); Monocytes # 0.8 K/mm3 (0.1-1.0); Neutrophils # 4.2 K/mm3 (1.8-7.8); Neutrophils % 61.1 % (37.0-80.0); Platelet Count 153 K/mm3 (142-424); Red Blood Count 4.53 M/mm3 (4.60-6.20); Red Cell Distribution Width 15.5 % (11.5-17.5); White Blood Count 6.9 K/mm3 (4.8-10.8)
[2020-12-18 11:46] LABS: Alanine Aminotransferase 14 U/L (12-78); Albumin/Globulin Ratio 1.1 (1.1-1.8); Alkaline Phosphatase 182 U/L (38-126); Anion Gap 14.2 mEq/L (5-15); Aspartate Amino Transferase 28 U/L (17-59); Bilirubin,Total 1.6 mg/dl (0.2-1.3); Blood Urea Nitrogen 17 mg/dl (9-20); Calcium 9.3 mg/dl (8.4-10.2); Carbon Dioxide 22 mmol/L (22.0-30.0); Chloride 106 mmol/L (98-107); Chol/HDL Ratio 3.9 (1-3.5); Cholesterol 117 mg/dl (140-200); Estimated Glomerular Filt Rate 135 ml/min (>60); GFR (African American) 163 ML/MIN (>60); Globulin 3.6 g/dL (1.3-3.2); Glucose 108 mg/dl (74-100); HDL Cholesterol 30 mg/dl (40-60); Potassium 4.2 mmoL/L (3.5-5.1); Sodium 138 mmol/L (136-145); Total Protein,Serum 7.6 g/dl (6.3-8.2); Triglycerides 54 mg/dl (30-150); VLDL Cholesterol 11 mg/dL (0-40)
[2020-12-18 11:57] LABS: Direct LDL Cholesterol 72.24 mg/dL (100-129)
[2020-12-18 12:02] LABS: Free T4 (Free Thyroxine) 3.46 ng/dl (0.78-2.19)
[2020-12-18 12:18] LABS: Prostate Specific Ag Screen 0.8 ng/ml (0.0-4.0); Thyroid Stimulating Hormone < 0.02 uIU/mL (0.465-4.68)
== END ==
PROVIDERS: Visit Provider Emergency Medicine
DX: E11.9 Type 2 diabetes mellitus without complications (principal); Z12.5 Encounter for screening for malignant neoplasm of prostate; E55.9 Vitamin D deficiency, unspecified
CPT/HCPCS: 36415; 80053; 80061; 82306; 84439; 84443; 85025; G0103

== ENCOUNTER → 2020-12-26 07:43 | Outpatient (CLI) | payer MEDICARE, OTHER, SELFPAY ==
--- NOTE | 2020-12-26 07:45 | US_ITS ---
PROCEDURE: US GALLBLADDER CLINICAL INDICATION: abdominal pain COMPARISON: CT CT ABDOMEN PELVIS WO CON from 08/03/2020 FINDINGS: Pancreas: Unremarkable slightly increased echogenicity suggesting mild infiltration. Liver: There is slight nodularity of the lower contour there is overall slightly increased echogenicity and the consistent with mild cirrhosis and fatty infiltration. There is a moderate amount of ascitic fluid around the lobe of the liver similar in amount to the previous CT scan abdomen pelvis 119 2020. There is appropriate direction of blood flow within a non dilated portal vein. Right kidney: The right kidney measures 11.3 x 5.5 x 5.4 cm and appears sonographically normal. Gallbladder: There is mild distention of the gallbladder no definite gallstones. There may be a trace amount of biliary sludge along the dependent wall. The common bile duct measures 0.6 cm. IMPRESSION: Findings consistent with mild cirrhosis of the liver with small to moderate amount abdominal ascites and mildly distended gallbladder with questionable trace biliary sludge, no gallstones are seen Dictated by: Dr. Mikie Dupree MD 12/26/2020 08:48 Dr. Mikie Dupree MD in [place] 12/26/2020 08:48
== END ==
PROVIDERS: PCP Emergency Medicine; Visit Provider Emergency Medicine
DX: R10.11 Right upper quadrant pain (principal)
CPT/HCPCS: 76705

== ENCOUNTER → 2021-04-01 17:37 | Outpatient (CLI) | payer MEDICARE, OTHER, SELFPAY ==
[2021-04-01 18:52] LABS: Basophils # 0.1 K/mm3 (0-0.2); Basophils % 1.1 % (0.1-2.0); Eosinophils # 0.4 K/mm3 (0.0-0.4); Eosinophils % 5.9 % (0.1-12.0); Hemoglobin 13.7 g/dL (14.1-18.0); Lymphocytes # 1.5 K/mm3 (0.7-4.5); Lymphocytes % 20.7 % (10-50); Mean Corpuscular HGB Conc 31.1 g/dL (31.8-35.4); Mean Corpuscular Hemoglobin 27.9 pg (27.0-31.2); Mean Corpuscular Volume 89.6 fl (80-94); Mean Platelet Volume 9.2 fl (7.4-10.4); Monocytes # 0.7 K/mm3 (0.1-1.0); Monocytes % 10.2 % (1.7-9.3); Neutrophils # 4.4 K/mm3 (1.8-7.8); Neutrophils % 62.1 % (37.0-80.0); Platelet Count 184 K/mm3 (142-424); Red Blood Count 4.91 M/mm3 (4.60-6.20); Red Cell Distribution Width 16.3 % (11.5-17.5); White Blood Count 7.1 K/mm3 (4.8-10.8)
[2021-04-01 18:55] LABS: Chloride 106 mmol/L (98-107); Potassium 4.6 mmoL/L (3.5-5.1); Sodium 141 mmol/L (136-145)
[2021-04-01 18:58] LABS: Alanine Aminotransferase 16 U/L (12-78); Albumin Level 3.8 g/dl (3.5-5.0); Albumin/Globulin Ratio 1.1 (1.1-1.8); Alkaline Phosphatase 159 U/L (38-126); Anion Gap 14.6 mEq/L (5-15); Aspartate Amino Transferase 38 U/L (17-59); Bilirubin,Total 1.1 mg/dl (0.2-1.3); Blood Urea Nitrogen 12 mg/dl (9-20); Carbon Dioxide 25 mmol/L (22.0-30.0); Cholesterol 125 mg/dl (140-200); Estimated Glomerular Filt Rate 166 ml/min (>60); GFR (African American) 201 ML/MIN (>60); Globulin 3.5 g/dL (1.3-3.2); Total Protein,Serum 7.3 g/dl (6.3-8.2); Triglycerides 57 mg/dl (30-150); VLDL Cholesterol 11 mg/dL (0-40)
[2021-04-01 18:59] LABS: Calcium 9.1 mg/dl (8.4-10.2); Glucose 96 mg/dl (74-100); HDL Cholesterol 31 mg/dl (40-60)
[2021-04-01 19:09] LABS: Direct LDL Cholesterol 74.08 mg/dL (100-129)
[2021-04-01 19:17] LABS: T4 (Thyroxine) 12.4 ug/dl (5.53-11.0)
[2021-04-01 19:20] LABS: 25-OH Vitamin D, Total 53.7 ng/mL (30-100)
[2021-04-01 19:29] LABS: Thyroid Stimulating Hormone < 0.02 uIU/mL (0.465-4.68)
[2021-04-01 22:22] LABS: Prostate Specific Ag, Diagnost 0.955 ng/ml (0.0-4.0)
== END ==
PROVIDERS: Visit Provider Emergency Medicine
DX: E11.9 Type 2 diabetes mellitus without complications (principal); G47.9 Sleep disorder, unspecified; E55.9 Vitamin D deficiency, unspecified; E05.90 Thyrotoxicosis, unspecified without thyrotoxic crisis or storm; R31.9 Hematuria, unspecified; K74.60 Unspecified cirrhosis of liver
CPT/HCPCS: 80053; 80061; 82306; 83036; 84153; 84436; 84443; 85025

== ENCOUNTER → 2021-05-15 09:36 | Outpatient (CLI) | payer MEDICARE, MEDICAID, SELFPAY ==
[2021-05-15 10:51] LABS: Anion Gap 13.2 mEq/L (5-15); Blood Urea Nitrogen 17 mg/dl (9-20); Calcium 9.3 mg/dl (8.4-10.2); Carbon Dioxide 26 mmol/L (22.0-30.0); Chloride 106 mmol/L (98-107); Estimated Glomerular Filt Rate 166 ml/min (>60); GFR (African American) 201 ML/MIN (>60); Glucose 126 mg/dl (74-100); Potassium 4.2 mmoL/L (3.5-5.1); Sodium 141 mmol/L (136-145)
== END ==
PROVIDERS: Urology; Visit Provider Internal Medicine
DX: E78.5 Hyperlipidemia, unspecified (principal); I20.9 Angina pectoris, unspecified; I42.9 Cardiomyopathy, unspecified; I48.91 Unspecified atrial fibrillation; I50.20 Unspecified systolic (congestive) heart failure; R06.00 Dyspnea, unspecified; R94.30 Abnormal result of cardiovascular function study, unspecified; Z95.810 Presence of automatic (implantable) cardiac defibrillator; Z98.890 Other specified postprocedural states; I11.0 Hypertensive heart disease with heart failure
CPT/HCPCS: 36415; 80048

== ENCOUNTER → 2021-05-21 10:03 | Outpatient (CLI) | payer MEDICARE, MEDICAID, SELFPAY ==
--- NOTE | 2021-05-21 10:04 | CA_ITS ---
APPROVED REPORT Carousel Operator: ITZEL Laterality: Bilateral Indications: Positive Bruit, dizziness, SOB, pacemaker, afib, CAD, hx CM Risk Factors Hypertension: Hyperlipidemia Doppler Spectral Velocity Analysis ECA (R) 104.50/16.30 cm/s ECA (L) 95.70/16.60 cm/s dICA (R) 75.70/28.30 cm/s dICA (L) 63.20/26.60 cm/s Geoffrey (R) 75.60/27.20 cm/s Geoffrey (L) 77.40/24.10 cm/s pICA (R) 68.80/24.50 cm/s pICA (L) 70.70/25.00 cm/s dCCA (R) 90.00/24.80 cm/s dCCA (L) 97.30/25.00 cm/s pCCA (R) 97.30/24.60 cm/s pCCA (L) 91.70/23.10 cm/s Vert (R) 57.40/15.40 cm/s Vert (L) 32.80/12.00 cm/s ICA/CCA 0.84 ICA/CCA 0.79 Findings Duplex evaluation demonstrates stenosis of the right proximal internal carotid artery <20% with PSV <140 cm/sec, EDV <100 cm/sec, and IC/CC Ratio <4.0. Duplex evaluation demonstrates stenosis of the left proximal internal carotid artery <20% with PSV <140 cm/sec, EDV <100 cm/sec, and IC/CC Ratio <4.0. Conclusion Duplex evaluation demonstrates stenosis of the right proximal internal carotid artery <20% with PSV <140 cm/sec, EDV <100 cm/sec, and IC/CC Ratio <4.0. Duplex evaluation demonstrates stenosis of the left proximal internal carotid artery <20% with PSV <140 cm/sec, EDV <100 cm/sec, and IC/CC Ratio <4.0. Electronically signed by : Marv Duran MD 05/22/2021 19:41:23
== END ==
PROVIDERS: PCP Emergency Medicine; Visit Provider Emergency Medicine
DX: R09.89 Other specified symptoms and signs involving the circulatory and respiratory systems (principal)
CPT/HCPCS: 93880

== ENCOUNTER → 2021-06-04 12:56 | Outpatient (CLI) | payer MEDICARE, MEDICAID, SELFPAY ==
--- NOTE | 2021-06-04 13:00 | XR_ITS ---
PROCEDURE: XR SHOULDER RT MIN 2V CLINICAL INDICATION: RT shoulder pain COMPARISON: No exams were available for comparison FINDINGS: No fracture or dislocation. No lytic or blastic change. There is normal mineralization. There mild osteoarthritic changes at the joint. There is mild subacromial stenosis. Minimal osteoarthritic change of the AC joint. Other findings:Cardiac pacemaker device is present IMPRESSION: Mild osteoarthritic change with mild subacromial stenosis Dictated by: Marv Duran MD 06/04/2021 19:34 Marv Duran MD in [place] 06/04/2021 19:34
== END ==
PROVIDERS: PCP Emergency Medicine; Visit Provider Orthopaedic Surgery
DX: M25.511 Pain in right shoulder (principal)
CPT/HCPCS: 73030

== ENCOUNTER → 2022-11-20 06:33 | Outpatient (CLI) | payer MEDICARE, MEDICAID, SELFPAY ==
[2022-11-20 08:07] LABS: Basophils % 0.4 % (0.1-2.0); Eosinophils # 0.3 K/mm3 (0.0-0.4); Eosinophils % 3.2 % (0.1-12.0); Hemoglobin 16.4 g/dL (14.1-18.0); Mean Corpuscular HGB Conc 33.6 g/dL (31.8-35.4); Mean Corpuscular Hemoglobin 30.3 pg (27.0-31.2); Mean Corpuscular Volume 90.2 fl (80-94); Mean Platelet Volume 8.5 fl (7.4-10.4); Monocytes # 0.8 K/mm3 (0.1-1.0); Neutrophils # 5.2 K/mm3 (1.8-7.8); Neutrophils % 62.5 % (37.0-80.0); Platelet Count 159 K/mm3 (142-424); Red Blood Count 5.43 M/mm3 (4.60-6.20); Red Cell Distribution Width 12.8 % (11.5-17.5); White Blood Count 8.2 K/mm3 (4.8-10.8)
[2022-11-20 08:36] LABS: Alanine Aminotransferase 33 U/L (12-78); Albumin Level 3.8 g/dl (3.5-5.0); Albumin/Globulin Ratio 1.4 (1.1-1.8); Alkaline Phosphatase 116 U/L (38-126); Anion Gap 14.8 mEq/L (5-15); Aspartate Amino Transferase 35 U/L (17-59); Bilirubin,Total 1.1 mg/dl (0.2-1.3); Blood Urea Nitrogen 13 mg/dl (9-20); Calcium 8.8 mg/dl (8.4-10.2); Carbon Dioxide 28 mmol/L (22.0-30.0); Chloride 99 mmol/L (98-107); Chol/HDL Ratio 3.5 (1-3.5); Cholesterol 122 mg/dl (140-200); Estimated Glomerular Filt Rate 134 ml/min (>60); GFR (African American) 162 ML/MIN (>60); Globulin 2.7 g/dL (1.3-3.2); Glucose 158 mg/dl (74-100); HDL Cholesterol 35 mg/dl (40-60); Potassium 4.8 mmoL/L (3.5-5.1); Sodium 137 mmol/L (136-145); Total Protein,Serum 6.5 g/dl (6.3-8.2); Triglycerides 72 mg/dl (30-150); VLDL Cholesterol 14 mg/dL (0-40)
[2022-11-20 08:46] LABS: Direct LDL Cholesterol 78.18 mg/dL (100-129)
[2022-11-20 09:07] LABS: Thyroid Stimulating Hormone < 0.02 uIU/mL (0.465-4.68)
--- NOTE | 2022-11-20 14:30 | CA_ITS ---
FINAL REPORT TECHNIQUE: Ultrasound images of the deep venous system were obtained from the left groin to the calf veins. CLINICAL HISTORY: Left lower extremity pain/cramping with ambulation, swelling COMPARISON: none FINDINGS: The deep venous system is normally compressible. Normal flow is identified. Moderate sized popliteal cyst is noted. IMPRESSION: No evidence of left lower extremity DVT. Reviewed, Interpreted and Dictated by Jose Manuel Rivera III, MD Transcribed by Leisa Pickett Authenticated and [facility]
== END ==
PROVIDERS: PCP Emergency Medicine; Visit Provider Emergency Medicine
DX: E55.9 Vitamin D deficiency, unspecified; E78.2 Mixed hyperlipidemia; I25.10 Atherosclerotic heart disease of native coronary artery without angina pectoris; I42.0 Dilated cardiomyopathy; I50.20 Unspecified systolic (congestive) heart failure; M79.605 Pain in left leg; R06.02 Shortness of breath; E11.9 Type 2 diabetes mellitus without complications
CPT/HCPCS: 36415; 80053; 80061; 82306; 84439; 84443; 85025; 93971

== ENCOUNTER → 2022-12-03 08:08 | Outpatient (CLI) | payer MEDICARE, MEDICAID, SELFPAY ==
[2022-12-03 10:50] LABS: Hemoglobin A1C 7.4 % (4.0-6.0)
== END ==
PROVIDERS: PCP Emergency Medicine; Visit Provider Physician Assistant
DX: E11.9 Type 2 diabetes mellitus without complications (principal)
CPT/HCPCS: 36415; 83036

== ENCOUNTER → 2022-12-08 10:32 | Outpatient (CLI) | payer MEDICARE, MEDICAID, SELFPAY | PROVIDERS: PCP Emergency Medicine; Visit Provider Nurse Practitioner | DX: E78.2 Mixed hyperlipidemia (principal); I25.10 Atherosclerotic heart disease of native coronary artery without angina pectoris; I42.0 Dilated cardiomyopathy; I50.20 Unspecified systolic (congestive) heart failure; R06.02 Shortness of breath | CPT/HCPCS: 93306 ==

== ENCOUNTER 2023-01-22 10:23 | Day surgery (SDC) | payer MEDICARE, MEDICAID, SELFPAY ==
[2023-01-22] VITALS (7 sets, daily range): BP systolic 109–131; BP diastolic 48–82; PULSE 59–84; RESP 18–20; TEMP 36.7; O2SAT 93–96; BMI 34.8
--- NOTE | 2023-01-22 | IR_ITS ---
APPROVED REPORT Patient Location: Outpatient Drama Therapist: ERNIE Gatica RT (R) PROCEDURES 1. Pocket Revision 2. Placement of left ventricular sensing pacing lead into the coronary sinus. 3. Permanent cardiac resynchronization therapy with ICD implantation/biventricular pacemaker. INDICATION [place] Heart Association class III heart failure, Paroxysmal Atrial fibrillation, Pacemaker induced cardiomyopathy, Systolic congestive heart failure ejection fraction less than 35% Informed consent was obtained prior to the procedure. COMPLICATIONS None Estimated Blood Loss: Less than 10 ml TECHNIQUE 1% lidocaine with epinephrine used to anesthetize the left anterior aspect of the chest. Scalpel was used to make the initial cutaneous incision and to dissect down into the fascia. The generator was removed from the existing pocket. Digital manipulation was required along with intermittent usage of scalpel in order to revise the pocket. The leads were removed from the old generator. The patient was then placed in Trendelenburg position and the subclavian vein was accessed 1 time via the Selinger technique. A 9.5 [place] sheath was placed under fluoroscopic guidance into the subclavian vein. The dilator was removed from the sheath. Under fluoroscopic guidance the coronary sinus was cannulated and confirmed with an injection of contrast. An 0.014 wire was then placed distally in the inferior posterior segment of the left ventricle via the coronary sinus and the left ventricular lead was advanced. After achieving excellent thresholds and interrogation numbers the sheath was then peeled away and the lead was then secured into place using silk suture. Ancef was used to flush the pocket and the 3 leads were attached to the CRYSTAL CALIBRATOR-D generator. The generator was then secured into place by heavy silk suture. Monocryl was used to close the subcutaneous layers while tracie were used to close the subcutaneous layers while tracie were used to close the cutaneous layer. A pressure dressing was placed and the patient was transferred to the postop holding area in stable condition for postoperative care. INTERROGATION Generator Model number: [id number] Generator Serial number: [id number] Chronic Atrial lead model number:[id number] Chronic Atrial lead serial number: [id number] Chronic Right Ventricular lead model number: [id number] Chronic Right Ventricular lead serial number: [id number] Left Ventricular lead model number: [id number]/86 Left Ventricular lead serial number: [id number] R-wave: 20.5 mV Impedence: 2000 Ohms Threshold: 3.5 V Pacing Parameters: Mode: DDD Base/Max Track: 60/110 bpm ICD Rate Cutoffs: VT: 175 bpm. 2.5 sec, ATP, 41Jx8 VT-1: 155 mpb 2.5 sec Monitor only VF: 220 bpm 1.0 sec Quick convert, 41 J x 8 No diaphragmatic stimulation at 10 volts. IMPRESSION 1. Successful pocket revision for biventricular pacemaker generator with cardiac resynchronization/defibrillator therapy. 2. Successful placement of left ventricular sensing pacing lead via the coronary sinus. 3. Successful permanent cardiac resynchronization plus AICD generator device. PLAN 1. Post Op Wound Care Electronically signed by : Santana Beyer MD 01/30/2023 09:15:55
[2023-01-22 10:55] LABS: Anion Gap 11.2 mEq/L (5-15); Blood Urea Nitrogen 10 mg/dl (9-20); Carbon Dioxide 25 mmol/L (22.0-30.0); Chloride 107 mmol/L (98-107); Creatinine Clearance Estimated 117 mL/min (50-200); Estimated Glomerular Filt Rate 134 ml/min (>60); GFR (African American) 162 ML/MIN (>60); Glucose 118 mg/dl (74-100); Potassium 4.2 mmoL/L (3.5-5.1); Sodium 139 mmol/L (136-145)
--- NOTE | 2023-01-22 12:28 | SUR.PREOP ---
Called lab for update on CBC and they stated it was sent out and awaiting results
[2023-01-22 12:43] LABS: Hemoglobin 14.3 g/dL (14.1-18.0); Red Blood Count 5.06 M/mm3 (4.60-6.20); White Blood Count 6.2 K/mm3 (4.8-10.8)
[2023-01-22 12:44] LABS: Basophils # 0.1 K/mm3 (0-0.2); Eosinophils # 0.3 K/mm3 (0.0-0.4); Eosinophils % 4.7 % (0.1-12.0); Lymphocytes # 1.3 K/mm3 (0.7-4.5); Lymphocytes % 20.5 % (10-50); Mean Corpuscular HGB Conc 33.3 g/dL (31.8-35.4); Mean Corpuscular Hemoglobin 28.3 pg (27.0-31.2); Mean Platelet Volume 10.7 fl (7.4-10.4); Monocytes # 0.9 K/mm3 (0.1-1.0); Monocytes % 13.4 % (1.7-9.3); Neutrophils # 3.7 K/mm3 (1.8-7.8); Neutrophils % 60.2 % (37.0-80.0); Platelet Count 144 K/mm3 (142-424); Red Cell Distribution Width 14.6 % (11.5-17.5)
--- NOTE | 2023-01-22 14:59 | XR_ITS ---
FINAL REPORT CLINICAL HISTORY: post aicd FINDINGS: A portable view of the chest was obtained. A prior from 12/27/2019 was used for comparison. There has been interval placement of a new left AICD. The heart is mildly enlarged but stable. The lungs are clear. There is no pleural effusion or pneumothorax. IMPRESSION: Revised left AICD. No acute cardiac or pulmonary abnormality. Reviewed, Interpreted and Dictated by Racheal Cole MD Transcribed by Morales Webber Authenticated and [facility]
--- NOTE | 2023-01-22 15:11 | EXP.ANES.CKL ---
[facility] Disclaimer: The information contained in this section may have been updated after the patient was seen, as this information can be updated by other users. Medical History Chest pain Daytime somnolence Hyperlipidemia (~05/10/18) Left leg pain Left ventricular apical thrombus Restless sleeper Vitamin D deficiency Family History (Updated 01/22/23 @ 11:20 by Sandi Dumont RN) Other No significant family history Social History (Updated 01/22/23 @ 11:21 by Sandi Dumont RN) Smoking Status: Former smoker second hand exposure: No alcohol intake: never substance use type: denies use current occupational status: retired Travel in the last 8 weeks: Inside the [place] household members: none housing: house current occupational exposures/hazards: No caffeine: No [facility] Anesthesia Checklist Patient Identification Patient Identification: Arm Band and Family Structural Data Admitted From: Home Planned Operative Procedure/s: [place] upgrade pacemaker Consent for Planned Operative Procedure(s) Verified: Yes Verified Documents: Surgical Consent, History and Physical and Cardiac Clearance NPO Status Verified Time NPO: 00:00 Additional verifications Patient : No Anesthesia Reactions: No Hx Blood Transfusions: No Blood Transfusion Reaction: No Cephalosporin Allergy: No Previous Colonoscopy: No Airway Assessment C-Spine Mobility Assessed: Yes TMJ Mobility Assessed: Yes Dentition: Edentulous Neurological Assessment Level of Consciousness: Awake, Alert, Appropriate and Follows Commands Hx Seizures: No Numbness or tingling in extremities: No Anesthesia Plan Anesthesia Risk discussed: Yes ASA Class: III Anesthesia Type: MAC Preoperative Comments Pre-Operative Comments: Hypertension. Obesity. Shortness of breath. Stomach ulcers.
--- NOTE | 2023-01-22 15:17 | ECG_ITS ---
APPROVED REPORT Exam: Resting ECG HR:68 bpm ECG Measurements Heart Rate 68 AXES AK 84 P -64 QRSd 60 QRS 223 QT 382 T -34 QTc 399 Conclusion ELECTRONIC ATRIAL PACEMAKER Abnl ecg UNCONFIRMED REPORT Electronically signed by : Timothy Mireles MD 01/22/2023 21:21:53
== END 2023-01-22 16:04 | disposition home or self-care (01) ==
PROVIDERS: PCP Emergency Medicine; Visit Provider Internal Medicine
DX: E11.9 Type 2 diabetes mellitus without complications (principal); I48.0 Paroxysmal atrial fibrillation; E55.9 Vitamin D deficiency, unspecified; I42.8 Other cardiomyopathies; E78.5 Hyperlipidemia, unspecified; Z79.899 Other long term (current) drug therapy; I11.0 Hypertensive heart disease with heart failure; Z79.84 Long term (current) use of oral hypoglycemic drugs; Z45.02 Encounter for adjustment and management of automatic implantable cardiac defibrillator; I50.22 Chronic systolic (congestive) heart failure
CPT/HCPCS: 33225; 33264; 36415; 71045; 80048; 85025; 93005; C1769; C1882; C1900; J2704; Q9967

== ENCOUNTER 2023-01-24 12:43 | Emergency (ER) | payer MEDICARE, MEDICAID, SELFPAY ==
--- NOTE | 2023-01-24 12:48 | ECG_ITS ---
APPROVED REPORT Exam: Resting ECG HR:91 bpm ECG Measurements Heart Rate 91 AXES QRSd 95 QRS 62 QT 356 T 106 QTc 405 Conclusion Pacer spikes noted, but do not appear to be consistently triggering conduction. Underlying supraventricular rhythm noted LOW QRS VOLTAGE IN PRECORDIAL LEADS [QRS DEFLECTION < 1.0 mV IN CHEST LEADS] POSSIBLE ANTERIOR MYOCARDIAL INFARCTION , PROBABLY OLD [30 ms Q WAVE IN V3/V4, OR R < 0.2 mV IN V4] ABNORMAL RHYTHM ECG UNCONFIRMED REPORT Electronically signed by : Timothy Mireles MD 01/25/2023 08:48:17
[2023-01-24 12:53] VITALS: BP 143/76; PULSE 84; RESP 20; TEMP 37.2; O2SAT 95; BMI 34.7
--- NOTE | 2023-01-24 12:59 | XR_ITS ---
PROCEDURE INFORMATION: Exam: XR Chest Exam date and time: 01/24/2023 1:31 PM Age: 67 years old Clinical indication: Other: Chest discomfort; Additional info: Palpitations, defibrillator placed - feels thumping sensation in chest, FX in right ribs that is causing pain TECHNIQUE: Imaging protocol: Radiologic exam of the chest. Views: 1 view. COMPARISON: CR XR CHEST PORTABLE 01/22/2023 3:15 PM FINDINGS: Tubes, catheters and devices: Cardiac device with overlying skin tracie. Pacer leads stable. Lungs: Unremarkable. No consolidation. Pleural spaces: Unremarkable. No pleural effusion. No pneumothorax. Heart/Mediastinum: Unremarkable. No cardiomegaly. Bones/joints: Unremarkable. IMPRESSION: No acute findings.
--- NOTE | 2023-01-24 13:01 | HMH.EDGENADL ---
Discharge Plan Disposition Patient Disposition: Home, Self-Care Condition: Good Prescriptions Prescriptions: New oxycodone 10 mg tablet 10 mg PO Q6H PRN (Reason: pain (scale score 7-10)) Qty: 12 0RF No Action pantoprazole [Protonix] 40 mg tablet,delayed release (DR/EC) 40 mg PO DAILY PRN (Reason: GERD) 90 Days Qty: 90 0RF atorvastatin 10 mg tablet 10 mg PO DAILY Qty: 30 0RF (DME) blood-glucose meter Kit See Rx Instructions .ROUTE .MEDSUPPLY Qty: 1 0RF Rx Instructions: As directedor 1x a day What ever insurance will pay for with lancets and strips aspirin 81 MG tablet,delayed release (DR/EC) 81 mg PO DAILY metformin 500 mg tablet 500 mg PO DAILY metoprolol succinate [Toprol XL] 50 mg tablet extended release 24 hr 50 mg PO DAILY Referrals Follow up/Referrals: David Domingo MD [Primary Care Provider] - See instructions Activity Restrictions/Add. Instructions Additional Instructions/Restrictions: Dr. Beyer wants you to increase your metoprolol. Take a second metoprolol pill tonight. Also take 2 doses of tomorrow. This will total 100 mg daily. Take Tylenol if needed for pain. If this is not controlling your pain, take the prescribed oxycodone as directed. Follow-up with cardiology on Thursday. They will contact you for an appointment time. Return to the emergency department with any new or worsening symptoms. Clinical Impressions Clinical Impression: Heart palpitations Discharge ED Provider: [facility] Adult HPI General Chief complaint: Arrhythmia/Palpitations Stated complaint: Post op 01/22 SOA, neck pain, fast heartbeat Time Seen by Provider: 01/24/23 12:52 Mode of Arrival: Ambulatory Source of Information: Patient Limitations: No Limitations Description of Symptoms (Recalled from ER Triage Doc. by RN): pt to ed c/o intermittent SOA, pain at surgical site and chest wall spasms. pt states he had a defib placed x2 days ago. History of Present Illness HPI narrative: This 67-year-old male with a history of CAD, pacemaker, hyperlipidemia, hypothyroid presents to the emergency department with concerns of palpitations and squeezing left-sided chest discomfort. Patient had pacemaker exchange with Dr. Beyer earlier this week. He states he attempted to call the office yesterday but did not hear back before closing hours. He states he does not specifically have chest pain, but he does have left-sided neck and shoulder pain which she has had since the surgery. Palpitations did not start until yesterday. Patient states otherwise postoperative course has been okay and he generally feels otherwise well. Related Data Home Medications Medication Instructions Recorded Confirmed aspirin 81 mg tablet,delayed 81 mg PO DAILY heart health 10/31/20 01/08/23 release metformin 500 mg tablet 500 mg PO DAILY bs 01/22/23 metoprolol succinate 50 mg 50 mg PO DAILY htn 01/22/23 tablet,extended release 24 hr (Toprol XL) Previous Rx's Medication Instructions Recorded pantoprazole 40 mg tablet,delayed 40 mg PO DAILY PRN GERD 90 days 11/24/22 release (Protonix) #90 tabs atorvastatin 10 mg tablet 10 mg PO DAILY Diabetes #30 tabs 12/11/22 blood-glucose meter #1 ea 12/11/22 oxycodone 10 mg tablet 10 mg PO Q6H PRN pain (scale score 01/24/23 7-10) #12 tabs Allergies Allergy/AdvReac Type Severity Reaction Status Date / Time lisinopril AdvReac Severe Verified 01/22/23 11:29 [facility] Disclaimer: The information contained in this section may have been updated after the patient was seen, as this information can be updated by other users. Medical History Chest pain Daytime somnolence Hyperlipidemia (~05/10/18) Left leg pain Left ventricular apical thrombus Restless sleeper Vitamin D deficiency Family History (Updated 01/22/23 @ 11:20 by Sandi Dumont RN) Other No significant family h
--- NOTE | 2023-01-24 13:16 | PC.NURSE ---
spoke with Dr Beyer who then spoke with the rep for pt's defibrillator. Rep called and requested transmission of defibrillator. Rep states he will call back with report.
--- NOTE | 2023-01-24 13:38 | PC.NURSE ---
on with Dr Beyer again
[2023-01-24 13:57] VITALS: BP 122/64; PULSE 78; RESP 16; TEMP 37.2; O2SAT 95
== END 2023-01-24 14:52 | disposition home or self-care (01) ==
PROVIDERS: Emergency Provider Emergency Medicine; PCP Emergency Medicine
DX: R00.2 Palpitations (principal); M54.2 Cervicalgia; R06.02 Shortness of breath; I25.10 Atherosclerotic heart disease of native coronary artery without angina pectoris; E78.5 Hyperlipidemia, unspecified; E03.9 Hypothyroidism, unspecified; I49.3 Ventricular premature depolarization
CPT/HCPCS: 71045; 93005; 99284

== ENCOUNTER → 2023-01-27 09:16 | Outpatient (CLI) | payer MEDICARE, MEDICAID, SELFPAY ==
--- NOTE | 2023-01-27 09:23 | CT_ITS ---
FINAL REPORT TECHNIQUE: Thin section axial CT with contrast with multiplanar reconstruction CLINICAL HISTORY: to rule out PE, soa. fx in right side of ribs, defibrillator implanted last FINDINGS: Pulmonary vessels enhance in normal fashion without evidence of embolism. Thoracic aorta shows no aneurysm. Cannot evaluate for dissection due to contrast timing. No pulmonary mass or infiltrate is present. Emphysema. There is no significant pleural effusion. There is no significant pericardial effusion. No mediastinal or hilar adenopathy is present. IMPRESSION: 1. No evidence of pulmonary embolism Reviewed, Interpreted and Dictated by Dmitri Rosales MD Transcribed by Vito Mcnamara Authenticated and [facility]
== END ==
PROVIDERS: PCP Emergency Medicine; Visit Provider Nurse Practitioner
DX: E78.5 Hyperlipidemia, unspecified (principal); I25.10 Atherosclerotic heart disease of native coronary artery without angina pectoris; I27.20 Pulmonary hypertension, unspecified; I42.8 Other cardiomyopathies; I48.91 Unspecified atrial fibrillation; I50.20 Unspecified systolic (congestive) heart failure; J44.9 Chronic obstructive pulmonary disease, unspecified; R00.2 Palpitations; R06.02 Shortness of breath; R07.89 Other chest pain; Z95.810 Presence of automatic (implantable) cardiac defibrillator; I11.0 Hypertensive heart disease with heart failure
CPT/HCPCS: 71275; Q9967

== ENCOUNTER 2023-02-14 08:22 | Inpatient (IN) | payer MEDICARE, MEDICAID, SELFPAY ==
[2023-02-14] VITALS (11 sets, daily range): BP systolic 97–127; BP diastolic 51–84; PULSE 89–125; RESP 15–30; TEMP 36.3–37.3; O2SAT 92–99; BMI 32.5; BMI 40.5
--- NOTE | 2023-02-14 08:22 | ECG_ITS ---
APPROVED REPORT Exam: Resting ECG HR:126 bpm ECG Measurements Heart Rate 126 AXES QRSd 98 QRS 61 QT 272 T 93 QTc 347 Conclusion ATRIAL FIBRILLATION WITH RAPID VENTRICULAR RESPONSE WITH ABERRANT CONDUCTION OR VENTRICULAR PREMATURE COMPLEXES LOW QRS VOLTAGE IN PRECORDIAL LEADS [QRS DEFLECTION < 1.0 mV IN CHEST LEADS] ANTERIOR MYOCARDIAL INFARCTION , PROBABLY OLD [40+ ms Q WAVE AND/OR ST/T ABNORMALITY IN V3/V4] ABNORMAL ECG UNCONFIRMED REPORT Electronically signed by : Timothy Mireles MD 02/14/2023 12:41:50
--- NOTE | 2023-02-14 08:41 | PC.NURSE ---
performed bedside ultrasound
--- NOTE | 2023-02-14 08:42 | CT_ITS ---
PROCEDURE INFORMATION: Exam: CT Chest With Contrast; Diagnostic Exam date and time: 02/14/2023 9:20 AM Age: 67 years old Clinical indication: Other: Infection at pacemaker site; Additional info: Pacemaker site infection TECHNIQUE: Imaging protocol: Diagnostic computed tomography of the chest with contrast. Radiation optimization: All CT scans at this facility use at least one of these dose optimization techniques: automated exposure control; mA and/or kV adjustment per patient size (includes targeted exams where dose is matched to clinical indication); or iterative reconstruction. Contrast material: ISOVUE; Contrast volume: 75 ml; Contrast route: IV; REPORTING DATA: Count of CT and Cardiac NM exams in prior 12 months: This patient has received [address] and 0 known cardiac nuclear medicine studies in the 12 months prior to the current study. COMPARISON: CT ANGIO CHEST PE PROTOCOL 01/27/2023 10:04 AM FINDINGS: Tubes, catheters and devices: There is a partially visualized fluid collection surrounding the left chest pacemaker generator, measuring up to 5 cm in axial diameter, 3.5 cm in julia posterior dimension, and up to 9 cm in craniocaudal dimension, although the superior most aspect of the fluid collection is not included in the field of view. Lungs: Calcified pulmonary granuloma in right lower lobe. Subtle ground-glass opacification in the medial aspect of the right middle lobe, concerning for pneumonia (series 2, image 44). Pleural spaces: Unremarkable. No pneumothorax. No pleural effusion. Heart: Unremarkable. No cardiomegaly. No pericardial effusion. Lymph nodes: Unremarkable. No enlarged lymph nodes. Vasculature: Unremarkable. No aortic aneurysm. Liver: Nodular, cirrhotic liver. Bones/joints: Unremarkable. No acute fracture. Soft tissues: Bilateral gynecomastia. IMPRESSION: 1. There is a partially visualized fluid collection surrounding the left chest pacemaker generator, measuring up to 5 cm in axial diameter, 3.5 cm in anteroposterior dimension, and up to 9 cm in craniocaudal dimension, although the superior most aspect of the fluid collection is not included in the field of view. Findings are most consistent with an infectious process. 2. Nodular, cirrhotic liver. 3. Subtle ground-glass opacification in the medial aspect of the right middle lobe, concerning for pneumonia.
[2023-02-14 08:54] LABS: Chloride 100 mmol/L (98-107); Potassium 3.7 mmoL/L (3.5-5.1); Sodium 134 mmol/L (136-145)
[2023-02-14 08:56] LABS: Blood Urea Nitrogen 23 mg/dl (9-20)
[2023-02-14 08:57] LABS: Alanine Aminotransferase 44 U/L (12-78); Albumin Level 3.6 g/dl (3.5-5.0); Alkaline Phosphatase 179 U/L (38-126); Anion Gap 15.7 mEq/L (5-15); Aspartate Amino Transferase 49 U/L (17-59); Bilirubin,Total 1.6 mg/dl (0.2-1.3); Calcium 9.7 mg/dl (8.4-10.2); Carbon Dioxide 22 mmol/L (22.0-30.0); Creatinine Clearance Estimated 109 mL/min (50-200); Estimated Glomerular Filt Rate 84 ml/min (>60); GFR (African American) 102 ML/MIN (>60); Globulin 3.6 g/dL (1.3-3.2); Glucose 227 mg/dl (74-100); Total Protein,Serum 7.2 g/dl (6.3-8.2)
--- NOTE | 2023-02-14 08:59 | PC.NURSE ---
ice chips provided. Pt updated on plan of care. No further complaints at this time. Family remains at bedside.
--- NOTE | 2023-02-14 09:02 | PC.NURSE ---
Per pharmacy, awaiting on lab work prior to verifying Vancomycin dose.
[2023-02-14 09:03] LABS: Basophils # 0.1 K/mm3 (0-0.2); Basophils % 0.4 % (0.1-2.0); Eosinophils % 0.1 % (0.1-12.0); Hematocrit 50.9 % (42.0-52.0); Hemoglobin 16.3 g/dL (14.1-18.0); Lymphocytes # 0.5 K/mm3 (0.7-4.5); Lymphocytes % 4.2 % (10-50); Mean Corpuscular Hemoglobin 27.7 pg (27.0-31.2); Mean Corpuscular Volume 86.4 fl (80-94); Mean Platelet Volume 9.8 fl (7.4-10.4); Monocytes # 0.8 K/mm3 (0.1-1.0); Monocytes % 6.7 % (1.7-9.3); Neutrophils % 88.5 % (37.0-80.0); Platelet Count 79 K/mm3 (142-424); Red Blood Count 5.89 M/mm3 (4.60-6.20); Red Cell Distribution Width 14.4 % (11.5-17.5); White Blood Count 12.4 K/mm3 (4.8-10.8)
[2023-02-14 09:04] LABS: MANUAL DIFFERENTIAL MANUAL DIFFERENTIAL (MANUAL DIFF)
--- NOTE | 2023-02-14 09:05 | PC.NURSE ---
notified of ct order, kidney function labs are resulted
[2023-02-14 09:06] LABS: NT Pro Brain Natriuretic Pep. 8100 pg/mL (0-125)
[2023-02-14 09:07] LABS: Lactic Acid 4.3 mmol/L (0.7-2.1)
--- NOTE | 2023-02-14 09:07 | PC.NURSE ---
critical lactic acid result given to RUSS WILKS at this time.
[2023-02-14 09:09] LABS: Troponin I 0.06 ng/ml (0.00-0.034)
--- NOTE | 2023-02-14 09:10 | EXP.PHA.CONS ---
Pharmacy Consult Date: 02/14/23 Time: 09:10 Referring provider: DR. ROBLES Reason for Consult:: VANCOMYCIN DOSING Allergies Allergy/AdvReac Type Severity Reaction Status Date / Time lisinopril AdvReac Severe Verified 02/03/23 11:42 Home Medications Medication Instructions Recorded Confirmed Type aspirin 81 mg tablet,delayed 81 mg PO DAILY heart health 10/31/20 02/03/23 History release pantoprazole 40 mg tablet,delayed 40 mg PO DAILY PRN GERD 90 days 11/24/22 02/03/23 Rx release (Protonix) #90 tabs atorvastatin 10 mg tablet 10 mg PO DAILY Diabetes #30 tabs 12/11/22 02/03/23 Rx blood-glucose meter #1 ea 12/11/22 02/03/23 Rx metformin 500 mg tablet 500 mg PO DAILY bs 01/22/23 02/03/23 History oxycodone 10 mg tablet 10 mg PO Q6H PRN pain (scale score 01/24/23 02/03/23 Rx 7-10) #12 tabs furosemide 40 mg tablet (Lasix) 40 mg PO DAILY #30 tabs 01/27/23 02/03/23 Rx metoprolol succinate 50 mg 50 mg PO BID htn 01/27/23 02/03/23 History tablet,extended release 24 hr (Toprol XL) New Prescriptions to Start Prescriptions: Height: 1.83 m Weight: 108.862 kg Laboratory Results:: Laboratory Results - last 24 hr 02/14/23 08:25: WBC 12.4 H, RBC 5.89, Hgb 16.3, Hct 50.9, MCV 86.4, MCH 27.7, MCHC 32.0, RDW 14.4, Plt Count 79 L, MPV 9.8, Neut % (Auto) 88.5 H, Lymph % (Auto) 4.2 L, Donley % (Auto) 6.7, Eos % (Auto) 0.1, Baso % (Auto) 0.4, Neut # (Auto) 11.0 H, Lymph # (Auto) 0.5 L, Donley # (Auto) 0.8, Eos # (Auto) 0.0, Baso # (Auto) 0.1, Sodium 134 L, Potassium 3.7, Chloride 100, Carbon Dioxide 22, Anion Gap 15.7 H, BUN 23 H, Creatinine 0.90, Estimated Creat Clear 109, Estimated GFR 84, Est GFR ( Amer) 102, Glucose 227 H, Lactate 4.3 H, Calcium 9.7, Total Bilirubin 1.6 H, AST 49, ALT 44, Alkaline Phosphatase 179 H, NT-Pro-B Natriuret Pep 8100 H, Total Protein 7.2, Albumin 3.6, Globulin 3.6 H, Albumin/Globulin Ratio 1.0 L Medical History: Medical History (Updated 01/24/23 @ 13:48 by El Ventura MD) Chest pain Daytime somnolence Hyperlipidemia (~05/10/18) Left leg pain Left ventricular apical thrombus Restless sleeper Vitamin D deficiency Assessment and Plan Assessment and plan all Dx Assessment and Plan for all problems:: Pharmacokinetic dosing service Objective: Patient: Floor: Age: 67 yo Serum creatinine: 0.90 mg/dL Height: 72.0 Inches Weight (kg): 109 Assessment: IBW (kg): 77.60 Dosing wt(kg): 109 Estimated Creatinine clearance (ml/min): 86.2 CRCL method: Cockcroft and Gault using ibw(default). Drug selected: Vancomycin Loading dose (mg): Vd (liters): 87.2 (factor used: 0.8 L/kg) Alden (hr-1): 0.076 Half life (hrs): 9.12 CLvanco=?? 6.627 L/hr Recommended dose: 1750 mg Interval: 12 hrs Infusion time (hrs): 2.0 Predicted peak (mcg/mL): 31.1 Predicted trough (mcg/mL): 14.54 Total body weight is being used for vancomycin dosing. Recommendations: Give Vancomycin 1750 mg q 12 hrs with an expected Cpeak of 31.1 mcg/ml and an expected Ctrough of 14.54 mcg/ml AUC 0-24 /ALEYDA Data: ALEYDA 0.5 mcg/mL:?? AUC/ALEYDA:? 1056.3 ALEYDA 1.0 mcg/mL:?? AUC/ALEYDA:? 528.1 --------- ALEYDA 1.5 mcg/mL:?? AUC/ALEYDA:? 352.1 ALEYDA 2.0 mcg/mL:?? AUC/ALEYDA:? 264.1 Thank you for the consult, will continue to follow. -ELVIA ALBERTS, MARTAD
--- NOTE | 2023-02-14 09:15 | PC.NURSE ---
To CT. notified of c/o headache. Awaiting new orders.
[2023-02-14 09:16] LABS: Lymphocytes % 2 % (10-50); Monocytes % 4 % (2-9); Neutrophils % 87 % (42-76); Platelet Estimate Moderate Decrease; RBC Morphology Normal; Total Cells Counted 100
[2023-02-14 09:17] LABS: Toxic Granulation 1+
--- NOTE | 2023-02-14 09:26 | HMH.EDGENADL ---
Discharge Plan Disposition Patient Disposition: Admitted Condition: Fair Clinical Impressions Clinical Impression: Cellulitis of chest wall Sepsis Qualifiers: Sepsis type: sepsis due to unspecified organism Sepsis acute organ dysfunction status: without acute organ dysfunction Qualified Code(s): A41.9 - Sepsis, unspecified organism Implanted cardiac defibrillator infection Qualifiers: Encounter type: initial encounter Qualified Code(s): T82.7XXA - Infection and inflammatory reaction due to other cardiac and vascular devices, implants and grafts, initial encounter Discharge ED Provider: Scott Ly I General Adult HPI General Chief complaint: Headache Stated complaint: chest pain, headache, chills Time Seen by Provider: 02/14/23 08:41 Mode of Arrival: Ambulatory Source of Information: Patient Limitations: No Limitations Description of Symptoms (Recalled from ER Triage Doc. by RN): Presents via POV d/t peristent headache without vision changes x 5 days, nausea, and intermittent chills. S/P impanted pacemake x 10d ago by Dr. Beyer. Warmth and swelling noted to site. History of Present Illness HPI narrative: Patient is a 67-year-old male, history of CAD with prior UT, AICD in place, A-fib, COPD, CHF, pulmonary hypertension, HLD with recent pacemaker replacement 01/22 presenting to the emergency department with 3-day history of fever, chills, headache, nausea and worsening redness at the pacemaker insertion site. History was conducted with the patient as well as the son at bedside. He reports that he has been symptomatic for the past 3 days with severe headaches as well as nausea, decreased appetite. He has also had intermittent chills and fever but reports that he took an oral temperature at home that was low . He denies any episodes of vomiting. Denies cough, congestion, runny nose, abdominal pain, diarrhea, constipation. They noted that he has had increasing redness of the left upper chest where his pacemaker was replaced 2 days ago. Related Data Home Medications Medication Instructions Recorded Confirmed aspirin 81 mg tablet,delayed 81 mg PO DAILY heart health 10/31/20 02/03/23 release metformin 500 mg tablet 500 mg PO DAILY bs 01/22/23 02/03/23 metoprolol succinate 50 mg 50 mg PO BID htn 01/27/23 02/03/23 tablet,extended release 24 hr (Toprol XL) Previous Rx's Medication Instructions Recorded pantoprazole 40 mg tablet,delayed 40 mg PO DAILY PRN GERD 90 days 11/24/22 release (Protonix) #90 tabs atorvastatin 10 mg tablet 10 mg PO DAILY Diabetes #30 tabs 12/11/22 blood-glucose meter #1 ea 12/11/22 oxycodone 10 mg tablet 10 mg PO Q6H PRN pain (scale score 01/24/23 7-10) #12 tabs furosemide 40 mg tablet (Lasix) 40 mg PO DAILY #30 tabs 01/27/23 Allergies Allergy/AdvReac Type Severity Reaction Status Date / Time lisinopril AdvReac Severe Verified 02/03/23 11:42 [facility] Disclaimer: The information contained in this section may have been updated after the patient was seen, as this information can be updated by other users. Medical History Chest pain Daytime somnolence Hyperlipidemia (~05/10/18) Left leg pain Left ventricular apical thrombus Restless sleeper Vitamin D deficiency Family History Other No significant family history Social History Smoking Status: Smoker, status unknown tobacco type: cigarettes packs per day: 1 second hand exposure: No alcohol intake: never substance use type: denies use current occupational status: retired Travel in the last 8 weeks: Inside the [place] household members: none housing: house current occupational exposures/hazards: No caffeine: No ROS Obtained: Yes All systems reviewed & no additional complaints except as documented Constitutional Constitutional: Repo
--- NOTE | 2023-02-14 09:33 | PC.NURSE ---
From CT. Light turned off to assist with headache. Pt updated on plan of care. Family remains at bedside.
--- NOTE | 2023-02-14 10:01 | PC.NURSE ---
packing machine operator paging dr. franks
--- NOTE | 2023-02-14 10:02 | PC.NURSE ---
RUSS WILKS speaking with Dr. Villalpando.
--- NOTE | 2023-02-14 10:11 | PC.NURSE ---
RUSS WILKS spoke with Dr. Parrish
--- NOTE | 2023-02-14 10:13 | PC.NURSE ---
waiting safety companion back from housekeeping department worker
--- NOTE | 2023-02-14 10:17 | EXP.HP ---
History of Present Illness *Admission Date: 02/14/23 *Reason for visit:: Fever, chills, redness at pacemaker site. *History of present illness: Mr. Wilhelm is a 67-year-old male with history of CAD, AICD, A-fib, COPD, heart failure with reduced ejection fraction, pulmonary hypertension, hyperlipidemia, and diabetes who presented to the ER with 5 days of fever, chills, headache, nausea. His brother convinced him to come to the ER today after having worsening swelling and redness of his pacemaker pocket, accompanied by systemic symptoms since approximately last . Patient had his REVIEWER SALES-D replaced on 01/22 and was seen last week with removal of tracie from pocket incision. Had been doing well until last when he noticed some tenderness and redness at the site. Over the course the weekend has had worsening headaches, nausea, decreased appetite. Denies any marlen chest pain, vomiting, syncope, dizziness. No reported cough or shortness of breath, URI symptoms. States he has been sleeping in a chair because it is more comfortable mainly from a previous rib fracture. Denies any orthopnea. On arrival to the ER, found to be tachycardic, tachypneic. Labs obtained showing elevated lactate of 4.3, leukocytosis of 12.4. CT of chest obtained showing fluid collection at implanted device. ER initiated sepsis protocol with fluid resuscitation, cultures, antibiotics. Medicine consulted for admission. Case discussed with cardiology upon admission. After arriving to the floor, patient's heart rate is improved to the low 100s. He appears comfortable and in no acute distress. Stable on room air. States that his headache is better after receiving some pain medication in the ER. Brother is at bedside. Patient is ill but nontoxic-appearing [facility] Disclaimer: The information contained in this section may have been updated after the patient was seen, as this information can be updated by other users. Medical History Chest pain CHF (congestive heart failure) Daytime somnolence GERD (gastroesophageal reflux disease) HTN (hypertension) Hyperlipidemia (~05/10/18) Left leg pain Left ventricular apical thrombus Restless sleeper Vitamin D deficiency Surgical History H/O cardiac catheterization History of tonsillectomy Family History Bladder tumor Hyperlipidemia Family history of renal failure Hypertension Stroke Social History Smoking Status: Former smoker second hand exposure: No alcohol intake: current substance use type: denies use current occupational status: retired Travel in the last 8 weeks: Inside the [place] household members: none housing: house current occupational exposures/hazards: No caffeine: No Review of Systems Review of Systems Review of systems (narrative): Review of system *Neurologic Neurologic: Reports system reviewed and no additional complaints, except as documented Meds Home Medications and Allergies Home Medications Medication Instructions Recorded Confirmed Type aspirin 81 mg tablet,delayed 81 mg PO DAILY heart health 10/31/20 02/14/23 History release blood-glucose meter #1 ea 12/11/22 02/14/23 Rx metformin 500 mg tablet 500 mg PO DAILY Diabetes 01/22/23 02/14/23 History furosemide 40 mg tablet (Lasix) 40 mg PO DAILY #30 tabs 01/27/23 02/14/23 Rx metoprolol succinate 50 mg 50 mg PO BID High Blood Pressure 01/27/23 02/14/23 History tablet,extended release 24 hr (Toprol XL) atorvastatin 10 mg tablet 10 mg PO DAILY Cholesterol 02/14/23 02/14/23 History pantoprazole 40 mg tablet,delayed 40 mg PO DAILYP PRN Reflux Symptoms 02/14/23 02/14/23 History release New Prescriptions to Start Prescriptions: Allergies Allergy/AdvReac Type Severity Reaction Status
--- NOTE | 2023-02-14 10:17 | PC.NURSE ---
Patient updated on plan of care. Admission; awaiting room assignment.
--- NOTE | 2023-02-14 10:28 | PC.NURSE ---
notified laborer powerhouse of admission
[2023-02-14 10:30] LABS: Hemoglobin A1C 6.2 % (4.0-6.0)
--- NOTE | 2023-02-14 10:42 | PC.NURSE ---
Report provided to OPAL Luna
--- NOTE | 2023-02-14 10:43 | PC.NURSE ---
Pt updated on plan of care; report called and patient will be transported soon
--- NOTE | 2023-02-14 10:44 | PC.NURSE ---
report taken from OPAL Corcoran in ER, notified REBECCA Reyes to go get pt from ER at this time and pt will be admitted to 209
--- NOTE | 2023-02-14 10:48 | HMH.PHAINT1 ---
Pharmacy Intervention Comments: MEDICATION RECONCILIATION COMPLETED ON PATIENT USING EXTERNAL FILL HISTORY FROM PHARMACY AND LIST FROM CARDIOLOGY OFFICE. -ELVIA ALBERTS, MARTAD
--- NOTE | 2023-02-14 11:11 | PC.NURSE ---
pt admitted to 209 from ER via stretcher
[2023-02-14 11:29] LABS: POC Glucose,Bedside 207 (70-110)
--- NOTE | 2023-02-14 12:14 | EXP.SEPSISRE ---
[facility] Tissue Perfusion Eval Sepsis Re-Evaluation Performed: Yes Date Performed: 02/14/23 Time Performed: 11:48
[2023-02-14 12:24] LABS: Troponin I 0.07 ng/ml (0.00-0.034)
[2023-02-14 12:38] LABS: C-Reactive Protein 200.2 mg/L (0-4)
[2023-02-14 12:41] LABS: Reflex Lactic Add Lactic Reflex
[2023-02-14 14:48] LABS: Lactic Acid Follow Up (RFLX 1) 2.7 mmol/L (0.7-2.1)
[2023-02-14 15:00] LABS: Troponin I 0.05 ng/ml (0.00-0.034)
[2023-02-14 16:06] LABS: POC Glucose,Bedside 167 (70-110)
[2023-02-14 16:37] LABS: Reflex Lactic (2 hrs) Add Lactic Reflex
[2023-02-14 17:18] LABS: Lactic Acid Follow up (RFLX 2) 3.5 mmol/L (0.7-2.1)
[2023-02-14 19:16] LABS: Chloride 99 mmol/L (98-107); Sodium 134 mmol/L (136-145)
[2023-02-14 19:17] LABS: Potassium 3.3 mmoL/L (3.5-5.1)
[2023-02-14 19:19] LABS: Blood Urea Nitrogen 27 mg/dl (9-20); Creatinine Clearance Estimated 136 mL/min (50-200); Estimated Glomerular Filt Rate 74 ml/min (>60); GFR (African American) 90 ML/MIN (>60)
[2023-02-14 19:20] LABS: Anion Gap 14.3 mEq/L (5-15); Calcium 9.1 mg/dl (8.4-10.2); Carbon Dioxide 24 mmol/L (22.0-30.0); Glucose 204 mg/dl (74-100)
[2023-02-14 20:13] LABS: POC Glucose,Bedside 176 (70-110)
[2023-02-15] VITALS (8 sets, daily range): BP systolic 93–126; BP diastolic 52–90; PULSE 55–101; RESP 16–18; TEMP 36.4–37.1; O2SAT 93–97; BMI 39.9
[2023-02-15 06:37] LABS: POC Glucose,Bedside 150 (70-110)
--- NOTE | 2023-02-15 07:28 | PC.NURSE ---
0728 dr franks called and requests cathlab team be paged and have pt ready for pacemaker removal 07 cath lab radiological technologist team paged [phone] enid rn returned page and notified [phone] evelyn rn returned page [phone] amado, radiology returned page
[2023-02-15 07:33] LABS: Basophils % 0.3 % (0.1-2.0); Eosinophils # 0.1 K/mm3 (0.0-0.4); Hematocrit 45.9 % (42.0-52.0); Lymphocytes # 0.5 K/mm3 (0.7-4.5); Lymphocytes % 6.3 % (10-50); Mean Corpuscular HGB Conc 31.7 g/dL (31.8-35.4); Mean Corpuscular Hemoglobin 27.3 pg (27.0-31.2); Mean Platelet Volume 9.7 fl (7.4-10.4); Monocytes # 0.5 K/mm3 (0.1-1.0); Monocytes % 5.9 % (1.7-9.3); Neutrophils % 86.6 % (37.0-80.0); Platelet Count 54 K/mm3 (142-424); Red Blood Count 5.34 M/mm3 (4.60-6.20); Red Cell Distribution Width 14.7 % (11.5-17.5)
[2023-02-15 07:34] LABS: Alanine Aminotransferase 31 U/L (12-78); Albumin/Globulin Ratio 0.9 (1.1-1.8); Alkaline Phosphatase 127 U/L (38-126); Anion Gap 15.1 mEq/L (5-15); Aspartate Amino Transferase 48 U/L (17-59); Bilirubin,Total 1.7 mg/dl (0.2-1.3); Blood Urea Nitrogen 28 mg/dl (9-20); Calcium 8.9 mg/dl (8.4-10.2); Carbon Dioxide 22 mmol/L (22.0-30.0); Chloride 102 mmol/L (98-107); Creatinine Clearance Estimated 134 mL/min (50-200); Estimated Glomerular Filt Rate 84 ml/min (>60); GFR (African American) 102 ML/MIN (>60); Globulin 3.3 g/dL (1.3-3.2); Glucose 165 mg/dl (74-100); Magnesium 1.9 mg/dl (1.6-2.3); Potassium 4.1 mmoL/L (3.5-5.1); Sodium 135 mmol/L (136-145); Total Protein,Serum 6.3 g/dl (6.3-8.2)
[2023-02-15 07:43] LABS: Hemoglobin 14.6 g/dL (14.1-18.0)
[2023-02-15 07:44] LABS: MANUAL DIFFERENTIAL MANUAL DIFFERENTIAL (MANUAL DIFF)
[2023-02-15 07:48] LABS: C-Reactive Protein 250.3 mg/L (0-4)
--- NOTE | 2023-02-15 08:07 | IR_ITS ---
APPROVED REPORT Patient Location: Inpatient PROCEDURES Explantation of cardiac resynchronization therapy with defibrillator Explantation of left ventricular coronary sinus lead Debriding of large pustulant pocket at the pacemaker site Sterile gauze packing of the pacemaker site INDICATION GENETIC PHYSICIAN-D abscess/staph infection, Systolic congestive heart failure Informed consent was obtained prior to the procedure. COMPLICATIONS None Estimated Blood Loss: Less than 10 ML TECHNIQUE Patient was taken to the Assistant Activities Director and sterilely prepped. Anesthesia was provided and 1% lidocaine was used to anesthetize the cutaneous area. A scalpel was used to remove the old incision and a scalpel was then used to dissect into the pocket. A large amount of pustulant fluid was immediately extracted and the soft fluctuant area evacuated. Screwdriver was used to remove all 3 leads from the generator and the generator was removed. Under fluoroscopic guidance the left coronary sinus lead was extracted manually. A scalpel was then used to remove the rubber sleeves on the chronic leads. The chronic leads in the atrium and right ventricle were unscrewed and a small amount of manual extraction was applied which failed to easily dislodge the leads therefore no additional attempt to remove the leads were undertaken. The pocket was flushed with copious saline and numerous gauze pads were used to manually debride the pocket. 1 g of vancomycin was then flushed into the pocket. 10 Ray-Elizabeth were then placed into the pocket and Tegaderm was then used to cover the area. Patient tolerated the procedure well hemodynamically IMPRESSION Successful explantation of GENETIC PHYSICIAN-D device Successful explantation of left coronary sinus lead Successful debridement and packing of an abscess pocket site PLAN 1. Continue IV antibiotics 2. Transfer to [facility] for laser extraction of chronic atrial and right ventricular lead 3. Further care to be determined [facility] Electronically signed by : Santana Beyer MD 02/15/2023 11:09:58
[2023-02-15 08:15] LABS: Lactic Acid 2.2 mmol/L (0.7-2.1)
--- NOTE | 2023-02-15 08:18 | EXP.DC.SUM ---
General Admission date:: 02/14/23 Discharge date: 02/15/23 HPI HPI HPI: Mr. Wilhelm is a 67-year-old male with history of CAD, AICD, A-fib, COPD, heart failure with reduced ejection fraction, pulmonary hypertension, hyperlipidemia, and diabetes who presented to the ER with 5 days of fever, chills, headache, nausea. His brother convinced him to come to the ER today after having worsening swelling and redness of his pacemaker pocket, accompanied by systemic symptoms since approximately last . Patient had his MIDDLEWARE SOLUTIONS ARCHITECT-D replaced on 01/22 and was seen last week with removal of tracie from pocket incision. Had been doing well until last when he noticed some tenderness and redness at the site. Over the course the weekend has had worsening headaches, nausea, decreased appetite. Denies any marlen chest pain, vomiting, syncope, dizziness. No reported cough or shortness of breath, URI symptoms. States he has been sleeping in a chair because it is more comfortable mainly from a previous rib fracture. Denies any orthopnea. On arrival to the ER, found to be tachycardic, tachypneic. Labs obtained showing elevated lactate of 4.3, leukocytosis of 12.4. CT of chest obtained showing fluid collection at implanted device. ER initiated sepsis protocol with fluid resuscitation, cultures, antibiotics. Medicine consulted for admission. Case discussed with cardiology upon admission. After arriving to the floor, patient's heart rate is improved to the low 100s. He appears comfortable and in no acute distress. Stable on room air. States that his headache is better after receiving some pain medication in the ER. Brother is at bedside. Patient is ill but nontoxic-appearing Initial pacer defibrillator placed in 2017. 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 Hospital Course Hospital Course Hospital Course: 67-year-old male with multiple comorbidities, heart failure with reduced ejection fraction and MIDDLEWARE SOLUTIONS ARCHITECT-D in place. Presented to the ER with symptoms consistent with septic shock including tachycardia, tachypnea, leukocytosis, infection with abscess at pacemaker pocket. Lactate 4.3. Initiated on IV bolus with normal saline, Zosyn and vancomycin started in the ER. Patient admitted to medicine for management overnight. Patient remained hemodynamically stable, tachycardia improving but still frankly tachycardic above 90. Lactate improved with fluid resuscitation. Blood cultures, positive at 12 to 14 hours (staph with MEC a gene). Taken to Computer Installer on 02/15 for explantation of pacemaker and source control. Unfortunately patient has wires that have been in place since 2018. These will necessitate removal that we are unable to perform at our institution. Transfer requested for for further management. Graciously excepted, transferring to CCU. Problems addressed as follows: Septic shock Chest wall abscess/cellulitis Staph bacteremia Infected hardware -Septic shock criteria: Leukocytosis 12.4, tachycardia greater than 90, tachypnea greater than 20, infection site left chest wall, lactic 4.3. Blood cultures obtained that returned positive at 12 to 14 hours for Staph aureus, MEC-a positive. Cardiology was consulted. Given patient's sepsis, source of infection, decision made to perform explantation of BiV pacer/MIDDLEWARE SOLUTIONS ARCHITECT-D on 02/14. See the report for full details. Generator and LV wire removed at this time. Significant brown purulent material removed from pocket. Pocket was packed with sterile gauze. Morning labs showed improvement in white cell count from 12.4-8. Lactate 2.2 morning of 02/15. Patient remained afebrile during hospitalization. In light of his bacteremia, sepsis, source of infection and concern for seeded hardware needing removal outside our capacity, transfer was requested. Continuing vancomycin and Zosyn at this time. Heart failure with reduced ejection A-
[2023-02-15 08:37] LABS: Lymphocytes % 5 % (10-50); Monocytes % 7 % (2-9); Neutrophils % 88 % (42-76); Total Cells Counted 100
[2023-02-15 08:41] LABS: Platelet Estimate Moderate Decrease
[2023-02-15 08:44] LABS: RBC Morphology Normal; Toxic Granulation 1+
[2023-02-15 11:23] LABS: Reflex Lactic Add Lactic Reflex
== END 2023-02-15 11:50 | disposition short-term general hospital (02) | DRG 260 ==
LOC: ER 10:15 → 2ND 10:39
PROVIDERS: Internal Medicine; Admitting Provider Internal Medicine Adolescent Medicine; Emergency Provider Emergency Medicine; Visit Provider Internal Medicine Adolescent Medicine
PROC: 02PA3MZ Removal of Cardiac Lead from Heart, Percutaneous Approach (ICD-10-PCS; principal; 2023-02-15 08:00)
DX: T82.7XXA Infection and inflammatory reaction due to other cardiac and vascular devices, implants and grafts, initial encounter (principal); A41.9 Sepsis, unspecified organism; I21.A1 Myocardial infarction type 2; R65.21 Severe sepsis with septic shock; L02.213 Cutaneous abscess of chest wall; L03.313 Cellulitis of chest wall; Z68.41 Body mass index [BMI] 40.0-44.9, adult; I50.22 Chronic systolic (congestive) heart failure; I48.91 Unspecified atrial fibrillation; J44.9 Chronic obstructive pulmonary disease, unspecified; E66.9 Obesity, unspecified; E11.8 Type 2 diabetes mellitus with unspecified complications; I25.10 Atherosclerotic heart disease of native coronary artery without angina pectoris; Z79.4 Long term (current) use of insulin; I27.20 Pulmonary hypertension, unspecified; K21.9 Gastro-esophageal reflux disease without esophagitis; D69.6 Thrombocytopenia, unspecified; Y83.1 Surgical operation with implant of artificial internal device as the cause of abnormal reaction of the patient, or of later complication, without mention of misadventure at the time of the procedure; F17.210 Nicotine dependence, cigarettes, uncomplicated; I11.0 Hypertensive heart disease with heart failure
CPT/HCPCS: 33241; 33272; 36415; 71260; 80048; 80053; 82962; 83036; 83605; 83735; 83880; 84484; 85007; 85025; 86140; 87040; 87077; 87186; 93005; 99152; 99153; 99291; J2543; Q9967

== ENCOUNTER → 2023-03-06 08:42 | Outpatient (CLI) | payer MEDICARE, MEDICAID, SELFPAY ==
[2023-03-06 08:57] LABS: Basophils # 0.1 K/mm3 (0-0.2); Basophils % 1.4 % (0.1-2.0); Eosinophils # 0.3 K/mm3 (0.0-0.4); Eosinophils % 6.4 % (0.1-12.0); Hematocrit 45.2 % (42.0-52.0); Hemoglobin 14.6 g/dL (14.1-18.0); Lymphocytes # 1.4 K/mm3 (0.7-4.5); Lymphocytes % 27.8 % (10-50); Mean Corpuscular HGB Conc 32.3 g/dL (31.8-35.4); Mean Corpuscular Hemoglobin 27.8 pg (27.0-31.2); Mean Corpuscular Volume 86.2 fl (80-94); Mean Platelet Volume 7.8 fl (7.4-10.4); Monocytes # 0.4 K/mm3 (0.1-1.0); Monocytes % 7.8 % (1.7-9.3); Neutrophils # 2.9 K/mm3 (1.8-7.8); Neutrophils % 56.6 % (37.0-80.0); Platelet Count 180 K/mm3 (142-424); Red Blood Count 5.24 M/mm3 (4.60-6.20); Red Cell Distribution Width 15.6 % (11.5-17.5); White Blood Count 5.2 K/mm3 (4.8-10.8)
[2023-03-06 09:21] LABS: Alanine Aminotransferase 31 U/L (12-78); Albumin Level 3.8 g/dl (3.5-5.0); Alkaline Phosphatase 159 U/L (38-126); Anion Gap 16.9 mEq/L (5-15); Aspartate Amino Transferase 44 U/L (17-59); Bilirubin,Direct 0.1 mg/dl (0.0-0.4); Bilirubin,Indirect 0.7 mg/dL (0.0-0.9); Bilirubin,Total 0.8 mg/dl (0.2-1.3); Bilirubin,Unconjugated 0.7 mg/dL (0.0-1.1); Blood Urea Nitrogen 15 mg/dl (9-20); Carbon Dioxide 20 mmol/L (22.0-30.0); Chloride 106 mmol/L (98-107); Chol/HDL Ratio 3.3 (1-3.5); Cholesterol 139 mg/dl (140-200); Estimated Glomerular Filt Rate 96 ml/min (>60); GFR (African American) 116 ML/MIN (>60); Glucose 117 mg/dl (74-100); HDL Cholesterol 42 mg/dl (40-60); Magnesium 1.7 mg/dl (1.6-2.3); Potassium 3.9 mmoL/L (3.5-5.1); Sodium 139 mmol/L (136-145); Total Protein,Serum 7.8 g/dl (6.3-8.2); Triglycerides 102 mg/dl (30-150); VLDL Cholesterol 20 mg/dL (0-40)
[2023-03-06 09:30] LABS: NT Pro Brain Natriuretic Pep. 1800 pg/mL (0-125)
[2023-03-06 09:31] LABS: Direct LDL Cholesterol 71.04 mg/dL (100-129)
[2023-03-06 09:37] LABS: Free T4 (Free Thyroxine) 2.76 ng/dl (0.78-2.19)
[2023-03-06 09:52] LABS: Thyroid Stimulating Hormone < 0.02 uIU/mL (0.465-4.68)
== END ==
PROVIDERS: PCP Emergency Medicine; Visit Provider Physician Assistant
DX: E66.9 Obesity, unspecified; I11.0 Hypertensive heart disease with heart failure; I25.10 Atherosclerotic heart disease of native coronary artery without angina pectoris; I27.20 Pulmonary hypertension, unspecified; I50.20 Unspecified systolic (congestive) heart failure; I63.9 Cerebral infarction, unspecified; J44.9 Chronic obstructive pulmonary disease, unspecified; Z95.810 Presence of automatic (implantable) cardiac defibrillator; E11.9 Type 2 diabetes mellitus without complications; Z68.31 Body mass index [BMI] 31.0-31.9, adult; R06.09 Other forms of dyspnea
CPT/HCPCS: 36415; 80048; 80061; 80076; 83735; 83880; 84439; 84443; 85025

== ENCOUNTER 2023-03-26 15:30 | Outpatient (RCR) | payer MEDICARE, MEDICAID, SELFPAY | END 2023-03-26 15:35 | disposition home or self-care (01) | LOC: PT 15:30 | PROVIDERS: PCP Internal Medicine; Visit Provider Internal Medicine | DX: L08.9 Local infection of the skin and subcutaneous tissue, unspecified (principal); A41.02 Sepsis due to Methicillin resistant Staphylococcus aureus | CPT/HCPCS: 97163; 97597; 97605 ==

== ENCOUNTER → 2023-05-06 23:38 | Outpatient (CLI) | payer MEDICARE, MEDICAID, SELFPAY ==
[2023-05-06 20:52] LABS: Free Thyroxine Index 5.1 ug/dL (5.93-13.13); T4 (Thyroxine) 12.8 ug/dl (5.53-11.0); Triiodothryronine (T3) Uptake 40 % (23.5-40.5)
[2023-05-06 21:06] LABS: Prostate Specific Ag Screen 1.4 ng/ml (0.0-4.0); Thyroid Stimulating Hormone < 0.02 uIU/mL (0.465-4.68)
== END ==
PROVIDERS: PCP Emergency Medicine; Visit Provider Emergency Medicine
DX: I11.9 Hypertensive heart disease without heart failure (principal); Z12.5 Encounter for screening for malignant neoplasm of prostate; Z87.891 Personal history of nicotine dependence; E05.90 Thyrotoxicosis, unspecified without thyrotoxic crisis or storm
CPT/HCPCS: 84436; 84443; 84479; G0103

== ENCOUNTER 2023-10-21 07:18 | Outpatient (CLI) | payer MEDICARE, MEDICAID, SELFPAY ==
[2023-10-21 07:47] LABS: Basophils # 0.2 K/mm3 (0-0.2); Basophils % 1.9 % (0.1-2.0); Eosinophils # 0.3 K/mm3 (0.0-0.4); Eosinophils % 4.2 % (0.1-12.0); Hematocrit 53.9 % (42.0-52.0); Hemoglobin 17.8 g/dL (14.1-18.0); Lymphocytes # 2.3 K/mm3 (0.7-4.5); Lymphocytes % 28.6 % (10-50); Mean Corpuscular Hemoglobin 30.6 pg (27.0-31.2); Mean Corpuscular Volume 92.5 fl (80-94); Mean Platelet Volume 8.2 fl (7.4-10.4); Monocytes # 0.7 K/mm3 (0.1-1.0); Monocytes % 8.8 % (1.7-9.3); Neutrophils # 4.6 K/mm3 (1.8-7.8); Neutrophils % 56.4 % (37.0-80.0); Platelet Count 148 K/mm3 (142-424); Red Blood Count 5.83 M/mm3 (4.60-6.20); Red Cell Distribution Width 13.8 % (11.5-17.5); White Blood Count 8.1 K/mm3 (4.8-10.8)
[2023-10-21 08:12] LABS: Chloride 108 mmol/L (98-107); Potassium 4.3 mmoL/L (3.5-5.1); Sodium 138 mmol/L (136-145)
[2023-10-21 08:14] LABS: Alanine Aminotransferase 32 U/L (12-78); Alkaline Phosphatase 101 U/L (38-126); Aspartate Amino Transferase 38 U/L (17-59); Blood Urea Nitrogen 22 mg/dl (9-20); Estimated Glomerular Filt Rate 66 ml/min (>60); GFR (African American) 80 ML/MIN (>60)
[2023-10-21 08:15] LABS: Albumin/Globulin Ratio 1.3 (1.1-1.8); Anion Gap 9.3 mEq/L (5-15); Carbon Dioxide 25 mmol/L (22.0-30.0); Chol/HDL Ratio 4.2 (1-3.5); Cholesterol 234 mg/dl (140-200); Globulin 3.1 g/dL (1.3-3.2); Glucose 117 mg/dl (74-100); HDL Cholesterol 56 mg/dl (40-60); Total Protein,Serum 7.1 g/dl (6.3-8.2); Triglycerides 95 mg/dl (30-150); VLDL Cholesterol 19 mg/dL (0-40)
[2023-10-21 08:26] LABS: Direct LDL Cholesterol 133.02 mg/dL (100-129)
[2023-10-21 09:25] LABS: Thyroid Stimulating Hormone < 0.02 uIU/mL (0.465-4.68)
[2023-10-21 10:38] LABS: 25-OH Vitamin D, Total 36.6 ng/mL (30-100)
[2023-10-22 10:09] LABS: Triiodothyronine (T3) Free 3.1 pg/mL (2.0-4.4)
== END 2023-10-21 23:59 | disposition home or self-care (01) ==
PROVIDERS: PCP Nurse Practitioner Family; Visit Provider Nurse Practitioner Family
DX: E05.90 Thyrotoxicosis, unspecified without thyrotoxic crisis or storm (principal); E03.9 Hypothyroidism, unspecified; D69.6 Thrombocytopenia, unspecified; R71.8 Other abnormality of red blood cells; R73.9 Hyperglycemia, unspecified; E66.9 Obesity, unspecified; Z68.32 Body mass index [BMI] 32.0-32.9, adult; Z79.899 Other long term (current) drug therapy
CPT/HCPCS: 36415; 80053; 80061; 82306; 84439; 84443; 84481; 85025

== ENCOUNTER 2023-11-11 14:54 | Outpatient (CLI) | payer MEDICARE, MEDICAID, SELFPAY ==
--- NOTE | 2023-11-11 14:55 | US_ITS ---
FINAL REPORT CLINICAL HISTORY: Hypothyroidism COMPARISON: 12/28/2019 FINDINGS: Sonographic images of the thyroid gland were obtained. The right thyroid lobe measures 5.6 cm. in length. The left thyroid lobe measures 5.3 cm. in length. The thyroid isthmus measures 0.42 cm. in thickness. The echogenicity of the thyroid gland is diffusely heterogeneous. There is a dominant nodule in the left lobe of the thyroid gland, 19 x 8 x 7 mm in size, solid, hypoechoic, TI-RADS category 4 nodule. This nodule has increased in size when compared to the prior exam of 2019. IMPRESSION: Diffusely heterogeneous thyroid gland, with a dominant nodule in the left lobe as described above, a TI-RADS category 4 nodule. Would recommend given size and enlargement since the prior exam of 2019 ultrasound-guided FNA. Reviewed, Interpreted and Dictated by Jose Manuel Rivera III, MD Transcribed by Arlin Jordan Authenticated and [facility]
== END 2023-11-11 23:59 | disposition home or self-care (01) ==
LOC: RAD 14:55
PROVIDERS: PCP Nurse Practitioner Family; Visit Provider Nurse Practitioner Family
DX: E03.9 Hypothyroidism, unspecified (principal)
CPT/HCPCS: 76536

== ENCOUNTER 2024-06-16 15:11 | Outpatient (CLI) | payer MEDICARE, MEDICAID, SELFPAY ==
[2024-06-16 18:30] LABS: Alanine Aminotransferase 36 U/L (12-78); Albumin Level 4.5 g/dl (3.5-5.0); Albumin/Globulin Ratio 1.4 (1.1-1.8); Alkaline Phosphatase 86 U/L (38-126); Aspartate Amino Transferase 49 U/L (17-59); Bilirubin,Total 0.7 mg/dl (0.2-1.3); Blood Urea Nitrogen 21 mg/dl (9-20); Calcium 9.5 mg/dl (8.4-10.2); Carbon Dioxide 25 mmol/L (22.0-30.0); Chloride 107 mmol/L (98-107); Estimated Glomerular Filt Rate 60 ml/min (>60); GFR (African American) 73 ML/MIN (>60); Globulin 3.2 g/dL (1.3-3.2); Glucose 131 mg/dl (74-100); Sodium 140 mmol/L (136-145); Total Protein,Serum 7.7 g/dl (6.3-8.2)
[2024-06-16 18:48] LABS: Free Thyroxine Index 2.7 ug/dL (5.93-13.13); T4 (Thyroxine) 7.9 ug/dl (5.53-11.0); Triiodothryronine (T3) Uptake 34 % (23.5-40.5)
[2024-06-16 18:50] LABS: Hemoglobin A1C 6.7 % (4.0-6.0)
[2024-06-16 19:01] LABS: Thyroid Stimulating Hormone 0.87 uIU/mL (0.465-4.68)
== END 2024-06-16 23:59 | disposition home or self-care (01) ==
LOC: LAB.DROPOF 06-17 11:07
PROVIDERS: PCP Family Medicine; Visit Provider Family Medicine
DX: Z00.00 Encounter for general adult medical examination without abnormal findings (principal); E05.90 Thyrotoxicosis, unspecified without thyrotoxic crisis or storm; E11.9 Type 2 diabetes mellitus without complications
CPT/HCPCS: 80053; 83036; 84436; 84443; 84479

== ENCOUNTER 2024-11-03 15:13 | Outpatient (CLI) | payer MEDICARE, MEDICAID, SELFPAY ==
[2024-11-03 18:28] LABS: Basophils # 0.1 K/mm3 (0-0.2); Eosinophils # 0.3 Kmm3 (0.0-0.4); Eosinophils % 2.9 % (0.1-12.0); Hematocrit 51.1 % (42.0-52.0); Hemoglobin 17.5 g/dL (14.1-18.0); Lymphocytes # 2.1 K/mm3 (0.7-4.5); Lymphocytes % 22.7 % (10-50); Mean Corpuscular HGB Conc 34.2 g/dL (31.8-35.4); Mean Corpuscular Hemoglobin 29.8 pg (27.0-31.2); Mean Corpuscular Volume 87.1 fl (80-94); Mean Platelet Volume 10.3 fl (7.4-10.4); Monocytes # 0.8 K/mm3 (0.1-1.0); Monocytes % 9.1 % (1.7-9.3); Neutrophils # 5.9 K/mm3 (1.8-7.8); Neutrophils % 64.1 % (37.0-80.0); Nucleated Red Blood Cells # 0 10^3/uL; Nucleated Red Blood Cells % 0 %; Platelet Count 163 K/mm3 (142-424); Red Blood Count 5.87 M/mm3 (4.60-6.20); Red Cell Distribution Width 12.9 % (11.5-17.5); Red Cell Distribution Width-SD 40.9 fL; White Blood Count 9.2 K/mm3 (4.8-10.8)
[2024-11-03 18:50] LABS: Hemoglobin A1C 7.4 % (4.0-6.0)
[2024-11-03 19:03] LABS: Alanine Aminotransferase 27 U/L (12-78); Albumin Level 4.4 g/dl (3.5-5.0); Albumin/Globulin Ratio 1.6 (1.1-1.8); Alkaline Phosphatase 95 U/L (38-126); Anion Gap 9.5 mEq/L (5-15); Aspartate Amino Transferase 31 U/L (17-59); Bilirubin,Total 0.7 mg/dl (0.2-1.3); Blood Urea Nitrogen 22 mg/dl (9-20); Calcium 9.9 mg/dl (8.4-10.2); Carbon Dioxide 22 mmol/L (22.0-30.0); Chloride 105 mmol/L (98-107); Chol/HDL Ratio 5.2 (1-3.5); Cholesterol 229 mg/dl (140-200); Estimated Glomerular Filt Rate 74 ml/min (>60); GFR (African American) 89 ML/MIN (>60); Globulin 2.8 g/dL (1.3-3.2); Glucose 114 mg/dl (74-100); HDL Cholesterol 44 mg/dl (40-60); Potassium 4.5 mmoL/L (3.5-5.1); Sodium 132 mmol/L (136-145); Total Protein,Serum 7.2 g/dl (6.3-8.2); Triglycerides 168 mg/dl (30-150); VLDL Cholesterol 34 mg/dL (0-40)
[2024-11-03 19:15] LABS: NT Pro Brain Natriuretic Pep. 395 pg/mL (0-125)
[2024-11-03 19:28] LABS: Free Thyroxine Index 2.8 ug/dL (5.93-13.13); T4 (Thyroxine) 8.1 ug/dl (5.53-11.0); Triiodothryronine (T3) Uptake 35 % (23.5-40.5)
[2024-11-03 19:36] LABS: Thyroid Stimulating Hormone 0.82 uIU/mL (0.465-4.68)
[2024-11-03 19:37] LABS: 25-OH Vitamin D, Total 80.6 ng/mL (30-100)
[2024-11-03 19:41] LABS: Thyroid Stimulating Hormone 0.87 uIU/mL (0.465-4.68)
--- OUTSIDE RECORDS SUMMARY | 2024-11-04 12:50 | XMS_ITS ---
Author Organization Unknown TREATMENT PLAN [facility] Start Date Provider Encounter for Check-up [phone] [facility]
== END 2024-11-03 23:59 | disposition home or self-care (01) ==
LOC: LAB.DROPOF 11-04 12:48
PROVIDERS: PCP Family Medicine; Visit Provider Family Medicine
DX: I27.20 Pulmonary hypertension, unspecified (principal); I25.10 Atherosclerotic heart disease of native coronary artery without angina pectoris; E05.90 Thyrotoxicosis, unspecified without thyrotoxic crisis or storm; E03.9 Hypothyroidism, unspecified; E11.9 Type 2 diabetes mellitus without complications; E55.9 Vitamin D deficiency, unspecified; R06.02 Shortness of breath
CPT/HCPCS: 80053; 80061; 82306; 83036; 83880; 84436; 84443; 84479; 85025

== ENCOUNTER 2024-11-14 07:51 | Outpatient (CLI) | payer MEDICARE, MEDICAID, SELFPAY ==
--- NOTE | 2024-11-14 08:00 | US_ITS ---
FINAL REPORT CLINICAL HISTORY: abn thyroid us -- lt thyroid nodule -- lt thyroid fna -- venkata DIAZ FINDINGS: Ultrasound guided thyroid biopsy. HISTORY: Thyroid mass. Attending radiologist: Dr. Barfield Physician Ballistician: Venkata Grady PA-C PROCEDURE: After informed consent was obtained and a time-out was performed, the patient was prepped and draped in usual sterile fashion over the left neck. Utilizing local anesthesia and sterile technique with a 25-gauge needle, access to lesion was obtained. A total of 4 passes were made under direct ultrasound guidance. The patient received no conscious sedation. The patient tolerated procedure well and left the department in good condition. IMPRESSION: Status post ultrasound guided biopsy of thyroid without immediate complication. Reviewed, Interpreted and Dictated by Cas Barfield MD Transcribed by JOE Erickson Authenticated and [facility]
== END 2024-11-14 23:59 | disposition home or self-care (01) ==
LOC: RAD 07:51
PROVIDERS: PCP Family Medicine; Visit Provider Family Medicine
DX: R93.89 Abnormal findings on diagnostic imaging of other specified body structures (principal); E04.1 Nontoxic single thyroid nodule
CPT/HCPCS: 76942; 88173; 88305

== ENCOUNTER 2024-11-16 14:58 | Outpatient (CLI) | payer MEDICARE, MEDICAID, SELFPAY ==
--- NOTE | 2024-11-16 15:01 | CA_ITS ---
APPROVED REPORT EXAM: Comprehensive 2D, Doppler, and color-flow Echocardiogram Director Biomedical Engineering: Rosalina Jesus RVT Ht: 6 ft 0 in Wt: 270lbs BSA: 2.42 BP: 116/72 mmHg Indications: SOA,A-FIB,CASSANDRA CLIP,HX LV THROMBUS,HX LV ANEURYSM,DM,EX SMOKER Echo Enhancing Agent Indication: Endocardial border delineation Agent(s) / Amount(s) Used: Definity 2 cc 2D Dimensions LA Volume 49.80 mL LA Volume Index 20.58 mL/m2 (M/F) 16-34 M-Mode Dimensions RVDd 4.56 cm (0.9-2.6) LA Diam 4.05 cm (1.9-4.0) LVDd 4.23 cm (3.5-5.7) LVDs 3.34 cm (3.5-5.7) IVSd 1.22 cm (0.6-1.1) PWd 0.52 cm (0.6-1.1) EF (Teich) 43.20% FS 21.00% EDV (Teich) 79.90 mL TAPSE 1.51 (<1.7) ESV (Teich) 45.40 mL Aortic Valve SCOTT Index 1.94 cm2/m2 AoV Peak Quinn. 82.0 (50-130 cm/s) AO Peak GR. 2.70 mmHg AO Mean GR. 1.60 (<5 mmHg) AO VTI 12.7 (18-25 cm) SCOTT (VTI) 4.80 (2.5-4.5 cm2) Pulmonary Valve PV Peak Velocity 60.0 (50-150 cm/s) Tricuspid Valve TR P. Velocity 241.00 cm/s RAP Estimate 10.00 mmHg RVSP 33.20 mmHg Left Ventricle The left ventricle is normal size. 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 Left ventricular systolic function is mildly decreased. There is increased LV wall thickness. There is mild global hypokinesis. There is severe hypokinesis of the distal inferoseptal LV wall, as well as the LV apex. Grade 1 diastolic dysfunction is present. No left ventricle thrombus noted on this study. LVEF is 40-45%. Right Ventricle The right ventricle is moderately dilated. Right ventricle is mildly hypokinetic. Atria The left atrium is mildly dilated. Right atrium is mildly dilated. There is no Doppler evidence of interatrial shunt. Aortic Valve The aortic valve is mildly thickened. Trace aortic regurgitation. There is no aortic valvular stenosis. Mitral Valve The mitral valve is normal in structure. No evidence of mitral valve stenosis. Mild mitral regurgitation. Tricuspid Valve Tricuspid valve is grossly normal in structure and function. Moderate tricuspid regurgitation. RVSP 25-30 mmHg. Trace pulmonic regurgitation. Pulmonic Valve The pulmonary valve is normal in structure. Great Vessels The aortic root is normal in size. IVC is normal in size and collapses >50% with inspiration. Pericardium There is no pericardial effusion. Other Information Study Quality: Fair Conclusion Mildly reduced LV systolic function (LVEF 40-45%). 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 Severe hypokinesis of the distal inferoseptal LV wall, as well as the LV apex. Moderately dilated RV with mild reduction in RV function. Biatrial dilation. Moderate TR. Mild MR. No evidence of LV thrombus. Electronically signed by : Richelle Mullen MD 11/23/2024 14:49:52
[2024-11-16] MEDS: DEFINITY US ECHO CONTRAST 2ML INJ 2 MG IV (15:53)
== END 2024-11-16 23:59 | disposition home or self-care (01) ==
LOC: RT 14:58
PROVIDERS: PCP Family Medicine; Visit Provider Family Medicine
DX: I08.1 Rheumatic disorders of both mitral and tricuspid valves (principal); R93.1 Abnormal findings on diagnostic imaging of heart and coronary circulation; I50.20 Unspecified systolic (congestive) heart failure; I27.20 Pulmonary hypertension, unspecified; E11.9 Type 2 diabetes mellitus without complications; Z95.818 Presence of other cardiac implants and grafts; Z87.891 Personal history of nicotine dependence
CPT/HCPCS: 93306; Q9957

== ENCOUNTER 2024-11-24 08:35 | Outpatient (CLI) | payer MEDICARE, MEDICAID, SELFPAY ==
[2024-11-24 09:08] LABS: D-Dimer 0.87 ug/mL (0.0-0.5)
== END 2024-11-24 23:59 | disposition home or self-care (01) ==
LOC: LAB 08:35
PROVIDERS: PCP Family Medicine; Visit Provider Family Medicine
DX: R94.31 Abnormal electrocardiogram [ECG] [EKG] (principal)
CPT/HCPCS: 36415; 85378

== ENCOUNTER 2025-05-18 09:06 | Outpatient (CLI) | payer MEDICARE, SELFPAY ==
[2025-05-18 15:47] LABS: Alanine Aminotransferase 32 U/L (12-78); Albumin Level 4.3 g/dl (3.5-5.0); Albumin/Globulin Ratio 1.4 (1.1-1.8); Alkaline Phosphatase 97 U/L (38-126); Anion Gap 11.3 mEq/L (5-15); Aspartate Amino Transferase 34 U/L (17-59); Bilirubin,Total 0.9 mg/dl (0.2-1.3); Blood Urea Nitrogen 12 mg/dl (9-20); Calcium 9.1 mg/dl (8.4-10.2); Carbon Dioxide 22 mmol/L (22.0-30.0); Chloride 107 mmol/L (98-107); Cholesterol 174 mg/dl (140-200); Creatinine,Serum 1.00 mg/dl (0.66-1.25); Estimated Glomerular Filt Rate 74 ml/min (>60); GFR (African American) 89 ML/MIN (>60); Globulin 3.0 g/dL (1.3-3.2); Glucose 128 mg/dl (74-100); HDL Cholesterol 44 mg/dl (40-60); Potassium 4.3 mmoL/L (3.5-5.1); Sodium 136 mmol/L (136-145); Total Protein,Serum 7.3 g/dl (6.3-8.2); Triglycerides 128 mg/dl (30-150)
[2025-05-18 15:53] LABS: Hemoglobin A1C 7.1 % (4.0-6.0)
== END 2025-05-18 23:59 | disposition home or self-care (01) ==
LOC: LAB.DROPOF 05-22 09:06
PROVIDERS: PCP Family Medicine; Visit Provider Family Medicine
DX: E11.8 Type 2 diabetes mellitus with unspecified complications (principal); Z12.5 Encounter for screening for malignant neoplasm of prostate
CPT/HCPCS: 80053; 80061; 83036; G0103

== ENCOUNTER 2025-06-08 12:08 | Outpatient (CLI) | payer MEDICARE, SELFPAY ==
--- OUTSIDE RECORDS SUMMARY | 2025-06-08 12:15 | XMS_ITS | Encounter Summary ---
Author Organization Healthcare Address [address] [id number] Care Team Providers Care Heel Coverer Name Role Phone David Domingo MD Primary Care Provider [phone] Meenakshi Carlos LPN Unavailable Unavailabl e Encounter Details Date Type Department Care Team (Late st Contact Info) Description 12/08/2022 Orders Only External Location [address] [place] [address] Janet Franco, PHOTO MASK CLEANER [address] [facility] [address] [place] [address] [place] [address] Social History Tobacco Use Types Packs/Day Years Used Date Smoking Tobacco: Every Day Alcohol Use Standard Drinks/Week Comments Yes 0 (1 standard drink = 0.6 oz pur e alcohol) Sex and Gender Information Value Date Recorded Sex Assigned at Not on file Legal Sex Male 7:14 PM EDT Gender Identity Not on file Sexual Orientation Not on file documented as of this encounter Plan of Treatment Not on file documented as of this encounter Procedures Procedure Name Priority Date/Time Associated Diagnosis Comments US OUTSIDE IMAGES 12/08/2022 10:46 AM EDT documented in this encounter Results * US OUTSIDE IMAGES (12/08/2022 10:46 AM EDT) Anatomical Region Laterality Modality Ultrasound 12/08/2022 10:4 6 AM EDT us Janet Franco PHOTO MASK CLEANER IMG US PROCEDURES Chandni l Result documented in this encounter Visit Diagnoses Not on filedocumented in this encounter Additional Health Concerns Infection Onset Date Last Indicated Resolved Time MRSA 02/15/2023 02/26/2023 C. difficile Rule-Out 02/18/2023 02/19/20232022 11:05 AM EDT ESBL 02/26/2023 02/26/2023 VISA Comment:Swab of pacemaker pocked Collected 8.24.23 Vancomycin 3.0 ug/ml - Intermediate 02/26/2023 03/03/2023 documented as of this encounter Care Teams Heel Coverer Relationship Specialty Start Date End Date David Domingo MD [address] [place] [address] PCP - General 11/16/20 Meenakshi Carlos LPN VALUE-BASED [place] [address] None TCM Nurse 03/06/23 04/02/23 documented as of this encounter
--- OUTSIDE RECORDS SUMMARY | 2025-06-08 12:15 | XMS_ITS | Clinical Summary ---
Author Organization [facility] Address [address] [facility] [address] [place] [address] Phone Care Team Providers Care Medical Aide Name Role Phone Unavailable Primary Care Provider Unavailabl e Social History Tobacco Use Types Packs/Day Years Used Date Smoking Tobacco: Never Assessed Sex and Gender Information Value Date Recorded Sex Assigned at Not on file Legal Sex Male 8:33 AM EDT Gender Identity Not on file Sexual Orientation Not on file Plan of Treatment Health Maintenance Due Date Last Done Comments Annual Wellness Exam 1958 Hepatitis C Screening 1972 DTaP/TDaP/Td (1 - Tdap) 1973 Cologuard 09/09/1999 Colon Cancer Screening 09/09/1999 Colonoscopy 09/09/1999 FIT 09/09/1999 Sigmoidoscopy 09/09/1999 Virtual Colonography 09/09/1999 Pneumococcal Vaccine 50+ (2 of 2 - PCV) 10/24/2019 10/23/2018, 08/09/2018 Hepatitis B Vaccine (2 of 3 - 19+ 3-dose series) 12/12/2020 11/14/2020 Zoster (2 of 2) 01/13/2023 11/18/2022 COVID-19 Vaccine ( - season) 2025 04/16/2023, 06/07/2021, 10/03/2020, Additional history exists Influenza Vaccine (#1) 2025 , 04/03/2021, 04/19/2020, Additional history exists Meningococcal B Vaccine Aged Out No l onger eligible based on patient's age to complete this topic
--- OUTSIDE RECORDS SUMMARY | 2025-06-08 12:15 | XMS_ITS | Clinical Summary ---
[facility] Address [address] [place] [address] Care Team Providers Care Driver License Agent Name Role Phone David Domingo MD Primary Care Provider + [phone] Allergies Active Allergy Reactions Criticality Noted Date Comments Lisinopril Angioedema High 10/23/2018 Medications aspirin 81 MG EC tablet Take 1 tablet (81 mg) by mouth 1 (one) time each day. Active metoprolol succinate XL (Toprol-XL) 25 MG 24 hr tablet Take 1 tablet (25 mg) by mouth 1 (one) time each day. Do not crush or chew. 30 tablet 03/03/2023 Active atorvastatin (Lipitor) 10 MG tablet Take 1 tablet (10 mg) by mouth every night. 30 tablet 03/02/2023 Active dapagliflozin (Farxiga) 10 MG tabletIndicatio ns:Left Systolic Heart Failure,Type 2 Diabetes Mellitus Take 1 tablet (10 mg) by mouth 1 (one) time each day. 30 tablet 03/03/2023 Active spironolactone (Aldactone) 25 MG tablet Take 0.5 tablets (12.5 mg) by mouth 1 (one) time each day. 30 each 03/03/2023 Active furosemide (Lasix) 40 MG tablet Take 1 tablet (40 mg) by mouth 1 (one) time each day if needed (weight gain of 2 pounds in 1 day or 5 pounds in 1 week). 30 tablet 03/02/2023 Active losartan (Cozaar) 25 MG tablet Take 1 tablet (25 mg) by mouth 1 (one) time each day. 30 tablet 03/02/2023 Active pantoprazole (Protonix) 40 MG EC tablet TAKE 1 TABLET BY MOUTH DAILY NEEDED FOR GERD 11/24/2022 Active Empagliflozin (JARDIANCE PO) Take by mouth. Active miconazole (Lotrimin AF) 2 % powder Apply to affected twice per for 10 days 43 g 03/10/2023 Active Active Problems Problem Noted Date Diagnosed Date ICD (implantable cardioverte r-defibrillator) infection, subsequent encounter 03/10/2023 Left ventricular thrombus 03/02/2023 Resolved Problems Problem Noted Date Diagnosed Date Resolved Date MRSA bacteremia 03/10/2023 03/26/2025 Pacemaker electrode infection 02/16/2023 03/02/2023 Sepsis 02/15/2023 03/02/2023 Immunizations Immunization Administration Dates Next Due Hep A, Adult 11/14/2020 Hep B, adult 11/14/2020 Influenza, high-dose, quadrivalent 04/03/2021, Influenza, injectable, quadr ivalent, preservative free 04/11/2019,05/07/2018 Moderna COVID-19 Vaccine (Re d Cap) 12+ years 06/07/2021,10/03/2020,09/05/2020 Pneumococcal Polysaccharide PPV23 10/23/2018,10/2018 Zoster, Recombinant 11/18/2022 Family History Medical History Relation Name Comments Heart attack Brother Menorrhagia Father Sick sinus syndrome Father Stroke Father Kidney failure Mother Heart attack Sister Relation Name Status Comments Brother Father Mother Sister Social History Tobacco Use Types Packs/Day Years Used Date Smoking Tobacco: Former Cigarettes 2 50 1 973 - 2019 Passive Smoke Exposure: Never Smokeless Tobacco: Former Alcohol Use Standard Drinks/Week Comments Yes 0 (1 standard drink = 0.6 oz pur e alcohol) Humiliation, Afraid, Rape, and Kick questionnair e Answer Date Recorded Within the last year, have y ou been afraid of your partner or ex-partner? No 03/11/2023 Within the last year, have y ou been humiliated or emotionally abused in other ways by your partner or ex-partner? No Within the last year, have y ou been kicked, hit, slapped, or otherwise physically hurt by your partner or ex-partner? No 03/11/2023 Within the last year, have y ou been raped or forced to have any kind of sexual activity by your partner or ex-partner? No 03/11/2023 Social Connection and Isolation Panel Answer Date Recorded In a typical week, how many times do you talk on the phone with family, friends, or neighbors? More than three times a week 03/11/2023 How often do you get togethe r with friends or relatives? More than three times a week 03/11/2023 How often do you attend chur or quaker services? Never 03/11/2023 Do you belong to any clubs o r organizations such as samaritan groups, unions, fraternal or athletic groups, or school groups? No 03/11/2023 How often do you attend meet ings of the clubs or organizations you belong to? Never 03/11/2023 Are you , , di vorced, , never , or living with a partner? 03/11/2023 AUDIT-C Answer Date Recorded Q1: How often do you have a drink containing alc ohol? Monthly or less 03/11/2023 Q2: How many drinks containi ng alcohol do you have on a typical day when you are drinking? 1 or 2 03/11/2023 Q3: How often do you have si x or more drinks on one occasion? Never 03/11/2023 Overall Financial Resource Strain (CARDIA) Answe r Date Recorded How hard is it for you to pa y for the very basics like food, housing, medical care, and heating? Somewhat hard 03/11/2023 PHQ-2 Answer Date Recorded Patient Health Questionnaire-2 Score 0 03/10/2023 [facility] - Occupational Stress Questionnaire Answer Date Recorded Do you feel stress - tense, restless, nervous, or anxious, or unable to sleep at night because your mind is troubled all the time - these days? Not at all 03/11/2023 Exercise Vital Sign Answer Date Recorde d On average, how many days pe r week do you engage in moderate to strenuous exercise (like a brisk walk)? 0 days 03/11/2023 On average, how many minutes do you engage in exercise at this level? 0 min 03/11/2023 Hunger Vital Sign Answer Date Recorded Within the past 12 months, y ou worried that your food would run out before you got the money to buy more. Never true 03/11/20 23 Within the past 12 months, t he food you bought just didn't last and you didn't have money to get more. Never true 03/11/2023 PRAPARE - Transportation Answer Date Re corded In the past 12 months, has l ack of transportation kept you from medical appointments or from getting medications? No 12/2022 In the past 12 months, has l ack of transportation kept you from meetings, work, or from getting things needed for daily living? No 03/11/2023 Housing Stability Vital Sign Answer Karl e Recorded In the last 12 months, was t here a time when you were not able to pay the mortgage or rent on time? No 03/11/2023 In the last 12 months, how many places have you lived? 1 03/11/2023 In the last 12 months, was t here a time when you did not have a steady place to sleep or slept in a prison (including now)? No 03/11/2023 Utilities Answer Date Recorded In the past 12 months has th e electric, gas, oil, or water company threatened to shut off services in your home? No 03/11/2023 PHQ-2A Answer Date Recorded Patient Health Questionnaire-2 Score 0 03/10/2023 Sex and Gender Information Value Date Recorded Sex Assigned at Not on file Legal Sex Male 7:14 PM EDT Gender Identity Not on file Sexual Orientation Not on file Last Filed Vital Signs Vital Sign Reading Time Taken Comments Blood Pressure 120/73 03/13/2023 11:40 AM EDT Pulse 71 03/13/2023 11:40 AM EDT Temperature 36.4 C (97.5 F) 03/10/2023 10:07 AM EDT Respiratory Rate 14 03/13/2023 11:40 AM EDT Oxygen Saturation 98% 03/13/2023 11:40 AM EDT Inhaled Oxygen Concentration - - Weight 105 kg (230 lb 9.6 oz) 03/13/2023 11:40 A M EDT Height 182.9 cm (6') 03/13/2023 11:40 AM EDT Body Mass Index 31.28 03/13/2023 11:40 AM EDT Plan of Treatment Health Maintenance Due Date Last Done Comments [facility]-Medicare Annual Wellness (AWV) 1954 [facility]-/Child/Adol SDOH Screenings 1954 [facility]- SDOH Screenings 1972 [facility]-Adult SDOH Screenings 1972 [facility]-DTaP,Tdap,and Td Vaccines (1 - Tdap) 1973 CT Colonography 09/09/1999 Colonoscopy 09/09/1999 FIT-DNA 09/09/1999 FIT 09/09/1999 FOBT 09/09/1999 Sigmoidoscopy 09/09/1999 [facility]-Colorectal Cancer Screening 09/09/1999 Lung Cancer Screening Shared Decision Making 2004 [facility]-Abdominal Aortic Aneurysm (AAA) Screening 09/09/2019 [facility]-Pneumococcal Vaccine: 50+ Years (2 of 2 - PCV) 10/24/2019 10/23/2018, 08/09/2018 [facility]-Zoster Vaccines (2 of 2) 01/13/2023 11/18/2022 [facility]-Lung Cancer Screening 02/15/2024 02/14/2023, [facility]-Depression Screening 03/10/2024 03/10/2023 [facility]-KUDWF-26 Vaccine ( - 2024- season) 2025 06/07/2021, 10/03/2020, 09/05/2020 [facility]-Influenza Vaccine (#1) 03/06/202504/03, 04/19/2020, 04/11/2019, Additional history exists [facility]-RSV Vaccine: 60+ Years or (1 - 1-dose 75+ series) 2029 [facility]-Hepatitis A Vaccines Aged Out 11/14/2020 No longer eligible based on patient's age to complete this topic [facility]-Hepatitis C Screening Completed 02/18/2023 [facility]-Obesity Intervention Completed 023, 03/13/2023, 03/10/2023 HPV Vaccines Aged Out No longer eligi ble based on patient's age to complete this topic [facility]-HIB Vaccines Aged Out No longer e ligible based on patient's age to complete this topic [facility]-IPV Vaccines Aged Out No longer e ligible based on patient's age to complete this topic [facility]-Rotavirus Vaccines Aged Out No lo nger eligible based on patient's age to complete this topic Medical Devices Implanted Type Area Cricket Coach Device Identifier Shelf Expiration Date Model / Serial / Lot Lead Cutter - [id number] Implanted:Qty: 1 on 02/26/2023 by Yuval Paredes MD at [facility] [id number] 10/22/2024 [id number] / / [id number] Procedures Procedure Name Priority Date/Time Associated Diagnosis Comments HEPATITIS C ANTIBODY W/REFLEX TO HCV QUANT PCR Routine 02/18/2023 3:[address] CHEST W IV CONTRAST 02/14/2023 9:20 AM EDT from Last 3 Months or Most Recently Relevant to Health Maintenance Results * Hepatitis C Antibody (02/18/2023 3:09 AM EDT) Hepatitis C Antibody Negative Negative 02/18/2023 4:22 AM EDT [facility] Blood Venous blood specimen / Unknown Venipuncture / Unknown 02/18/2023 3:09 AM EDT 02/18/2023 3:32 AM EDT Skip Naylor MD LAB BLOOD ORDERABLES Final Res [facility] [address] [place] [address] * CT Chest w IV Contrast (02/14/2023 9:20 AM EDT) Anatomical Region Laterality Modality Chest Computed Tomogra phy 02/14/2023 9:20 AM EDT us External Provider IMG CT PROCEDURES Final Result from Last 3 Months or Most Recently Relevant to Health Maintenance Additional Health Concerns Infection Onset Date Last Indicated MRSA 02/15/2023 02/26/2023 ESBL 02/26/2023 02/26/2023 VISA Comment:Swab of pacemaker pocked Collected 8.24.23 Vancomycin 3.0 ug/ml - Intermediate 02/26/2023 03/03/2023 Insurance 2007 DANAY CLAIRE [id number] [facility] MEDICARE Advance Directives * Full Code (Latest Code Status on File) Date Activated Date Inactivated Comments 02/26/2023 2:37 PM 03/02/2023 8:06 PM Question Answer Comments Patient has decision-making capacity? Yes * Full Code Date Activated Date Inactivated Comments 02/15/2023 1:04 PM 02/26/2023 2:37 PM Question Answer Comments Patient has decision-making capacity? Yes Care Teams Driver License Agent Relationship Specialty Start Date End Date David Domingo MD [address] [place] [address] DANAY Riley [address] PCP - General 11/16/20
--- OUTSIDE RECORDS SUMMARY | 2025-06-08 12:15 | XMS_ITS | Encounter Summary ---
Author Organization [facility] Address [address] [place] [address] Care Team Providers Care Clinical Programmer Name Role Phone David Domingo MD Primary Care Provider + [phone] Meenakshi Carlos LPN Unavailable Unavailabl e Encounter Details Date Type Department Care Team (Late st Contact Info) Description 01/22/2023 Orders Only External Location [address] [place] [address] Santana Beyer MD [address] [place] [address] [address] [place] [address] Social History Tobacco Use Types Packs/Day Years [...] Procedure Name Priority Date/Time Associated Diagnosis Comments XR CHEST 1 VIEW 01/22/2023 3:15 PM EDT documented in this encounter Results * XR Chest 1 View (01/22/2023 3:15 PM EDT) Anatomical Region Laterality Modality Chest Digital Radiogra phy 01/22/2023 3:15 PM EDT us Santana Beyer MD IMG XR PROCEDURES Final Re sult documented in this encounter Visit Diagnoses Not on filedocumented in this encounter Additional Health Concerns Infection Onset Date Last Indicated Resolved Time MRSA 02/15/2023 02/26/2023 C. difficile Rule-Out 02/18/2023 02/19/20232022 11:05 AM EDT ESBL 02/26/2023 02/26/2023 VISA Comment:Swab of pacemaker pocked Collected 8.24.23 Vancomycin 3.0 ug/ml - Intermediate 02/26/2023 03/03/2023 documented as of this encounter Care Teams Clinical Programmer Relationship Specialty Start Date End Date David Domingo MD [address] [place] [address] PCP - General 11/16/20 Meenakshi Carlos, SEO EXPERT VALUE-BASED [place] [address] None TCM Nurse 03/06/23 04/02/23 documented as of this encounter
--- OUTSIDE RECORDS SUMMARY | 2025-06-08 12:15 | XMS_ITS | Encounter Summary ---
Author Organization [facility] Address [address] [place] [address] Care Team Providers Care Traveling Freight Agent Name Role Phone David Domingo MD Primary Care Provider + [phone] Meenakshi Carlos LPN Unavailable Unavailabl e Encounter Details Date Type Department Care Team (Late st Contact Info) Description 01/22/2023 Orders Only External Location [address] [place] [address] Santana Beyer MD [address] [place] [address] [address] [place] [address] Social History Tobacco Use Types Packs/Day Years [...] Procedure Name Priority Date/Time Associated Diagnosis Comments IR OUTSIDE IMAGES 01/22/2023 12:00 AM EDT documented in this encounter Results * IR OUTSIDE IMAGES (01/22/2023 12:00 AM EDT) Anatomical Region Laterality Modality X-Ray Angiograph y 01/22/2023 us Santana Beyer MD IMG IR PROCEDURES Final Re sult documented in this encounter Visit Diagnoses Not on filedocumented in this encounter Additional Health Concerns Infection Onset Date Last Indicated Resolved Time MRSA 02/15/2023 02/26/2023 C. difficile Rule-Out 02/18/2023 02/19/20232022 11:05 AM EDT ESBL 02/26/2023 02/26/2023 VISA Comment:Swab of pacemaker pocked Collected 8.24.23 Vancomycin 3.0 ug/ml - Intermediate 02/26/2023 03/03/2023 documented as of this encounter Care Teams Traveling Freight Agent Relationship Specialty Start Date End Date David Domingo MD [address] [place] [address] PCP - General 11/16/20 Meenakshi Carlos LPN [employer] [address] None TCM Nurse 03/06/23 04/02/23 documented as of this encounter
--- OUTSIDE RECORDS SUMMARY | 2025-06-08 12:15 | XMS_ITS | Encounter Summary ---
Author Organization [facility] Address [address] [place] [address] Care Team Providers Care Mathematical Engineering Technician Name Role Phone David Domingo MD Primary Care Provider + [phone] Meenakshi Carlos LPN Unavailable Unavailabl e Encounter Details Date Type Department Care Team (Late st Contact Info) Description 02/16/2023 Lab Requisition [facility] [address] [place] [address] Elva Washington MD [address] [facility] [address] [place] [address] Encounter for general adult medical examination without abnormal findings Social History Tobacco Use Types Packs/Day Years Used Date Smoking Tobacco: Every Day Alcohol Use Standard Drinks/Week Comments Yes 0 (1 standard drink = 0.6 oz pur e alcohol) Sex and Gender Information Value Date Recorded Sex Assigned at Not on file Legal Sex Male 7:14 PM EDT Gender Identity Not on file Sexual Orientation Not on file documented as of this encounter Functional Status * Calculated C-SSRS Risk Score (Lifetime/Recent) Answer Date of Assessment Author No Risk Indicated 02/18/2023 8:00 AM EDT Arabella Montanez RN * Question Answer Date of Assessment Author 1. Wish to be (Past 1 Month) No 02/18/2023 8:00 AM EDT Hannah Zhang RN 2. Non-Specific Active Suicidal Thoughts (Past 1 Month) No 02/18/2023 8:00 AM EDT Fister-Mesch, Sop hia G, RN 6. Suicidal Behavior (Lifetime) No 02/18/2023 8:00 AM EDT Hannah Zhang RN documented as of this encounter Plan of Treatment Not on file documented as of this encounter Procedures Procedure Name Priority Date/Time Associated Diagnosis Comments MULTI DRUG RESISTANCE TEST Routine 02/16/2023 10:12 AM EDT Encounter for general adult medical examination without abnormal findings documented in this encounter Results * Multi Drug Resistance Test (02/16/2023 10:12 AM EDT) Culture No growth at day 2 02/18/2023 11:21 AM EDT [facility] Swab (Nares and Adela Rectal) 02/16/2023 10:12 AM EDT 02/16/2023 10:23 AM EDT Elva Stuart MD LAB MICROBIOLOGY - GENERAL ORDERABLES Final Result Performing Organization Address City/State/[facility] Co de Phone Number [facility] [address] [place] [address] documented in this encounter Visit Diagnoses Diagnosis Encounter for general adult medical examination without abnormal findings documented in this encounter Additional Health Concerns Infection Onset Date Last Indicated Resolved Time MRSA 02/15/2023 02/26/2023 C. difficile Rule-Out 02/18/2023 02/19/20232022 11:05 AM EDT ESBL 02/26/2023 02/26/2023 VISA Comment:Swab of pacemaker pocked Collected 8.24.23 Vancomycin 3.0 ug/ml - Intermediate 02/26/2023 03/03/2023 documented as of this encounter Care Teams Mathematical Engineering Technician Relationship Specialty Start Date End Date David Domingo MD [address] [place] [address] PCP - General 11/16/20 Meenakshi Carlos LPN [employer] [address] None TCM Nurse 03/06/23 04/02/23 documented as of this encounter
--- OUTSIDE RECORDS SUMMARY | 2025-06-08 12:15 | XMS_ITS | Encounter Summary ---
Author Organization Healthcare Address [address] [place] [id number] Care Team Providers Care Bingo Attendant Name Role Phone David Domingo MD Primary Care Provider + [phone] Meenakshi Carlos LPN Unavailable Unavailabl e Encounter Details Date Type Department Care Team ([facility] st Contact Info) Description 01/24/2023 Orders Only External Location [address] [place] [address] Provider, External Social History Tobacco Use Types Packs/Day Years [...] Associated Diagnosis Comments XR CHEST 1 VIEW 01/24/2023 1:31 PM EDT documented in this encounter Results * XR Chest 1 View (01/24/2023 1:31 PM EDT) Anatomical Region Laterality Modality Chest Digital Radiogra phy 01/24/2023 1:31 PM EDT us External Provider IMG XR PROCEDURES Final Result documented in this encounter Visit Diagnoses Not on filedocumented in this encounter Additional Health Concerns Infection Onset Date Last Indicated Resolved Time MRSA 02/15/2023 02/26/2023 C. difficile Rule-Out 02/18/2023 02/19/20232022 11:05 AM EDT ESBL 02/26/2023 02/26/2023 VISA Comment:Swab of pacemaker pocked Collected 8.. Vancomycin 3.0 ug/ml - Intermediate 02/26/2023 03/03/2023 documented as of this encounter Care Teams Bingo Attendant Relationship Specialty Start Date End Date David Domingo MD [address] [place] [address] PCP - General 11/16/20 Meenakshi Carlos, JUSTINA VALUE-[employer]ED [place] [address] None TCM Nurse 03/06/23 04/02/23 documented as of this encounter
--- OUTSIDE RECORDS SUMMARY | 2025-06-08 12:15 | XMS_ITS | Encounter Summary ---
Author Organization [facility] Address [address] [place] [address] Care Team Providers Care Fig Caprifier Name Role Phone David Domingo MD Primary Care Provider [phone] Meenakshi Carlos LPN Unavailable Unavailabl e Encounter Details Date Type Department Care Team (Late st Contact Info) Description 01/27/2023 Orders Only External Location [address] [place] [address] Janet Franco, BENCH ASSEMBLER OPERATOR [address] [facility] [address] [place] [address] [place] [address] Social History Tobacco Use Types Packs/Day Years [...] Procedure Name Priority Date/Time Associated Diagnosis Comments CT ANGIO CHEST 01/27/2023 10:04 AM EDT documented in this encounter Results * CT Angio Chest (01/27/2023 10:04 AM EDT) Anatomical Region Laterality Modality Chest Computed Tomogra phy 01/27/2023 10:0 4 AM EDT Janet Franco BENCH ASSEMBLER OPERATOR IMG CT PROCEDURES [place] l Result documented in this encounter Visit Diagnoses Not on filedocumented in this encounter Additional Health Concerns Infection Onset Date Last Indicated Resolved Time MRSA 02/15/2023 02/26/2023 C. difficile Rule-Out 02/18/2023 02/19/20232022 11:05 AM EDT ESBL 02/26/2023 02/26/2023 VISA Comment:Swab of pacemaker pocked Collected 8.24.23 Vancomycin 3.0 ug/ml - Intermediate 02/26/2023 03/03/2023 documented as of this encounter Care Teams Fig Caprifier Relationship Specialty Start Date End Date David Domingo MD [address] [place] [address] PCP - General 11/16/20 Meenakshi Carlos, JUSTINA VALUE-BASED [place] [address] None TCM Nurse 03/06/23 04/02/23 documented as of this encounter
[2025-06-08 14:10] LABS: Free T4 (Free Thyroxine) 1.29 ng/dl (0.78-2.19)
[2025-06-08 14:22] LABS: Thyroid Stimulating Hormone 1.06 uIU/mL (0.465-4.68)
== END 2025-06-08 23:59 | disposition home or self-care (01) ==
LOC: LAB 12:13
PROVIDERS: PCP Family Medicine; Visit Provider Student in an Organized Health Care Education/Training Program
DX: R93.89 Abnormal findings on diagnostic imaging of other specified body structures (principal)
CPT/HCPCS: 36415; 84439; 84443